=== PATIENT | male | born 1945 | race Two or more races ===

== ENCOUNTER 2023-05-28 16:16 | Inpatient (IN) | payer MEDICARE, OTHER ==
[~2023-05-28] VITALS: Ht 165.1 cm; Wt 64.4 kg
[~2023-05-28 16:16] MED LIST: DOXA1TAB; LANS15CA13
[2023-05-28 18:04] VITALS: O2SAT 94
[2023-05-28 18:11] VITALS: O2SAT 94
[2023-05-28 19:00] VITALS: O2SAT 95
[2023-05-28] MEDS ORDERED: ACETAMINOPHEN 650 MG/20.3 ML UDC GT PRN (20:30)
[2023-05-28] MEDS ORDERED: GLUCAGON,HUMAN RECOMBINANT 1 MG/VIAL VIAL SQ PRN (20:30)
[2023-05-28] MEDS ORDERED: DEXTROSE 50%-WATER 50 ML DISP.SYRIN IV PRN (21:00)
[2023-05-28] MEDS: CHLORHEXIDINE GLUCONATE 15 ML UDC MM SCH (21:00)
[2023-05-28] MEDS: HEPARIN SODIUM, PORCINE 5000 UNITS/1 ML VIAL SQ SCH (21:00)
[2023-05-28] MEDS: LEVETIRACETAM SOL (5 ML) 100 MG/ML UDC GT SCH (21:00)
[2023-05-28] MEDS: BLOOD SUGAR DIAGNOSTIC 1 EACH STRIP IN SCH (21:32)
[2023-05-28] MEDS: INSULIN REGULAR, HUMAN 100 UNIT/ML 3 ML VIAL SQ PRN (21:32)
[2023-05-28] MEDS: LABETALOL HCL (100MG) 100 MG TABLET GT SCH (21:36)
[2023-05-28] MEDS: NEPRO 1,000 ML BOTTLE GT PRN (21:37)
[2023-05-28 22:00] VITALS: BP 141/72; TEMP 97.9; O2SAT 96
[2023-05-28] MEDS: ATORVASTATIN 10 MG TABLET GT SCH (22:00)
[2023-05-29] VITALS (8 sets, daily range): BP systolic 132–145; BP diastolic 68–80; TEMP 97.8–97.9; O2SAT 95–98
[2023-05-29] MEDS ORDERED: Z GUARD REMEDY 4 OZ OINT TP PRN (07:30)
[2023-05-29] MEDS ORDERED: THERAHONEY GEL 1.5 OZ TUBE TP PRN (07:30)
[2023-05-29] MEDS ORDERED: HYDROGEN PEROXIDE 480 ML BOTTLE TP PRN (08:30)
[2023-05-29] MEDS: ZINC OXIDE 56.7 GM TUBE TP SCH (09:00)
[2023-05-29] MEDS ORDERED: PREVACID (NF) 30 MG TAB GT SCH (09:00)
[2023-05-29] MEDS: THERAHONEY GEL 1.5 OZ TUBE TP SCH (09:00)
[2023-05-29] MEDS: Z GUARD REMEDY 4 OZ OINT TP SCH ×2 (09:00→10:00)
[2023-05-29] MEDS: HYDROGEN PEROXIDE 480 ML BOTTLE TP SCH (09:00)
[2023-05-29] MEDS: MINERAL OIL/PETROL OINT 396 GM JAR TP SCH (09:00)
[2023-05-29] MEDS: VITAMINS A AND D 56.7 GM TUBE TP SCH ×3 (09:00)
[2023-05-29] MEDS: MODAFINIL 100 MG TABLET GT SCH (10:00)
[2023-05-29] MEDS: AMLODIPINE BESYLATE 10 MG TABLET GT SCH (10:00)
[2023-05-29] MEDS: VIT B CMPLX 3/FA/VIT C/BIOTIN 1 TAB TABLET GT SCH (10:00)
[2023-05-29] MEDS: ASCORBIC ACID 500 MG TABLET GT SCH (10:00)
[2023-05-29] MEDS ORDERED: SILVER NITRATE APPLICATOR 1 EA BOX TP PRN (10:30)
[2023-05-29] MEDS: DAKINS QUARTER STRENGTH (0.125%) 480 ML BOTTLE TOP SCH (10:51)
[2023-05-29] MEDS: TUBERCULIN,PURIF.PROT.DERIV. 5 TU/0.1 ML VIAL ID SCH (14:20)
[2023-05-29] MEDS: ARGININE/GLUTAMINE/CALCIUM BMB 1 EACH POWD.PACK GT SCH (17:00)
[2023-05-29] MEDS: PROSTAT (PYXIS) 30 ML UDC GT SCH (17:00)
[2023-05-29] MEDS: ACETAMINOPHEN 650 MG/20 ML UDC- SA PATIENTS-PAIN ONLY GT SCH (20:00)
[2023-05-30] VITALS (7 sets, daily range): BP systolic 107–127; BP diastolic 77–100; TEMP 97.5–98.8; O2SAT 94–100
[2023-05-30] MEDS: PANTOPRAZOLE 40 MG/PACK PACK GT SCH (05:50)
[2023-05-30] MEDS: ZINC SULFATE 220 MG CAPSULE GT SCH (09:33)
[2023-05-30 11:16] LABS: BASOPHILS # (AUTO) 0.1 K/uL (0.0-0.2); BASOPHILS % (AUTO) 1.3 % (0.0-2.0); EOSINOPHILS # (AUTO) 0.5 K/uL (0.0-0.7); HEMATOCRIT 32 % (39-51); HEMOGLOBIN 10.5 g/dL (13.5-17.5); LYMPHOCYTES # (AUTO) 0.7 K/uL (0.8-4.8); LYMPHOCYTES % (AUTO) 7.7 % (20.0-44.0); MEAN CORPUSCULAR HEMOGLOBIN 30 PG (26.0-33.0); MEAN CORPUSCULAR HGB CONC 33 g/dl (31.0-36.0); MEAN CORPUSCULAR VOLUME 92 fL (80-96); MONOCYTES # (AUTO) 0.7 K/uL (0.1-1.30); MONOCYTES % (AUTO) 8.4 % (2.0-12.0); NEUTROPHILS # (AUTO) 6.8 K/uL (1.8-8.9); NEUTROPHILS % (AUTO) 76.6 % (43.0-81.0); PLATELET COUNT (AUTO) 257 K/uL (150-450); RED CELL DISTRIBUTION WIDTH 18.4 % (11.5-15.0); WHITE BLOOD COUNT (AUTO) 8.8 K/uL (4.3-11.0)
[2023-05-30 11:26] LABS: ALBUMIN 2.2 g/dL (3.4-5.0); BILIRUBIN,TOTAL 0.3 mg/dL (0.2-1.0); CALCIUM, SERUM 10.6 mg/dL (8.5-10.1); CREATININE 0.9 mg/dL (0.6-1.3); MAGNESIUM 1.7 mg/dL (1.8-2.4); PHOSPHORUS 5.2 mg/dL (2.5-4.9); POTASSIUM 3.4 mmol/L (3.5-5.1); TOTAL PROTEIN, SERUM 7.5 g/dL (6.4-8.2)
[2023-05-30] MEDS: EPOETIN ALFA (10,000 UNIT) 10,000 UNIT/ML VIAL SQ SCH (15:00)
[2023-05-30] MEDS: MEROPENEM 1 G in IV NS 0.9% 100 ML IV SCH (16:46)
[2023-05-30] MEDS: PNEUMOCOCCAL 23-VAL P-SAC VAC 0.5 ML VIAL IM ONE (17:20)
[2023-05-30] MEDS: VANCOMYCIN 0.75 GM in IV D5W 250 ML IV SCH (18:42)
[2023-05-30] MEDS: Magnesium 1GM/D5W 100ML PREMIX 100 ML IV SCH (19:00)
[2023-05-30] MEDS: POTASSIUM CHLORIDE 20 MEQ POWDER PACKET GT SCH (19:01)
[2023-05-30] MEDS ORDERED: IPRATROPIUM NEB FS 0.5 MG/2.5 ML AMPUL.NEB NEB PRN (21:00)
[2023-05-30] MEDS ORDERED: IPRATROPIUM NEB FS 0.5 MG/2.5 ML AMPUL.NEB NEB SCH (21:00)
[2023-05-30] MEDS ORDERED: ALBUTEROL FS 2.5 MG/3 ML VIAL.NEB NEB PRN (21:00)
[2023-05-31] VITALS (10 sets, daily range): BP systolic 111–138; BP diastolic 67–70; TEMP 97.7; O2SAT 93–98
[2023-05-31] MEDS: IPRATROPIUM NEB FS 0.5 MG/2.5 ML AMPUL.NEB NEB SCH (01:18)
[2023-05-31] MEDS: ALBUTEROL FS 2.5 MG/3 ML VIAL.NEB NEB SCH (01:19)
[2023-05-31 08:46] LABS: CALCIUM, SERUM 10.8 mg/dL (8.5-10.1); CARBON DIOXIDE 30 mmol/L (21-32); CHLORIDE 98 mmol/L (98-107); CREATININE 0.8 mg/dL (0.6-1.3); GLUCOSE 119 mg/dL (74-106); POTASSIUM 3.8 mmol/L (3.5-5.1); SODIUM SERUM 135 mmol/L (136-145); UREA NITROGEN, BLOOD 48 mg/dL (7-18)
[2023-05-31] MEDS: MEROPENEM 1 G in IV NS 0.9% 100 ML IV SCH (21:00)
[2023-06-01] VITALS (12 sets, daily range): BP systolic 116–133; BP diastolic 69–82; TEMP 97.4–97.7; O2SAT 95–98
[2023-06-01 07:53] LABS: CALCIUM, SERUM 10.9 mg/dL (8.5-10.1); CARBON DIOXIDE 25 mmol/L (21-32); CHLORIDE 98 mmol/L (98-107); CREATININE 0.9 mg/dL (0.6-1.3); GLUCOSE 118 mg/dL (74-106); POTASSIUM 3.9 mmol/L (3.5-5.1); SODIUM SERUM 134 mmol/L (136-145); UREA NITROGEN, BLOOD 62 mg/dL (7-18)
[2023-06-01] MEDS: MEROPENEM 1 G in IV NS 0.9% 100 ML IV SCH (09:00)
[2023-06-01] MEDS: IV 1/2NS 1000 ML 1,000 ML IV PRN (12:37)
[2023-06-01] MEDS ORDERED: Z GUARD REMEDY 2 OZ OINT TP SCH (21:00)
[2023-06-01] MEDS: Z GUARD REMEDY 4 OZ OINT TP SCH (21:04)
[2023-06-01] MEDS: DAKINS QUARTER STRENGTH (0.125%) 480 ML BOTTLE TOP SCH (21:04)
[2023-06-02] VITALS (11 sets, daily range): BP systolic 132–136; BP diastolic 77–83; TEMP 97.7–98.4; O2SAT 94–100
[2023-06-02 07:27] LABS: CALCIUM, SERUM 10.5 mg/dL (8.5-10.1); CREATININE 0.8 mg/dL (0.6-1.3); POTASSIUM 4.3 mmol/L (3.5-5.1)
[2023-06-02] MEDS: IV NS 0.9% 1,000 ML IV SCH (11:17)
[2023-06-03] VITALS (12 sets, daily range): BP systolic 121–134; BP diastolic 86–87; TEMP 98.1–98.2; O2SAT 97–100
[2023-06-03 07:43] LABS: CALCIUM, SERUM 10.8 mg/dL (8.5-10.1); CREATININE 0.8 mg/dL (0.6-1.3); MAGNESIUM 2.1 mg/dL (1.8-2.4); PHOSPHORUS 3.8 mg/dL (2.5-4.9); POTASSIUM 4.3 mmol/L (3.5-5.1)
[2023-06-03] MEDS: VANCOMYCIN 1 GM in IV D5W 250 ML IV SCH (09:00)
[2023-06-04] VITALS (12 sets, daily range): BP systolic 127–134; BP diastolic 71–86; TEMP 97.9; O2SAT 96–100
[2023-06-04 08:35] LABS: CALCIUM, SERUM 10.2 mg/dL (8.5-10.1); CARBON DIOXIDE 26 mmol/L (21-32); CHLORIDE 102 mmol/L (98-107); CREATININE 0.8 mg/dL (0.6-1.3); GLUCOSE 101 mg/dL (74-106); POTASSIUM 4.1 mmol/L (3.5-5.1); SODIUM SERUM 135 mmol/L (136-145); UREA NITROGEN, BLOOD 48 mg/dL (7-18)
[2023-06-05] VITALS (12 sets, daily range): BP systolic 126–142; BP diastolic 62–71; TEMP 97.9–98.1; O2SAT 95–100
[2023-06-05 08:09] LABS: CALCIUM, SERUM 10.1 mg/dL (8.5-10.1); CREATININE 0.8 mg/dL (0.6-1.3); POTASSIUM 4.4 mmol/L (3.5-5.1)
[2023-06-05] MEDS: VANCOMYCIN 1 GM in IV D5W 250 ML IV SCH (22:17)
[2023-06-06] VITALS (13 sets, daily range): BP systolic 97–115; BP diastolic 61–77; TEMP 97.8–98.4; O2SAT 97–99
[2023-06-06 08:15] LABS: CALCIUM, SERUM 9.9 mg/dL (8.5-10.1); CREATININE 0.8 mg/dL (0.6-1.3); POTASSIUM 4.2 mmol/L (3.5-5.1)
[2023-06-06 12:03] LABS: MAGNESIUM 1.8 mg/dL (1.8-2.4); PHOSPHORUS 3.5 mg/dL (2.5-4.9)
[2023-06-06 16:57] LABS: HEMOGLOBIN 11.7 g/dL (13.5-17.5)
[2023-06-07] VITALS (14 sets, daily range): BP systolic 106–111; BP diastolic 69–79; TEMP 97.6–98.6; O2SAT 93–99
[2023-06-07 07:23] LABS: CALCIUM, SERUM 10.3 mg/dL (8.5-10.1); CREATININE 0.8 mg/dL (0.6-1.3); POTASSIUM 4.3 mmol/L (3.5-5.1)
[2023-06-07] MEDS ORDERED: BARIUM SULFATE 98% 135 ML SUSP.RECON PO ONE (13:11)
[2023-06-08] VITALS (13 sets, daily range): BP systolic 115–128; BP diastolic 73–82; TEMP 97.7–97.9; O2SAT 95–100
[2023-06-08] MEDS: LIDOCAINE 1%-EPI 1:100,000 20 ML VIAL TP ONE (06:12)
[2023-06-08 08:13] LABS: CALCIUM, SERUM 10.5 mg/dL (8.5-10.1); CREATININE 0.8 mg/dL (0.6-1.3); POTASSIUM 4.5 mmol/L (3.5-5.1)
[2023-06-08] MEDS ORDERED: IPRATROPIUM NEB FS 0.5 MG/2.5 ML AMPUL.NEB NEB PRN (10:21)
[2023-06-08] MEDS ORDERED: ALBUTEROL FS 2.5 MG/3 ML VIAL.NEB NEB PRN (10:21)
[2023-06-08] MEDS: IPRATROPIUM NEB FS 0.5 MG/2.5 ML AMPUL.NEB NEB SCH (12:50)
[2023-06-08] MEDS: LOPERAMIDE HCL UDC 2 MG/15 ML LIQUID GT ONE (20:59)
[2023-06-09] VITALS (11 sets, daily range): BP systolic 102–121; BP diastolic 69–87; TEMP 97.7; O2SAT 94–98
[2023-06-09] MEDS ORDERED: LOPERAMIDE HCL UDC 2 MG/15 ML LIQUID GT PRN (01:00)
[2023-06-09] MEDS: PANTOPRAZOLE 40 MG/PACK PACK GT SCH (05:17)
[2023-06-09 09:32] LABS: CALCIUM, SERUM 10.6 mg/dL (8.5-10.1); POTASSIUM 4.6 mmol/L (3.5-5.1)
[2023-06-10] VITALS (10 sets, daily range): BP systolic 94–125; BP diastolic 70–73; TEMP 97.9–98.8; O2SAT 96–100
[2023-06-10 10:12] LABS: CALCIUM, SERUM 10.4 mg/dL (8.5-10.1); CARBON DIOXIDE 25 mmol/L (21-32); CHLORIDE 97 mmol/L (98-107); CREATININE 0.9 mg/dL (0.6-1.3); GLUCOSE 127 mg/dL (74-106); POTASSIUM 4.2 mmol/L (3.5-5.1); SODIUM SERUM 129 mmol/L (136-145); UREA NITROGEN, BLOOD 57 mg/dL (7-18)
[2023-06-11] VITALS (12 sets, daily range): BP systolic 107–114; BP diastolic 71–72; TEMP 97.5–97.7; O2SAT 95–100
[2023-06-11 06:43] LABS: BASOPHILS # (AUTO) 0.2 K/uL (0.0-0.2); BASOPHILS % (AUTO) 1.8 % (0.0-2.0); EOSINOPHILS # (AUTO) 0.4 K/uL (0.0-0.7); EOSINOPHILS % (AUTO) 4.2 % (0.0-6.0); HEMATOCRIT 36 % (39-51); LYMPHOCYTES # (AUTO) 0.8 K/uL (0.8-4.8); LYMPHOCYTES % (AUTO) 9.2 % (20.0-44.0); MEAN CORPUSCULAR HEMOGLOBIN 30 PG (26.0-33.0); MEAN CORPUSCULAR HGB CONC 34 g/dl (31.0-36.0); MEAN CORPUSCULAR VOLUME 89 fL (80-96); MONOCYTES # (AUTO) 0.4 K/uL (0.1-1.30); MONOCYTES % (AUTO) 4.8 % (2.0-12.0); NEUTROPHILS # (AUTO) 7.1 K/uL (1.8-8.9); PLATELET COUNT (AUTO) 214 K/uL (150-450); RED BLOOD CELL COUNT(AUTO) 3.97 MIL/uL (4.5-6.0); WHITE BLOOD COUNT (AUTO) 8.9 K/uL (4.3-11.0)
[2023-06-11 07:05] LABS: CALCIUM, SERUM 10.7 mg/dL (8.5-10.1); CREATININE 0.8 mg/dL (0.6-1.3); POTASSIUM 4.7 mmol/L (3.5-5.1)
[2023-06-12] VITALS (13 sets, daily range): BP systolic 112–147; BP diastolic 73–87; TEMP 98.1–98.2; O2SAT 94–99
[2023-06-12 09:33] LABS: CALCIUM, SERUM 10.3 mg/dL (8.5-10.1); CREATININE 0.8 mg/dL (0.6-1.3); POTASSIUM 4.9 mmol/L (3.5-5.1)
[2023-06-12] MEDS: VANCOMYCIN 1 GM in IV D5W 250 ML IV SCH (17:48)
[2023-06-13] VITALS (12 sets, daily range): BP systolic 94–96; BP diastolic 61–74; TEMP 97.5–97.7; O2SAT 95–100
[2023-06-13 09:46] LABS: CALCIUM, SERUM 10.5 mg/dL (8.5-10.1); CREATININE 0.9 mg/dL (0.6-1.3); POTASSIUM 5.5 mmol/L (3.5-5.1)
[2023-06-13] MEDS: SODIUM POLYSTYRENE SULFONATE 15 G/60 ML BOTTLE PO ONE (16:53)
[2023-06-14] VITALS (14 sets, daily range): BP systolic 88–105; BP diastolic 61–72; TEMP 98.1–98.4; O2SAT 91–99
[2023-06-14 08:03] LABS: CALCIUM, SERUM 8.6 mg/dL (8.5-10.1); CREATININE 0.8 mg/dL (0.6-1.3); POTASSIUM 4.2 mmol/L (3.5-5.1)
[2023-06-15] VITALS (13 sets, daily range): BP systolic 110–111; BP diastolic 69–70; TEMP 97.5–98.1; O2SAT 94–97
[2023-06-15 08:05] LABS: CALCIUM, SERUM 10.6 mg/dL (8.5-10.1); CARBON DIOXIDE 27 mmol/L (21-32); CHLORIDE 95 mmol/L (98-107); CREATININE 0.9 mg/dL (0.6-1.3); GLUCOSE 101 mg/dL (74-106); POTASSIUM 3.9 mmol/L (3.5-5.1); SODIUM SERUM 130 mmol/L (136-145); UREA NITROGEN, BLOOD 55 mg/dL (7-18)
[2023-06-15] MEDS: BISACODYL SUPP (10 MG) 10 MG/SUPP.RECT SUPP.RECT RC PRN (19:12)
[2023-06-16] VITALS (12 sets, daily range): BP systolic 102–103; BP diastolic 63–66; TEMP 97.6–98.1; O2SAT 93–99
[2023-06-16 08:16] LABS: CALCIUM, SERUM 10.6 mg/dL (8.5-10.1); CARBON DIOXIDE 28 mmol/L (21-32); CHLORIDE 94 mmol/L (98-107); CREATININE 0.8 mg/dL (0.6-1.3); GLUCOSE 91 mg/dL (74-106); POTASSIUM 3.7 mmol/L (3.5-5.1); SODIUM SERUM 130 mmol/L (136-145); UREA NITROGEN, BLOOD 62 mg/dL (7-18)
[2023-06-17] VITALS (12 sets, daily range): BP systolic 101–137; BP diastolic 71–82; TEMP 97.7–97.8; O2SAT 93–99
[2023-06-17 07:43] LABS: CALCIUM, SERUM 10.5 mg/dL (8.5-10.1); CREATININE 0.9 mg/dL (0.6-1.3); POTASSIUM 3.8 mmol/L (3.5-5.1)
[2023-06-18] VITALS (14 sets, daily range): BP systolic 94–122; BP diastolic 65–87; TEMP 97.9–98.2; O2SAT 93–99
[2023-06-18 07:25] LABS: BASOPHILS # (AUTO) 0.1 K/uL (0.0-0.2); BASOPHILS % (AUTO) 1.2 % (0.0-2.0); EOSINOPHILS # (AUTO) 0.3 K/uL (0.0-0.7); EOSINOPHILS % (AUTO) 2.7 % (0.0-6.0); HEMATOCRIT 35 % (39-51); HEMOGLOBIN 11.7 g/dL (13.5-17.5); LYMPHOCYTES # (AUTO) 0.7 K/uL (0.8-4.8); LYMPHOCYTES % (AUTO) 7.8 % (20.0-44.0); MEAN CORPUSCULAR HEMOGLOBIN 30 PG (26.0-33.0); MEAN CORPUSCULAR HGB CONC 33 g/dl (31.0-36.0); MEAN CORPUSCULAR VOLUME 91 fL (80-96); MONOCYTES # (AUTO) 0.8 K/uL (0.1-1.30); MONOCYTES % (AUTO) 8.8 % (2.0-12.0); NEUTROPHILS # (AUTO) 7.3 K/uL (1.8-8.9); NEUTROPHILS % (AUTO) 79.5 % (43.0-81.0); PLATELET COUNT (AUTO) 209 K/uL (150-450); RED BLOOD CELL COUNT(AUTO) 3.86 MIL/uL (4.5-6.0); RED CELL DISTRIBUTION WIDTH 18.6 % (11.5-15.0); WHITE BLOOD COUNT (AUTO) 9.2 K/uL (4.3-11.0)
[2023-06-18 08:30] LABS: CREATININE 0.9 mg/dL (0.6-1.3); POTASSIUM 3.8 mmol/L (3.5-5.1)
[2023-06-18 08:42] LABS: CALCIUM, SERUM 10.7 mg/dL (8.5-10.1)
[2023-06-19] VITALS (12 sets, daily range): BP systolic 112–122; BP diastolic 70–83; TEMP 97.7–97.9; O2SAT 95–99
[2023-06-20] VITALS (12 sets, daily range): BP systolic 108–128; BP diastolic 67–77; TEMP 97–97.9; O2SAT 94–99
[2023-06-20 08:18] LABS: CALCIUM, SERUM 10.9 mg/dL (8.5-10.1); CREATININE 0.9 mg/dL (0.6-1.3); POTASSIUM 3.4 mmol/L (3.5-5.1)
[2023-06-20] MEDS: POTASSIUM CHLORIDE 20 MEQ POWDER PACKET NG SCH (15:27)
[2023-06-21] VITALS (12 sets, daily range): BP systolic 93–121; BP diastolic 68–75; TEMP 97.4–99; O2SAT 96–100
[2023-06-21 08:07] LABS: VIT D, 25-HYDROXY 42.7 ng/mL (30.0-100.0)
[2023-06-21 08:12] LABS: CALCIUM, SERUM 10.9 mg/dL (8.5-10.1); CARBON DIOXIDE 28 mmol/L (21-32); CHLORIDE 100 mmol/L (98-107); CREATININE 0.9 mg/dL (0.6-1.3); GLUCOSE 106 mg/dL (74-106); SODIUM SERUM 134 mmol/L (136-145); UREA NITROGEN, BLOOD 70 mg/dL (7-18)
[2023-06-22] VITALS (12 sets, daily range): BP systolic 94–103; BP diastolic 61–66; TEMP 98.2–98.4; O2SAT 95–99
[2023-06-22 08:13] LABS: CALCIUM, SERUM 10.2 mg/dL (8.5-10.1); CARBON DIOXIDE 23 mmol/L (21-32); CHLORIDE 99 mmol/L (98-107); CREATININE 0.7 mg/dL (0.6-1.3); GLUCOSE 103 mg/dL (74-106); SODIUM SERUM 133 mmol/L (136-145); UREA NITROGEN, BLOOD 59 mg/dL (7-18)
[2023-06-22] MEDS: Z GUARD REMEDY 4 OZ OINT TP SCH (09:06)
[2023-06-22] MEDS: THERAHONEY GEL 1.5 OZ TUBE TP SCH (09:07)
[2023-06-22] MEDS: VANCOMYCIN 1 GM in IV D5W 250 ML IV SCH (18:55)
[2023-06-23] VITALS (11 sets, daily range): BP systolic 103–115; BP diastolic 71–72; TEMP 97.4–98.9; O2SAT 95–99
[2023-06-23 08:49] LABS: CALCIUM, SERUM 10.6 mg/dL (8.5-10.1); CREATININE 0.9 mg/dL (0.6-1.3); POTASSIUM 3.7 mmol/L (3.5-5.1)
[2023-06-24] VITALS (11 sets, daily range): BP systolic 105–116; BP diastolic 70–78; TEMP 97–97.9; O2SAT 94–99
[2023-06-24 08:19] LABS: CALCIUM, SERUM 10.9 mg/dL (8.5-10.1); CREATININE 0.8 mg/dL (0.6-1.3); POTASSIUM 3.7 mmol/L (3.5-5.1)
[2023-06-24] MEDS: VANCOMYCIN 1 GM in IV D5W 250 ML IV SCH (17:35)
[2023-06-25] VITALS (13 sets, daily range): BP systolic 117–119; BP diastolic 68–82; TEMP 97.7–98.6; O2SAT 95–99
[2023-06-25 08:42] LABS: CALCIUM, SERUM 10.7 mg/dL (8.5-10.1); CREATININE 0.7 mg/dL (0.6-1.3); POTASSIUM 3.8 mmol/L (3.5-5.1)
[2023-06-26] VITALS (12 sets, daily range): BP systolic 107–116; BP diastolic 70–76; TEMP 98.4–98.6; O2SAT 94–100
[2023-06-26 08:14] LABS: CALCIUM, SERUM 10.9 mg/dL (8.5-10.1); CARBON DIOXIDE 29 mmol/L (21-32); CHLORIDE 104 mmol/L (98-107); CREATININE 0.9 mg/dL (0.6-1.3); GLUCOSE 107 mg/dL (74-106); POTASSIUM 3.4 mmol/L (3.5-5.1); SODIUM SERUM 141 mmol/L (136-145); UREA NITROGEN, BLOOD 50 mg/dL (7-18)
[2023-06-26] MEDS: POTASSIUM CHLORIDE 20 MEQ POWDER PACKET GT ONE (14:02)
[2023-06-27] VITALS (12 sets, daily range): BP systolic 98–104; BP diastolic 74–85; TEMP 98.1–98.3; O2SAT 95–100
[2023-06-27 07:49] LABS: CALCIUM, SERUM 11.5 mg/dL (8.5-10.1); CREATININE 0.9 mg/dL (0.6-1.3); POTASSIUM 3.8 mmol/L (3.5-5.1)
[2023-06-28] VITALS (13 sets, daily range): BP systolic 109–112; BP diastolic 71–75; TEMP 98.2–98.6; O2SAT 95–99
[2023-06-28 08:40] LABS: CARBON DIOXIDE 26 mmol/L (21-32); CHLORIDE 104 mmol/L (98-107); CREATININE 0.9 mg/dL (0.6-1.3); GLUCOSE 99 mg/dL (74-106); SODIUM SERUM 138 mmol/L (136-145); UREA NITROGEN, BLOOD 52 mg/dL (7-18)
[2023-06-29] VITALS (12 sets, daily range): BP systolic 112; BP diastolic 72–73; TEMP 98.1–98.6; O2SAT 94–100
[2023-06-29 07:43] LABS: BASOPHILS # (AUTO) 0.1 K/uL (0.0-0.2); BASOPHILS % (AUTO) 0.8 % (0.0-2.0); EOSINOPHILS # (AUTO) 0.3 K/uL (0.0-0.7); EOSINOPHILS % (AUTO) 3.8 % (0.0-6.0); HEMATOCRIT 35 % (39-51); HEMOGLOBIN 11.9 g/dL (13.5-17.5); LYMPHOCYTES # (AUTO) 0.7 K/uL (0.8-4.8); LYMPHOCYTES % (AUTO) 8.4 % (20.0-44.0); MEAN CORPUSCULAR HEMOGLOBIN 31 PG (26.0-33.0); MEAN CORPUSCULAR HGB CONC 34 g/dl (31.0-36.0); MEAN CORPUSCULAR VOLUME 93 fL (80-96); MONOCYTES # (AUTO) 0.7 K/uL (0.1-1.30); MONOCYTES % (AUTO) 8.3 % (2.0-12.0); NEUTROPHILS # (AUTO) 6.9 K/uL (1.8-8.9); NEUTROPHILS % (AUTO) 78.7 % (43.0-81.0); PLATELET COUNT (AUTO) 197 K/uL (150-450); RED CELL DISTRIBUTION WIDTH 18.1 % (11.5-15.0); WHITE BLOOD COUNT (AUTO) 8.8 K/uL (4.3-11.0)
[2023-06-29 07:49] LABS: CALCIUM, SERUM 10.9 mg/dL (8.5-10.1); CARBON DIOXIDE 25 mmol/L (21-32); CHLORIDE 103 mmol/L (98-107); CREATININE 0.9 mg/dL (0.6-1.3); GLUCOSE 98 mg/dL (74-106); POTASSIUM 4.2 mmol/L (3.5-5.1); SODIUM SERUM 137 mmol/L (136-145); UREA NITROGEN, BLOOD 53 mg/dL (7-18)
[2023-06-29] MEDS: VITAMINS A AND D 56.7 GM TUBE TP SCH (08:58)
[2023-06-30] VITALS (12 sets, daily range): BP systolic 101–125; BP diastolic 66–78; TEMP 97.7–98.1; O2SAT 94–100
[2023-06-30 09:27] LABS: CALCIUM, SERUM 10.9 mg/dL (8.5-10.1); POTASSIUM 3.5 mmol/L (3.5-5.1)
[2023-07-01] VITALS (13 sets, daily range): BP systolic 109–110; BP diastolic 69–70; TEMP 97.9; O2SAT 95–100
[2023-07-01 08:16] LABS: CALCIUM, SERUM 11.4 mg/dL (8.5-10.1); POTASSIUM 3.7 mmol/L (3.5-5.1)
[2023-07-02] VITALS (12 sets, daily range): BP systolic 98–101; BP diastolic 62–67; TEMP 97.7–98.9; O2SAT 95–100
[2023-07-02 07:09] LABS: CREATININE 0.8 mg/dL (0.6-1.3); POTASSIUM 3.6 mmol/L (3.5-5.1)
[2023-07-03] VITALS (12 sets, daily range): BP systolic 104–125; BP diastolic 65–79; TEMP 97.5–99.1; O2SAT 95–100
[2023-07-03 07:34] LABS: CALCIUM, SERUM 10.8 mg/dL (8.5-10.1); CREATININE 0.8 mg/dL (0.6-1.3); POTASSIUM 3.5 mmol/L (3.5-5.1)
[2023-07-04] VITALS (12 sets, daily range): BP systolic 104–105; BP diastolic 69–88; TEMP 97.9–98.6; O2SAT 91–100
[2023-07-04 07:58] LABS: CALCIUM, SERUM 11.4 mg/dL (8.5-10.1); CREATININE 0.9 mg/dL (0.6-1.3); POTASSIUM 3.4 mmol/L (3.5-5.1)
[2023-07-04] MEDS: POTASSIUM CHLORIDE 20 MEQ POWDER PACKET GT ONE (20:53)
[2023-07-05] VITALS (12 sets, daily range): BP systolic 107; BP diastolic 74; TEMP 97.5; O2SAT 94–98
[2023-07-05 07:26] LABS: CALCIUM, SERUM 11.3 mg/dL (8.5-10.1); CREATININE 0.9 mg/dL (0.6-1.3); POTASSIUM 4.2 mmol/L (3.5-5.1)
[2023-07-06] VITALS (12 sets, daily range): BP systolic 96–106; BP diastolic 70–77; TEMP 97.5–97.9; O2SAT 95–99
[2023-07-06 07:57] LABS: CALCIUM, SERUM 10.9 mg/dL (8.5-10.1); CARBON DIOXIDE 26 mmol/L (21-32); CHLORIDE 101 mmol/L (98-107); CREATININE 0.8 mg/dL (0.6-1.3); GLUCOSE 103 mg/dL (74-106); POTASSIUM 3.8 mmol/L (3.5-5.1); SODIUM SERUM 136 mmol/L (136-145); UREA NITROGEN, BLOOD 55 mg/dL (7-18)
[2023-07-06 12:02] LABS: BASOPHILS # (AUTO) 0.1 K/uL (0.0-0.2); BASOPHILS % (AUTO) 1.1 % (0.0-2.0); EOSINOPHILS # (AUTO) 0.3 K/uL (0.0-0.7); EOSINOPHILS % (AUTO) 3.6 % (0.0-6.0); HEMATOCRIT 32 % (39-51); HEMOGLOBIN 10.8 g/dL (13.5-17.5); LYMPHOCYTES # (AUTO) 0.7 K/uL (0.8-4.8); LYMPHOCYTES % (AUTO) 8.8 % (20.0-44.0); MEAN CORPUSCULAR HEMOGLOBIN 31 PG (26.0-33.0); MEAN CORPUSCULAR HGB CONC 34 g/dl (31.0-36.0); MEAN CORPUSCULAR VOLUME 92 fL (80-96); MONOCYTES # (AUTO) 0.9 K/uL (0.1-1.30); MONOCYTES % (AUTO) 10.7 % (2.0-12.0); NEUTROPHILS % (AUTO) 75.8 % (43.0-81.0); PLATELET COUNT (AUTO) 199 K/uL (150-450); RED BLOOD CELL COUNT(AUTO) 3.45 MIL/uL (4.5-6.0); RED CELL DISTRIBUTION WIDTH 17.9 % (11.5-15.0)
[2023-07-06 17:12] LABS: APPEARANCE,URINE CLEAR (CLEAR); BILIRUBIN,URINE NEGATIVE (NEGATIVE); BLOOD, URINE NEGATIVE Ery/uL (NEGATIVE); COLOR,URINE YELLOW (YELLOW); KETONES,URINE NEGATIVE (NEGATIVE); LEUKOCYTE ESTERASE ,URINE NEGATIVE (NEGATIVE); NITRITE, URINE NEGATIVE (NEGATIVE); PROTEIN,URINE TRACE mg/dl (NEGATIVE); UGLUCOSE NEGATIVE (NEGATIVE); UROBILINOGEN,URINE 0.2 EU/dL (0.2)
[2023-07-06] MEDS: VANCOMYCIN HCL 1.25 GM in IV D5W 250 ML IV SCH (17:26)
[2023-07-06 17:37] LABS: ADD URINE CULTURE NO; BACTERIA,URINE None seen /HPF (None Seen); RBC,URINE 0-2 /HPF (0-2); WBC,URINE 0-2 /HPF (0-3)
[2023-07-06 17:38] LABS: MUCUS,URINE Few /LPF (None Seen); SQUAMOUS EPITHELIAL CELL,UR 0-2 /HPF (None Seen)
[2023-07-06] MEDS: IV NS 0.9% 1,000 ML IV SCH (20:40)
[2023-07-07] VITALS (14 sets, daily range): BP systolic 100–113; BP diastolic 62–72; TEMP 98–98.1; O2SAT 94–100
[2023-07-07 08:12] LABS: CALCIUM, SERUM 10.7 mg/dL (8.5-10.1); CARBON DIOXIDE 25 mmol/L (21-32); CHLORIDE 103 mmol/L (98-107); CREATININE 0.7 mg/dL (0.6-1.3); GLUCOSE 109 mg/dL (74-106); POTASSIUM 3.6 mmol/L (3.5-5.1); SODIUM SERUM 138 mmol/L (136-145); UREA NITROGEN, BLOOD 48 mg/dL (7-18)
[2023-07-08] VITALS (13 sets, daily range): BP systolic 112–132; BP diastolic 62–67; TEMP 98–98.1; O2SAT 95–100
[2023-07-08 07:44] LABS: CALCIUM, SERUM 10.3 mg/dL (8.5-10.1); CREATININE 0.7 mg/dL (0.6-1.3); POTASSIUM 3.7 mmol/L (3.5-5.1)
[2023-07-09] VITALS (12 sets, daily range): BP systolic 99–118; BP diastolic 59–69; TEMP 97.3–98.1; O2SAT 94–99
[2023-07-09 07:41] LABS: CALCIUM, SERUM 10.1 mg/dL (8.5-10.1); CREATININE 0.7 mg/dL (0.6-1.3); POTASSIUM 3.6 mmol/L (3.5-5.1)
[2023-07-10] VITALS (12 sets, daily range): BP systolic 107–113; BP diastolic 66–67; TEMP 97.7–98.9; O2SAT 96–100
[2023-07-10 07:30] LABS: CALCIUM, SERUM 10.3 mg/dL (8.5-10.1); CARBON DIOXIDE 25 mmol/L (21-32); CHLORIDE 103 mmol/L (98-107); CREATININE 0.7 mg/dL (0.6-1.3); GLUCOSE 95 mg/dL (74-106); POTASSIUM 3.7 mmol/L (3.5-5.1); SODIUM SERUM 138 mmol/L (136-145); UREA NITROGEN, BLOOD 40 mg/dL (7-18)
[2023-07-11] VITALS (14 sets, daily range): BP systolic 92–104; BP diastolic 52–64; TEMP 98–98.1; O2SAT 95–99
[2023-07-11 08:13] LABS: CALCIUM, SERUM 10.3 mg/dL (8.5-10.1); CREATININE 0.6 mg/dL (0.6-1.3); POTASSIUM 3.5 mmol/L (3.5-5.1)
[2023-07-11] MEDS ORDERED: NYSTATIN TOP POWDER 15 GM BOTTLE TP PRN (12:00)
[2023-07-11] MEDS: NYSTATIN TOP POWDER 15 GM BOTTLE TP SCH (20:41)
[2023-07-12] VITALS (11 sets, daily range): BP systolic 116; BP diastolic 69; TEMP 98.8; O2SAT 92–100
[2023-07-12 07:49] LABS: CALCIUM, SERUM 10.6 mg/dL (8.5-10.1); CREATININE 0.7 mg/dL (0.6-1.3); POTASSIUM 3.7 mmol/L (3.5-5.1)
[2023-07-13] VITALS (12 sets, daily range): BP systolic 96–100; BP diastolic 60–64; TEMP 97.9–98.8; O2SAT 94–99
[2023-07-13 08:06] LABS: CALCIUM, SERUM 10.9 mg/dL (8.5-10.1); CARBON DIOXIDE 28 mmol/L (21-32); CHLORIDE 103 mmol/L (98-107); CREATININE 0.7 mg/dL (0.6-1.3); GLUCOSE 115 mg/dL (74-106); POTASSIUM 3.4 mmol/L (3.5-5.1); SODIUM SERUM 139 mmol/L (136-145); UREA NITROGEN, BLOOD 33 mg/dL (7-18)
[2023-07-13] MEDS ORDERED: CLOTRIMAZOLE/BETAMETASONE DIPROPIONATE 15 GM TUBE TP PRN (14:00)
[2023-07-13] MEDS: POTASSIUM CHLORIDE 20 MEQ POWDER PACKET GT ONE (14:00)
[2023-07-13] MEDS: POLYVINYL ALCOHOL 15 ML BOTTLE EACHEYE SCH (15:00)
[2023-07-13] MEDS ORDERED: DEXTROSE 50%-WATER 50 ML DISP.SYRIN IV PRN (19:10)
[2023-07-13] MEDS: CLOTRIMAZOLE/BETAMETASONE DIPROPIONATE 15 GM TUBE TP SCH ×2 (21:14)
[2023-07-13] MEDS: HYDROCORTISONE 1% CREAM 28.35 GM TUBE TP SCH (21:14)
[2023-07-13] MEDS: THERAHONEY GEL 1.5 OZ TUBE TP SCH (21:15)
[2023-07-14] VITALS (12 sets, daily range): BP systolic 118–139; BP diastolic 90–96; TEMP 97.9–98.6; O2SAT 93–99
[2023-07-14] MEDS: BLOOD SUGAR DIAGNOSTIC 1 EACH STRIP IN SCH (05:14)
[2023-07-15] VITALS (12 sets, daily range): BP systolic 103–120; BP diastolic 65; TEMP 97.5–97.7; O2SAT 94–98
[2023-07-15] MEDS: INSULIN REGULAR, HUMAN 100 UNIT/ML 3 ML VIAL SQ PRN (05:42)
[2023-07-16] VITALS (11 sets, daily range): BP systolic 120; BP diastolic 69; TEMP 97.9; O2SAT 94–99
[2023-07-17] VITALS (12 sets, daily range): BP systolic 118–132; BP diastolic 61–75; TEMP 97.8–98.6; O2SAT 95–99
[2023-07-18] VITALS (12 sets, daily range): BP systolic 109–131; BP diastolic 67–79; TEMP 97.9–98.3; O2SAT 94–100
[2023-07-18] MEDS: IV NS 0.9% 1,000 ML IV SCH (11:30)
[2023-07-19] VITALS (13 sets, daily range): BP systolic 107–138; BP diastolic 61–69; TEMP 97.7–98.6; O2SAT 94–100
[2023-07-19 08:07] LABS: CALCIUM, SERUM 10.6 mg/dL (8.5-10.1); CARBON DIOXIDE 24 mmol/L (21-32); CHLORIDE 103 mmol/L (98-107); CREATININE 0.7 mg/dL (0.6-1.3); GLUCOSE 106 mg/dL (74-106); POTASSIUM 4.2 mmol/L (3.5-5.1); SODIUM SERUM 135 mmol/L (136-145); UREA NITROGEN, BLOOD 52 mg/dL (7-18)
[2023-07-20] VITALS (13 sets, daily range): BP systolic 111–136; BP diastolic 67–82; TEMP 97.5–97.9; O2SAT 96–100
[2023-07-20] MEDS: LEVOTHYROXINE SODIUM 75 MCG TABLET GT SCH (05:08)
[2023-07-20 08:02] LABS: CALCIUM, SERUM 10.3 mg/dL (8.5-10.1); CREATININE 0.7 mg/dL (0.6-1.3); POTASSIUM 3.5 mmol/L (3.5-5.1)
[2023-07-21] VITALS (14 sets, daily range): BP systolic 110–112; BP diastolic 61–63; TEMP 97.4–99.1; O2SAT 96–98
[2023-07-21] MEDS: MELATONIN 3 MG TABLET GT SCH (21:50)
[2023-07-22] VITALS (11 sets, daily range): BP systolic 101; BP diastolic 68; TEMP 98.1; O2SAT 95–98
[2023-07-23] VITALS (12 sets, daily range): BP systolic 97–120; BP diastolic 65–68; TEMP 97.4–99; O2SAT 95–99
[2023-07-23] MEDS: MELATONIN 5 MG PO SCH (20:41)
[2023-07-24] VITALS (13 sets, daily range): BP systolic 100–116; BP diastolic 64–67; TEMP 98.1–98.9; O2SAT 95–100
[2023-07-25] VITALS (11 sets, daily range): BP systolic 106–129; BP diastolic 61–69; TEMP 97.7–98.1; O2SAT 95–100
[2023-07-26] VITALS (14 sets, daily range): BP systolic 100–132; BP diastolic 66–79; TEMP 97.8–98.2; O2SAT 95–100
[2023-07-27] VITALS (14 sets, daily range): BP systolic 97–110; BP diastolic 61–69; TEMP 97.4–98.5; O2SAT 94–100
[2023-07-27 10:56] LABS: BASOPHILS % (AUTO) 0.4 % (0.0-2.0); EOSINOPHILS # (AUTO) 0.2 K/uL (0.0-0.7); HEMATOCRIT 31 % (39-51); HEMOGLOBIN 10.7 g/dL (13.5-17.5); LYMPHOCYTES # (AUTO) 0.6 K/uL (0.8-4.8); LYMPHOCYTES % (AUTO) 7.4 % (20.0-44.0); MEAN CORPUSCULAR HEMOGLOBIN 32 PG (26.0-33.0); MEAN CORPUSCULAR HGB CONC 34 g/dl (31.0-36.0); MEAN CORPUSCULAR VOLUME 94 fL (80-96); MONOCYTES # (AUTO) 0.7 K/uL (0.1-1.30); MONOCYTES % (AUTO) 8.7 % (2.0-12.0); NEUTROPHILS # (AUTO) 6.6 K/uL (1.8-8.9); NEUTROPHILS % (AUTO) 80.5 % (43.0-81.0); PLATELET COUNT (AUTO) 197 K/uL (150-450); RED BLOOD CELL COUNT(AUTO) 3.33 MIL/uL (4.5-6.0); RED CELL DISTRIBUTION WIDTH 16.7 % (11.5-15.0); WHITE BLOOD COUNT (AUTO) 8.1 K/uL (4.3-11.0)
[2023-07-27 11:06] LABS: CALCIUM, SERUM 11.8 mg/dL (8.5-10.1); POTASSIUM 3.5 mmol/L (3.5-5.1)
[2023-07-28] VITALS (12 sets, daily range): BP systolic 123–131; BP diastolic 68–89; TEMP 98.3; O2SAT 94–100
[2023-07-28] MEDS: IV NS 0.9% 1,000 ML IV SCH (11:30)
[2023-07-29] VITALS (13 sets, daily range): BP systolic 105–115; BP diastolic 71–80; TEMP 97.9–98.1; O2SAT 96–99
[2023-07-29 08:05] LABS: CALCIUM, SERUM 11.4 mg/dL (8.5-10.1); CREATININE 0.9 mg/dL (0.6-1.3); POTASSIUM 3.5 mmol/L (3.5-5.1)
[2023-07-30] VITALS (10 sets, daily range): BP systolic 121–139; BP diastolic 67–76; TEMP 98.1–98.6; O2SAT 95–99
[2023-07-31] VITALS (12 sets, daily range): BP systolic 98–108; BP diastolic 52–62; TEMP 97.9–98.2; O2SAT 95–100
[2023-08-01] VITALS (13 sets, daily range): BP systolic 115–124; BP diastolic 72–74; TEMP 97–98.2; O2SAT 96–99
[2023-08-01 08:10] LABS: CALCIUM, SERUM 10.7 mg/dL (8.5-10.1); CREATININE 0.8 mg/dL (0.6-1.3); POTASSIUM 3.3 mmol/L (3.5-5.1)
[2023-08-01] MEDS: POTASSIUM CHLORIDE 20 MEQ POWDER PACKET GT ONE (11:30)
[2023-08-02] VITALS (13 sets, daily range): BP systolic 111–113; BP diastolic 61–69; TEMP 97.5–97.7; O2SAT 97–99
[2023-08-02] MEDS ORDERED: CLOTRIMAZOLE/BETAMETASONE DIPROPIONATE 15 GM TUBE TP SCH (21:00)
[2023-08-02] MEDS: THERAHONEY GEL 1.5 OZ TUBE TP SCH (21:27)
[2023-08-03] VITALS (13 sets, daily range): BP systolic 116–127; BP diastolic 69–74; TEMP 98.1–98.3; O2SAT 93–99
[2023-08-04] VITALS (12 sets, daily range): BP systolic 119–131; BP diastolic 70–71; TEMP 97.9–98.2; O2SAT 94–99
[2023-08-05] VITALS (14 sets, daily range): BP systolic 108–126; BP diastolic 68–69; TEMP 97.9; O2SAT 95–99
[2023-08-06] VITALS (13 sets, daily range): BP systolic 106–111; BP diastolic 70–74; TEMP 97.9–98.6; O2SAT 94–99
[2023-08-07] VITALS (11 sets, daily range): BP systolic 107–112; BP diastolic 61–70; TEMP 97.7–98.2; O2SAT 94–99
[2023-08-08] VITALS (14 sets, daily range): BP systolic 113–114; BP diastolic 69–76; TEMP 97.9–99; O2SAT 96–100
[2023-08-08] MEDS: BACI/NEOM/POLY B OINT PKT 1 UDPKT PACKET TP SCH (21:27)
[2023-08-09] VITALS (12 sets, daily range): BP systolic 92–110; BP diastolic 58–68; TEMP 98.2–98.4; O2SAT 96–99
[2023-08-10] VITALS (12 sets, daily range): BP systolic 109–116; BP diastolic 70–84; TEMP 98.5–98.8; O2SAT 80–100
[2023-08-11] VITALS (14 sets, daily range): BP systolic 102–112; BP diastolic 60–70; TEMP 97.7–98.6; O2SAT 92–98
[2023-08-11] MEDS: LEVOTHYROXINE SODIUM 100 MCG TABLET PO SCH (07:56)
[2023-08-12] VITALS (14 sets, daily range): BP systolic 102–105; BP diastolic 71–75; TEMP 97.7–98.8; O2SAT 93–100
[2023-08-12] MEDS: HYDROCORTISONE 1% CREAM 28.35 GM TUBE TP SCH (20:19)
[2023-08-12] MEDS: CLOTRIMAZOLE/BETAMETASONE DIPROPIONATE 15 GM TUBE TP SCH (20:20)
[2023-08-12] MEDS: THERAHONEY GEL 1.5 OZ TUBE TP SCH (20:20)
[2023-08-13] VITALS (11 sets, daily range): BP systolic 101–109; BP diastolic 69–74; TEMP 97.7–98.8; O2SAT 95–99
[2023-08-13 13:18] LABS: BASOPHILS # (AUTO) 0.1 K/uL (0.0-0.2); BASOPHILS % (AUTO) 0.5 % (0.0-2.0); EOSINOPHILS # (AUTO) 0.2 K/uL (0.0-0.7); EOSINOPHILS % (AUTO) 1.7 % (0.0-6.0); HEMATOCRIT 35 % (39-51); HEMOGLOBIN 11.9 g/dL (13.5-17.5); LYMPHOCYTES # (AUTO) 0.6 K/uL (0.8-4.8); LYMPHOCYTES % (AUTO) 5.3 % (20.0-44.0); MEAN CORPUSCULAR HEMOGLOBIN 32 PG (26.0-33.0); MEAN CORPUSCULAR HGB CONC 34 g/dl (31.0-36.0); MEAN CORPUSCULAR VOLUME 95 fL (80-96); MONOCYTES # (AUTO) 0.9 K/uL (0.1-1.30); MONOCYTES % (AUTO) 7.9 % (2.0-12.0); NEUTROPHILS # (AUTO) 9.7 K/uL (1.8-8.9); NEUTROPHILS % (AUTO) 84.6 % (43.0-81.0); PLATELET COUNT (AUTO) 188 K/uL (150-450); RED BLOOD CELL COUNT(AUTO) 3.71 MIL/uL (4.5-6.0); RED CELL DISTRIBUTION WIDTH 15.3 % (11.5-15.0); WHITE BLOOD COUNT (AUTO) 11.4 K/uL (4.3-11.0)
[2023-08-13 13:41] LABS: ALANINE AMINOTRANSFERASE 29 U/L (12-78); ALBUMIN 3.2 g/dL (3.4-5.0); ALKALINE PHOSPHATASE 85 U/L (46-116); ASPARTATE AMINOTRANSFERASE 16 U/L (15-37); BILIRUBIN,TOTAL 0.5 mg/dL (0.2-1.0); CALCIUM, SERUM 11.7 mg/dL (8.5-10.1); CARBON DIOXIDE 29 mmol/L (21-32); CHLORIDE 100 mmol/L (98-107); GLUCOSE 141 mg/dL (74-106); POTASSIUM 3.6 mmol/L (3.5-5.1); SODIUM SERUM 137 mmol/L (136-145); TOTAL PROTEIN, SERUM 7.9 g/dL (6.4-8.2); UREA NITROGEN, BLOOD 72 mg/dL (7-18)
[2023-08-13 21:39] LABS: APPEARANCE,URINE SLIGHTLY CLOUDY (CLEAR); BILIRUBIN,URINE NEGATIVE (NEGATIVE); BLOOD, URINE 1+ Ery/uL (NEGATIVE); COLOR,URINE YELLOW (YELLOW); KETONES,URINE NEGATIVE (NEGATIVE); LEUKOCYTE ESTERASE ,URINE 2+ (NEGATIVE); NITRITE, URINE POSITIVE (NEGATIVE); PROTEIN,URINE TRACE mg/dl (NEGATIVE); UGLUCOSE NEGATIVE (NEGATIVE); UROBILINOGEN,URINE 0.2 EU/dL (0.2)
[2023-08-13 21:55] LABS: ADD URINE CULTURE YES; BACTERIA,URINE 2+ /HPF (None Seen); SQUAMOUS EPITHELIAL CELL,UR 0-2 /HPF (None Seen); WBC,URINE 21-50 /HPF (0-3)
[2023-08-14] VITALS (12 sets, daily range): BP systolic 100–138; BP diastolic 58–79; TEMP 97.6–99.1; O2SAT 94–100
[2023-08-14] MEDS: IV 1/2NS 1000 ML 1,000 ML IV SCH (12:25)
[2023-08-15] VITALS (10 sets, daily range): BP systolic 101–108; BP diastolic 61–79; TEMP 98–102.2; O2SAT 94–100
[2023-08-15] MEDS: ACETAMINOPHEN 650 MG/20 ML UDC- SA PATIENTS-PAIN ONLY GT PRN (14:00)
[2023-08-15 16:09] LABS: ABG BASE EXCESS 0.2 mmol/L; ABG OXYGEN SATURATION 98.7 % (92.0-98.5); ABG PCO2 41.3 mmHg (35.0-45.0); ABG PO2 134.8 mmHg (75.0-100.0); ABG TOTAL HEMOGLOBIN 16.2 G/dL (13.5-18.0); AaDO2 536.9 mmHg; MetHb 0.5 % (0.0-1.5); O2Hb 97.2 % (94.0-97.0); SITE, ABG Left Radial; VENT MODE, BG 15LPM AMBUBAG
[2023-08-15 17:03] LABS: ABG BASE EXCESS -0.5 mmol/L; ABG OXYGEN SATURATION 89.5 % (92.0-98.5); ABG PCO2 34.2 mmHg (35.0-45.0); ABG PH 7.446 (7.350-7.450); ABG PO2 57.4 mmHg (75.0-100.0); ABG TOTAL HEMOGLOBIN 12.2 G/dL (13.5-18.0); AaDO2 188.5 mmHg; COHb 0.3 % (0.5-1.5); MetHb 0.3 % (0.0-1.5); PEEP,BG 5 cm H2O; SITE, ABG Left Radial; VT, ABG 500 mL
[2023-08-15] MEDS: ACETAMINOPHEN 650 MG/20 ML UDC- SA PATIENTS-FEVER ONLY GT PRN (20:02)
[2023-08-16] MEDS ORDERED: ASCO-495 GT (09:14)
[2023-08-16] MEDS ORDERED: THERAHONEY TP (09:14)
[2023-08-16] MEDS ORDERED: FOLI0.8T23 GT (09:14)
[2023-08-16] MEDS ORDERED: LANS30CA56 GT (09:14)
[2023-08-16] MEDS ORDERED: ALBU2.5V38 IH ×2 (09:14)
[2023-08-16] MEDS ORDERED: NUTR1PAC14 GT (09:14)
[2023-08-16] MEDS ORDERED: AMLO10TA4 GT (09:14)
[2023-08-16] MEDS ORDERED: ATOR20TA GT (09:14)
[2023-08-16] MEDS ORDERED: NEPRO 1.8 GT (09:14)
[2023-08-16] MEDS ORDERED: HEPA50008 SQ (09:14)
[2023-08-16] MEDS ORDERED: CHLO473M5 MM (09:14)
[2023-08-16] MEDS ORDERED: LABE100T5 GT (09:14)
[2023-08-16] MEDS ORDERED: MODAFINIL GT (09:14)
[2023-08-16] MEDS ORDERED: HYDROGEN PEROXIDE TP (09:14)
[2023-08-16] MEDS ORDERED: ZINC220C6 GT (09:14)
[2023-08-16] MEDS ORDERED: HYDR453.3 TP (09:14)
[2023-08-16] MEDS ORDERED: LEVE100S GT (09:14)
[2023-08-16] MEDS ORDERED: ACET-868 GT ×2 (09:14→09:33)
[2023-08-16] MEDS ORDERED: LOPE2CAP GT (09:14)
[2023-08-16] MEDS ORDERED: INSU100V30 SQ (09:14)
[2023-08-16] MEDS ORDERED: CLOT15CR5 TP (09:14)
[2023-08-16] MEDS ORDERED: IPRA0.2S9 IH ×2 (09:14)
[2023-08-16] MEDS ORDERED: BISA10SU11 RC (09:14)
[2023-08-16] MEDS ORDERED: DEXT15DR6 EACHEYE (09:14)
[2023-08-16] MEDS ORDERED: [UNRECOGNIZED DRUG - CODE] IV (09:14)
[2023-08-16] MEDS ORDERED: NUT.237L67 GT (09:33)
[2023-08-16] MEDS ORDERED: LEVO100T GT (09:33)
[2023-08-16] MEDS ORDERED: PANT40SU2 GT (09:33)
[2023-08-16] MEDS ORDERED: FOLI0.8T2 GT (09:33)
[2023-08-16] MEDS ORDERED: NEOM28.37 TP (09:33)
[2023-08-16] MEDS ORDERED: POLY15DR40 EACHEYE (09:33)
[2023-08-16] MEDS ORDERED: MINE105O TP (09:33)
[2023-08-16] MEDS ORDERED: MELA5TAB GT (09:37)
== END 2023-08-15 17:00 | disposition short-term general hospital (02) | DRG 981 ==
LOC: SA 17:31 → UNDOLOA 08-15 22:11
PROVIDERS: ADMIT Internal Medicine; ATTEND Internal Medicine
PROC: 0QB10ZZ Excision of Sacrum, Open Approach (ICD-10-PCS; 2023-05-30)
PROC: 05HY33Z Insertion of Infusion Device into Upper Vein, Percutaneous Approach (ICD-10-PCS; principal; 2023-05-31)
PROC: 0QB10ZZ Excision of Sacrum, Open Approach (ICD-10-PCS; 2023-06-14)
PROC: 0QB10ZZ Excision of Sacrum, Open Approach (ICD-10-PCS; 2023-06-21)
PROC: 0QB10ZZ Excision of Sacrum, Open Approach (ICD-10-PCS; 2023-06-29)
PROC: 05HB33Z Insertion of Infusion Device into Right Basilic Vein, Percutaneous Approach (ICD-10-PCS; 2023-06-29)
PROC: 0QB10ZZ Excision of Sacrum, Open Approach (ICD-10-PCS; 2023-07-06)
PROC: 0KBN0ZZ Excision of Right Hip Muscle, Open Approach (ICD-10-PCS; 2023-07-13)
PROC: 0KBP0ZZ Excision of Left Hip Muscle, Open Approach (ICD-10-PCS; 2023-07-13)
PROC: 0KBN0ZZ Excision of Right Hip Muscle, Open Approach (ICD-10-PCS; 2023-07-19)
PROC: 0KBP0ZZ Excision of Left Hip Muscle, Open Approach (ICD-10-PCS; 2023-07-19)
PROC: 0QB10ZZ Excision of Sacrum, Open Approach (ICD-10-PCS; 2023-07-27)
PROC: 05HC33Z Insertion of Infusion Device into Left Basilic Vein, Percutaneous Approach (ICD-10-PCS; 2023-07-28)
PROC: 0QB10ZZ Excision of Sacrum, Open Approach (ICD-10-PCS; 2023-08-03)
PROC: 0QB10ZZ Excision of Sacrum, Open Approach (ICD-10-PCS; 2023-08-09)
DX: J96.11 Chronic respiratory failure with hypoxia (principal); L89.154 Pressure ulcer of sacral region, stage 4; C92.11 Chronic myeloid leukemia, BCR/ABL-positive, in remission; G93.1 Anoxic brain damage, not elsewhere classified; N17.9 Acute kidney failure, unspecified; G93.49 Other encephalopathy; E87.1 Hypo-osmolality and hyponatremia; M86.8X8 Other osteomyelitis, other site; I10 Essential (primary) hypertension; D64.9 Anemia, unspecified; D63.8 Anemia in other chronic diseases classified elsewhere; E11.22 Type 2 diabetes mellitus with diabetic chronic kidney disease; E86.9 Volume depletion, unspecified; I12.9 Hypertensive chronic kidney disease with stage 1 through stage 4 chronic kidney disease, or unspecified chronic kidney disease; N18.9 Chronic kidney disease, unspecified; R13.10 Dysphagia, unspecified; I69.191 Dysphagia following nontraumatic intracerebral hemorrhage; I69.198 Other sequelae of nontraumatic intracerebral hemorrhage; I69.120 Aphasia following nontraumatic intracerebral hemorrhage; Z74.01 Bed confinement status; Z86.718 Personal history of other venous thrombosis and embolism; M89.8X9 Other specified disorders of bone, unspecified site; Z93.1 Gastrostomy status; Z93.0 Tracheostomy status; Z95.828 Presence of other vascular implants and grafts; E83.52 Hypercalcemia; E87.6 Hypokalemia; E11.69 Type 2 diabetes mellitus with other specified complication; R26.9 Unspecified abnormalities of gait and mobility
CPT/HCPCS: 31720; 36410; 36415; 36600; 71045-TC; 74230-TC; 80048-TC; 80053-TC; 80202-TC; 81001; 82040-TC; 82140-TC; 82306; 82310-TC; 82962-TC; 83735-TC; 83970; 84100-TC; 84439-TC; 84443-TC; 84481; 85025-TC; 85027-TC; 86580-TC; 87040-TC; 87081-TC; 87086-TC; 88305-TC; 88312-TC; 90732; 92507-TC; 92521; 92526; 92611-TC; 93970-TC; 94003-TC; 94640-TC; 94664-TC; 94760-TC; 94761-TC; 94762-TC; 94799-TC; 97110-TC; 97112-TC; 97530-TC; 97535-TC; A4223; A4349; A4623; A6253; A7526; J0885; J1644; J1815; J1953; J2185; J3370; J3475; J3490; J7030; J7060; L8501

== ENCOUNTER 2023-08-15 20:33 | Inpatient (IN) | payer MEDICARE, OTHER ==
[~2023-08-15] VITALS: Ht 165.1 cm; Wt 55.3 kg
[2023-08-15] MEDS ORDERED: PIPERACI/TAZO 3.375GM/D5W 50ML PB IV ONE (21:07)
[2023-08-15 21:10] LABS: APPEARANCE,URINE CLOUDY (CLEAR); BILIRUBIN,URINE NEGATIVE (NEGATIVE); BLOOD, URINE 3+ Ery/uL (NEGATIVE); COLOR,URINE YELLOW (YELLOW); KETONES,URINE NEGATIVE (NEGATIVE); LEUKOCYTE ESTERASE ,URINE 3+ (NEGATIVE); NITRITE, URINE NEGATIVE (NEGATIVE); PH,URINE 5.5 (5.0-8.0); PROTEIN,URINE 2+ mg/dl (NEGATIVE); UGLUCOSE NEGATIVE (NEGATIVE); UROBILINOGEN,URINE 0.2 EU/dL (0.2)
[2023-08-15] MEDS: PIPERACILLIN /TAZOBACTAM 3.375 G in IV D5W 50 ML IV ONE (21:10)
[2023-08-15] MEDS: IV NS 0.9% 1,000 ML BAG IV ONE (21:10)
[2023-08-15 21:39] LABS: ALANINE AMINOTRANSFERASE 29 U/L (12-78); ALBUMIN 2.7 g/dL (3.4-5.0); ALKALINE PHOSPHATASE 75 U/L (46-116); ASPARTATE AMINOTRANSFERASE 20 U/L (15-37); BILIRUBIN,DIRECT 0.2 mg/dL (0.0-0.2); BILIRUBIN,TOTAL 0.9 mg/dL (0.2-1.0); CALCIUM, SERUM 10.7 mg/dL (8.5-10.1); CARBON DIOXIDE 27 mmol/L (21-32); CHLORIDE 94 mmol/L (98-107); CREATININE 1.3 mg/dL (0.6-1.3); GLUCOSE 135 mg/dL (74-106); POTASSIUM 4.2 mmol/L (3.5-5.1); SODIUM SERUM 130 mmol/L (136-145); TOTAL PROTEIN, SERUM 7.5 g/dL (6.4-8.2)
[2023-08-15 21:43] LABS: RBC,URINE TOO NUMEROUS TO COUN /HPF (0-2); WBC,URINE TOO NUMEROUS TO COUN /HPF (0-3)
[2023-08-15 21:44] LABS: ADD URINE CULTURE YES; BACTERIA,URINE 2+ /HPF (None Seen); SQUAMOUS EPITHELIAL CELL,UR Few /HPF (None Seen)
[2023-08-15 21:48] LABS: UREA NITROGEN, BLOOD 112 mg/dL (7-18)
[2023-08-15 21:54] LABS: INR 1.08 (0.91-1.10); PARTIAL THROMBOPLASTIN TIME 29.7 SEC (24.3-34.3); PROTHROMBIN TIME 11.4 SECS (9.2-11.1)
[2023-08-15 22:09] LABS: LACTIC ACID 2.2 mmol/L (0.4-2.0)
[2023-08-15 22:31] LABS: BASOPHILS % (AUTO) 0.4 % (0.0-2.0); EOSINOPHILS # (AUTO) 0.1 K/uL (0.0-0.7); EOSINOPHILS % (AUTO) 0.9 % (0.0-6.0); HEMATOCRIT 33 % (39-51); HEMOGLOBIN 11.5 g/dL (13.5-17.5); LYMPHOCYTES # (AUTO) 0.2 K/uL (0.8-4.8); LYMPHOCYTES % (AUTO) 2.4 % (20.0-44.0); MEAN CORPUSCULAR HEMOGLOBIN 33 PG (26.0-33.0); MEAN CORPUSCULAR HGB CONC 35 g/dl (31.0-36.0); MEAN CORPUSCULAR VOLUME 95 fL (80-96); MONOCYTES # (AUTO) 0.5 K/uL (0.1-1.30); MONOCYTES % (AUTO) 6.9 % (2.0-12.0); NEUTROPHILS # (AUTO) 6.5 K/uL (1.8-8.9); NEUTROPHILS % (AUTO) 89.4 % (43.0-81.0); PLATELET COUNT (AUTO) 183 K/uL (150-450); RED BLOOD CELL COUNT(AUTO) 3.49 MIL/uL (4.5-6.0); RED CELL DISTRIBUTION WIDTH 14.9 % (11.5-15.0); WHITE BLOOD COUNT (AUTO) 7.3 K/uL (4.3-11.0)
[2023-08-15] MEDS ORDERED: Z GUARD REMEDY 4 OZ OINT TP PRN (23:00)
[2023-08-15] MEDS ORDERED: ACETAMINOPHEN 325 MG TABLET PO PRN (23:00)
[2023-08-15] MEDS ORDERED: NOREPINEPHRINE 8 MG in IV D5W 242 ML IV PRN (23:00)
[2023-08-16] VITALS (105 sets, daily range): BP systolic 53–183; BP diastolic 39–128; TEMP 97.7–101.4; O2SAT 93–100
[2023-08-16] MEDS: IV NS 0.9% 1,000 ML IV PRN (01:25)
[2023-08-16] MEDS: PIPERACI/TAZO 3.375GM/D5W 50ML PB IV ONE (03:26)
[2023-08-16] MEDS: PIPERACILLIN /TAZOBACTAM 3.375 G in IV D5W 50 ML IV ONE (03:27)
[2023-08-16 04:47] LABS: BASOPHILS % (AUTO) 0.3 % (0.0-2.0); EOSINOPHILS # (AUTO) 0.1 K/uL (0.0-0.7); EOSINOPHILS % (AUTO) 0.8 % (0.0-6.0); HEMATOCRIT 29 % (39-51); HEMOGLOBIN 9.7 g/dL (13.5-17.5); LYMPHOCYTES # (AUTO) 0.3 K/uL (0.8-4.8); LYMPHOCYTES % (AUTO) 3.8 % (20.0-44.0); MEAN CORPUSCULAR HEMOGLOBIN 32 PG (26.0-33.0); MEAN CORPUSCULAR HGB CONC 34 g/dl (31.0-36.0); MEAN CORPUSCULAR VOLUME 95 fL (80-96); MONOCYTES # (AUTO) 0.8 K/uL (0.1-1.30); NEUTROPHILS # (AUTO) 7.2 K/uL (1.8-8.9); NEUTROPHILS % (AUTO) 85.1 % (43.0-81.0); PLATELET COUNT (AUTO) 141 K/uL (150-450); RED CELL DISTRIBUTION WIDTH 14.8 % (11.5-15.0); WHITE BLOOD COUNT (AUTO) 8.5 K/uL (4.3-11.0)
[2023-08-16 05:07] LABS: CALCIUM, SERUM 9.9 mg/dL (8.5-10.1); CREATININE 1.2 mg/dL (0.6-1.3); MAGNESIUM 1.9 mg/dL (1.8-2.4); PHOSPHORUS 3.3 mg/dL (2.5-4.9); POTASSIUM 3.6 mmol/L (3.5-5.1)
[2023-08-16] MEDS: NOREPINEPHRINE 8 MG in IV D5W 242 ML IV PRN (07:14)
[2023-08-16] MEDS: THERAHONEY GEL 1.5 OZ TUBE TP SCH ×2 (09:00→13:57)
[2023-08-16] MEDS ORDERED: HYDR453.3 TP (09:14)
[2023-08-16] MEDS ORDERED: FOLI0.8T23 GT (09:14)
[2023-08-16] MEDS ORDERED: BISA10SU11 RC (09:14)
[2023-08-16] MEDS ORDERED: LOPE2CAP GT (09:14)
[2023-08-16] MEDS ORDERED: ATOR20TA GT (09:14)
[2023-08-16] MEDS ORDERED: IPRA0.2S9 IH ×2 (09:14)
[2023-08-16] MEDS ORDERED: HEPA50008 SQ (09:14)
[2023-08-16] MEDS ORDERED: AMLO10TA4 GT (09:14)
[2023-08-16] MEDS ORDERED: ALBU2.5V38 IH ×2 (09:14)
[2023-08-16] MEDS ORDERED: NEPRO 1.8 GT (09:14)
[2023-08-16] MEDS ORDERED: ASCO-495 GT (09:14)
[2023-08-16] MEDS ORDERED: MODAFINIL GT (09:14)
[2023-08-16] MEDS ORDERED: ZINC220C6 GT (09:14)
[2023-08-16] MEDS ORDERED: HYDROGEN PEROXIDE TP (09:14)
[2023-08-16] MEDS ORDERED: INSU100V30 SQ (09:14)
[2023-08-16] MEDS ORDERED: LEVE100S GT (09:14)
[2023-08-16] MEDS ORDERED: THERAHONEY TP (09:14)
[2023-08-16] MEDS ORDERED: LANS30CA56 GT (09:14)
[2023-08-16] MEDS ORDERED: [UNRECOGNIZED DRUG - CODE] IV (09:14)
[2023-08-16] MEDS ORDERED: NUTR1PAC14 GT (09:14)
[2023-08-16] MEDS ORDERED: CHLO473M5 MM (09:14)
[2023-08-16] MEDS ORDERED: LABE100T5 GT (09:14)
[2023-08-16] MEDS ORDERED: DEXT15DR6 EACHEYE (09:14)
[2023-08-16] MEDS ORDERED: CLOT15CR5 TP (09:14)
[2023-08-16] MEDS ORDERED: ACET-868 GT ×2 (09:14→09:33)
[2023-08-16] MEDS ORDERED: MINE105O TP (09:33)
[2023-08-16] MEDS ORDERED: NUT.237L67 GT (09:33)
[2023-08-16] MEDS ORDERED: LEVO100T GT (09:33)
[2023-08-16] MEDS ORDERED: POLY15DR40 EACHEYE (09:33)
[2023-08-16] MEDS ORDERED: PANT40SU2 GT (09:33)
[2023-08-16] MEDS ORDERED: NEOM28.37 TP (09:33)
[2023-08-16] MEDS ORDERED: FOLI0.8T2 GT (09:33)
[2023-08-16] MEDS ORDERED: MELA5TAB GT (09:37)
[2023-08-16] MEDS ORDERED: NEPRO 1,000 ML BOTTLE GT PRN (10:00)
[2023-08-16 10:05] LABS: ABG BASE EXCESS -3.3 mmol/L; ABG OXYGEN SATURATION 97.8 % (92.0-98.5); ABG PCO2 31.1 mmHg (35.0-45.0); ABG PH 7.429 (7.350-7.450); ABG PO2 116.4 mmHg (75.0-100.0); ABG TOTAL HEMOGLOBIN 11.4 G/dL (13.5-18.0); AaDO2 277.2 mmHg; COHb 0.3 % (0.5-1.5); MetHb 0.3 % (0.0-1.5); O2Hb 97.2 % (94.0-97.0); PEEP,BG 5 cm H2O; SITE, ABG Left Radial; VT, ABG 550 mL
[2023-08-16] MEDS: PIPERACILLIN /TAZOBACTAM 3.375 G in IV D5W 100 ML IV SCH (10:31)
[2023-08-16 10:45] LABS: APPEARANCE,URINE CLOUDY (CLEAR); BILIRUBIN,URINE NEGATIVE (NEGATIVE); BLOOD, URINE 3+ Ery/uL (NEGATIVE); COLOR,URINE YELLOW (YELLOW); KETONES,URINE NEGATIVE (NEGATIVE); LEUKOCYTE ESTERASE ,URINE 2+ (NEGATIVE); NITRITE, URINE NEGATIVE (NEGATIVE); PH,URINE 6.5 (5.0-8.0); PROTEIN,URINE TRACE mg/dl (NEGATIVE); UGLUCOSE NEGATIVE (NEGATIVE); UROBILINOGEN,URINE 0.2 EU/dL (0.2)
[2023-08-16 10:46] LABS: ADD URINE CULTURE YES; BACTERIA,URINE Moderate /HPF (None Seen); RBC,URINE 21-50 /HPF (0-2); SQUAMOUS EPITHELIAL CELL,UR Few /HPF (None Seen)
[2023-08-16 10:56] LABS: CREATININE, URINE 16.6 MG/DL (30.0-125.0); URINE TOTAL PROTEIN 44.1 mg/dL (0-11.9)
[2023-08-16 11:18] LABS: EOSINOPHIL,URINE None Seen
[2023-08-16] MEDS: NEPRO 1,000 ML BOTTLE GT PRN (11:55)
[2023-08-16] MEDS ORDERED: PHARMACY TO CHANGE PO MEDS TO GT/NG XX PRN (12:30)
[2023-08-16] MEDS: ACETAMINOPHEN 650 MG/20.3 ML UDC GT PRN (12:45)
[2023-08-16] MEDS: ARGININE/GLUTAMINE/CALCIUM BMB 1 EACH POWD.PACK GT SCH (17:27)
[2023-08-16] MEDS: PROSOURCE / PROSTAT (PYXIS) 30 ML UDC PO SCH (18:08)
[2023-08-16] MEDS ORDERED: MEROPENEM 1 G in IV NS 0.9% 100 ML IV SCH (21:00)
[2023-08-16] MEDS: VANCOMYCIN HCL 1.25 GM in IV D5W 250 ML IV ONE (21:45)
[2023-08-16] MEDS: MEROPENEM 1 G in IV NS 0.9% 100 ML IV SCH (21:45)
[2023-08-17] VITALS (81 sets, daily range): BP systolic 77–135; BP diastolic 44–104; TEMP 98.2–101.6; O2SAT 91–100
[2023-08-17 04:18] LABS: BASOPHILS % (AUTO) 0.4 % (0.0-2.0); EOSINOPHILS # (AUTO) 0.3 K/uL (0.0-0.7); EOSINOPHILS % (AUTO) 2.7 % (0.0-6.0); HEMATOCRIT 29 % (39-51); HEMOGLOBIN 9.7 g/dL (13.5-17.5); LYMPHOCYTES # (AUTO) 0.5 K/uL (0.8-4.8); LYMPHOCYTES % (AUTO) 4.6 % (20.0-44.0); MEAN CORPUSCULAR HEMOGLOBIN 33 PG (26.0-33.0); MEAN CORPUSCULAR HGB CONC 34 g/dl (31.0-36.0); MEAN CORPUSCULAR VOLUME 97 fL (80-96); MONOCYTES # (AUTO) 1.1 K/uL (0.1-1.30); MONOCYTES % (AUTO) 10.9 % (2.0-12.0); NEUTROPHILS # (AUTO) 8.4 K/uL (1.8-8.9); NEUTROPHILS % (AUTO) 81.4 % (43.0-81.0); PLATELET COUNT (AUTO) 154 K/uL (150-450); RED BLOOD CELL COUNT(AUTO) 2.94 MIL/uL (4.5-6.0); RED CELL DISTRIBUTION WIDTH 14.7 % (11.5-15.0); WHITE BLOOD COUNT (AUTO) 10.3 K/uL (4.3-11.0)
[2023-08-17 04:37] LABS: ALBUMIN 2.4 g/dL (3.4-5.0); BILIRUBIN,TOTAL 0.7 mg/dL (0.2-1.0); CALCIUM, SERUM 9.7 mg/dL (8.5-10.1); CREATININE 1.1 mg/dL (0.6-1.3); MAGNESIUM 2.1 mg/dL (1.8-2.4); PHOSPHORUS 2.4 mg/dL (2.5-4.9); POTASSIUM 3.1 mmol/L (3.5-5.1); TOTAL PROTEIN, SERUM 7.1 g/dL (6.4-8.2)
[2023-08-17] MEDS ORDERED: MEROPENEM 500 MG in IV NS 0.9% 50 ML IV SCH (05:00)
[2023-08-17 05:39] LABS: ABG BASE EXCESS 0.5 mmol/L; ABG OXYGEN SATURATION 95.4 % (92.0-98.5); ABG PCO2 32.6 mmHg (35.0-45.0); ABG PH 7.477 (7.350-7.450); ABG PO2 74.9 mmHg (75.0-100.0); ABG TOTAL HEMOGLOBIN 10.7 G/dL (13.5-18.0); AaDO2 244.9 mmHg; COHb 0.3 % (0.5-1.5); MetHb 0.1 % (0.0-1.5); PEEP,BG 5 cm H2O; SITE, ABG Right Radial; VT, ABG 550 mL
[2023-08-17] MEDS: POTASSIUM CHLORIDE 20 MEQ POWDER PACKET GT ONE (09:27)
[2023-08-17] MEDS ORDERED: VANCOMYCIN 750 MG in IV D5W 250 ML IV SCH (10:00)
[2023-08-17] MEDS: NEUTRA PHOS 1 POWD.PACKET PO ONE (16:12)
[2023-08-17] MEDS: VANCOMYCIN 1 GM in IV D5W 250ml IV SCH (22:10)
[2023-08-18] VITALS (32 sets, daily range): BP systolic 81–151; BP diastolic 55–88; TEMP 97.6–98; O2SAT 96–100
[2023-08-18 04:55] LABS: BASOPHILS % (AUTO) 0.3 % (0.0-2.0); EOSINOPHILS # (AUTO) 0.3 K/uL (0.0-0.7); EOSINOPHILS % (AUTO) 3.8 % (0.0-6.0); HEMATOCRIT 27 % (39-51); LYMPHOCYTES # (AUTO) 0.5 K/uL (0.8-4.8); LYMPHOCYTES % (AUTO) 5.3 % (20.0-44.0); MEAN CORPUSCULAR HEMOGLOBIN 33 PG (26.0-33.0); MEAN CORPUSCULAR HGB CONC 33 g/dl (31.0-36.0); MEAN CORPUSCULAR VOLUME 98 fL (80-96); MONOCYTES # (AUTO) 0.8 K/uL (0.1-1.30); MONOCYTES % (AUTO) 9.9 % (2.0-12.0); NEUTROPHILS # (AUTO) 6.8 K/uL (1.8-8.9); NEUTROPHILS % (AUTO) 80.7 % (43.0-81.0); PLATELET COUNT (AUTO) 150 K/uL (150-450); RED BLOOD CELL COUNT(AUTO) 2.77 MIL/uL (4.5-6.0); WHITE BLOOD COUNT (AUTO) 8.5 K/uL (4.3-11.0)
[2023-08-18 05:35] LABS: ALBUMIN 2.1 g/dL (3.4-5.0); BILIRUBIN,TOTAL 0.3 mg/dL (0.2-1.0); CALCIUM, SERUM 9.4 mg/dL (8.5-10.1); CREATININE 0.9 mg/dL (0.6-1.3); PHOSPHORUS 2.5 mg/dL (2.5-4.9); POTASSIUM 3.4 mmol/L (3.5-5.1); TOTAL PROTEIN, SERUM 6.7 g/dL (6.4-8.2)
[2023-08-18 08:11] LABS: PTH, INTACT 16 pg/mL (15-65)
[2023-08-18] MEDS: ONDANSETRON HCL/PF 4 MG/2 ML VIAL IVP PRN (11:27)
[2023-08-18] MEDS: POTASSIUM CHLORIDE 20 MEQ POWDER PACKET GT SCH (11:27)
[2023-08-18] MEDS ORDERED: METOCLOPRAMIDE HCL 10 MG/2 ML VIAL IV SCH (17:30)
[2023-08-18] MEDS ORDERED: POLYETHYLENE GLYCOL 3350 17 GM POWD.PACK PO PRN (17:30)
[2023-08-18] MEDS: DOCUSATE SODIUM 100 MG CAPSULE PO SCH (17:46)
[2023-08-18] MEDS: METOCLOPRAMIDE HCL 10 MG/2 ML VIAL IV SCH (17:47)
[2023-08-18] MEDS ORDERED: VANCOMYCIN 1 GM in IV D5W 250ml IV SCH (21:00)
[2023-08-18] MEDS: VANCOMYCIN 1.25 GM in IV D5W 250 ML IV SCH (21:03)
[2023-08-18] MEDS: IV NS 0.9% 250 ML IV PRN (21:33)
[2023-08-19] VITALS (10 sets, daily range): BP systolic 112–138; BP diastolic 55–75; TEMP 98.2–99.2; O2SAT 96–100
[2023-08-19 09:51] LABS: ALANINE AMINOTRANSFERASE 23 U/L (12-78); ALKALINE PHOSPHATASE 45 U/L (46-116); ASPARTATE AMINOTRANSFERASE 16 U/L (15-37); BILIRUBIN,TOTAL 0.3 mg/dL (0.2-1.0); CALCIUM, SERUM 7.2 mg/dL (8.5-10.1); CARBON DIOXIDE 19 mmol/L (21-32); CHLORIDE 118 mmol/L (98-107); CREATININE 0.5 mg/dL (0.6-1.3); GLUCOSE 84 mg/dL (74-106); MAGNESIUM 1.4 mg/dL (1.8-2.4); SODIUM SERUM 146 mmol/L (136-145); TOTAL PROTEIN, SERUM 4.6 g/dL (6.4-8.2); UREA NITROGEN, BLOOD 24 mg/dL (7-18)
[2023-08-19 09:56] LABS: POTASSIUM 2.6 mmol/L (3.5-5.1)
[2023-08-19 09:57] LABS: ALBUMIN 1.4 g/dL (3.4-5.0)
[2023-08-19 10:40] LABS: BASOPHILS % (AUTO) 0.2 % (0.0-2.0); EOSINOPHILS # (AUTO) 0.3 K/uL (0.0-0.7); HEMATOCRIT 25 % (39-51); HEMOGLOBIN 8.6 g/dL (13.5-17.5); LYMPHOCYTES # (AUTO) 0.6 K/uL (0.8-4.8); LYMPHOCYTES % (AUTO) 8.7 % (20.0-44.0); MEAN CORPUSCULAR HEMOGLOBIN 33 PG (26.0-33.0); MEAN CORPUSCULAR HGB CONC 34 g/dl (31.0-36.0); MEAN CORPUSCULAR VOLUME 97 fL (80-96); MONOCYTES # (AUTO) 0.6 K/uL (0.1-1.30); MONOCYTES % (AUTO) 9.8 % (2.0-12.0); NEUTROPHILS # (AUTO) 4.9 K/uL (1.8-8.9); NEUTROPHILS % (AUTO) 76.3 % (43.0-81.0); PLATELET COUNT (AUTO) 141 K/uL (150-450); RED BLOOD CELL COUNT(AUTO) 2.62 MIL/uL (4.5-6.0); RED CELL DISTRIBUTION WIDTH 14.4 % (11.5-15.0); WHITE BLOOD COUNT (AUTO) 6.4 K/uL (4.3-11.0)
[2023-08-19] MEDS: NEUTRA PHOS 1 POWD.PACKET GT ONE (10:55)
[2023-08-19] MEDS: POTASSIUM CL. PREMIX PERIPHER. 50 ML IV SCH (10:56)
[2023-08-19] MEDS: Magnesium 1GM/D5W 100ML PREMIX 100 ML IV SCH (11:03)
[2023-08-19] MEDS: IV NS 0.9% 1,000 ML IV PRN (17:53)
[2023-08-20] VITALS (7 sets, daily range): BP systolic 123–142; BP diastolic 64–82; TEMP 98.9–99.2; O2SAT 98–100
[2023-08-20 06:10] LABS: CALCIUM, SERUM 9.5 mg/dL (8.5-10.1); CREATININE 0.7 mg/dL (0.6-1.3); MAGNESIUM 2.4 mg/dL (1.8-2.4); PHOSPHORUS 3.5 mg/dL (2.5-4.9); POTASSIUM 3.5 mmol/L (3.5-5.1)
[2023-08-20 09:07] LABS: *SPE A/G RATIO 0.7 (0.7-1.7); *SPE ALBUMIN 2.4 g/dL (2.9-4.4); *SPE ALPHA-1-GLOBULIN 0.5 g/dL (0.0-0.4); *SPE ALPHA-2-GLOBULIN 1.1 g/dL (0.4-1.0); *SPE GLOBULIN, TOTAL 3.6 g/dL (2.2-3.9); *SPE M-SPIKE Not Observed g/dL (Not Observed)
[2023-08-20] MEDS ORDERED: POLYETHYLENE GLYCOL 3350 17 GM POWD.PACK GT PRN (10:53)
[2023-08-20] MEDS: DOCUSATE SODIUM LIQ 100 MG/10 ML UDC GT SCH (16:30)
[2023-08-20] MEDS: PROSOURCE / PROSTAT (PYXIS) 30 ML UDC GT SCH (16:31)
[2023-08-21] VITALS: BP_SYST 129; BP_SYST 69; BP_DIAS 68; BP_DIAS 69; TEMP 98.9; O2SAT 100
[2023-08-21 04:00] VITALS: BP 120/56; TEMP 98.8; O2SAT 100
[2023-08-21 07:01] LABS: BASOPHILS % (AUTO) 0.4 % (0.0-2.0); EOSINOPHILS # (AUTO) 0.2 K/uL (0.0-0.7); EOSINOPHILS % (AUTO) 3.2 % (0.0-6.0); HEMATOCRIT 25 % (39-51); HEMOGLOBIN 8.7 g/dL (13.5-17.5); LYMPHOCYTES # (AUTO) 0.6 K/uL (0.8-4.8); LYMPHOCYTES % (AUTO) 8.3 % (20.0-44.0); MEAN CORPUSCULAR HEMOGLOBIN 33 PG (26.0-33.0); MEAN CORPUSCULAR HGB CONC 35 g/dl (31.0-36.0); MEAN CORPUSCULAR VOLUME 96 fL (80-96); MONOCYTES # (AUTO) 0.6 K/uL (0.1-1.30); NEUTROPHILS # (AUTO) 5.5 K/uL (1.8-8.9); NEUTROPHILS % (AUTO) 80.1 % (43.0-81.0); PLATELET COUNT (AUTO) 158 K/uL (150-450); RED CELL DISTRIBUTION WIDTH 14.4 % (11.5-15.0); WHITE BLOOD COUNT (AUTO) 6.9 K/uL (4.3-11.0)
[2023-08-21 07:28] LABS: ALANINE AMINOTRANSFERASE 32 U/L (12-78); ALBUMIN 2.1 g/dL (3.4-5.0); ALKALINE PHOSPHATASE 61 U/L (46-116); ASPARTATE AMINOTRANSFERASE 17 U/L (15-37); BILIRUBIN,TOTAL 0.3 mg/dL (0.2-1.0); CALCIUM, SERUM 8.9 mg/dL (8.5-10.1); CARBON DIOXIDE 23 mmol/L (21-32); CHLORIDE 107 mmol/L (98-107); CREATININE 0.7 mg/dL (0.6-1.3); GLUCOSE 105 mg/dL (74-106); MAGNESIUM 2.3 mg/dL (1.8-2.4); PHOSPHORUS 3.7 mg/dL (2.5-4.9); POTASSIUM 3.5 mmol/L (3.5-5.1); SODIUM SERUM 139 mmol/L (136-145); TOTAL PROTEIN, SERUM 6.2 g/dL (6.4-8.2); UREA NITROGEN, BLOOD 22 mg/dL (7-18)
[2023-08-21 08:00] VITALS: BP 127/66; TEMP 98; O2SAT 98
[2023-08-21] MEDS: NEPRO 1,000 ML BOTTLE GT PRN (08:56)
[2023-08-21 09:48] LABS: ABG BASE EXCESS -1.8 mmol/L; ABG OXYGEN SATURATION 96.4 % (92.0-98.5); ABG PCO2 29.3 mmHg (35.0-45.0); ABG PH 7.475 (7.350-7.450); ABG TOTAL HEMOGLOBIN 9.6 G/dL (13.5-18.0); AaDO2 156.5 mmHg; COHb 0.2 % (0.5-1.5); MetHb 0.3 % (0.0-1.5); O2Hb 95.9 % (94.0-97.0); SITE, ABG Other; VENT MODE, BG PS 15
[2023-08-21 12:00] VITALS: BP 99/72; TEMP 98; O2SAT 100
[2023-08-21 16:00] VITALS: BP 111/65; TEMP 98.4; O2SAT 100
[2023-08-21 20:00] VITALS: BP 121/65; TEMP 98.4; O2SAT 100
[2023-08-22] VITALS (7 sets, daily range): BP systolic 108–129; BP diastolic 60–74; TEMP 98.8–98.9; O2SAT 96–100
[2023-08-22 07:10] LABS: BASOPHILS % (AUTO) 0.5 % (0.0-2.0); EOSINOPHILS # (AUTO) 0.2 K/uL (0.0-0.7); EOSINOPHILS % (AUTO) 2.4 % (0.0-6.0); HEMATOCRIT 27 % (39-51); HEMOGLOBIN 9.3 g/dL (13.5-17.5); LYMPHOCYTES # (AUTO) 0.7 K/uL (0.8-4.8); LYMPHOCYTES % (AUTO) 7.6 % (20.0-44.0); MEAN CORPUSCULAR HEMOGLOBIN 33 PG (26.0-33.0); MEAN CORPUSCULAR HGB CONC 34 g/dl (31.0-36.0); MEAN CORPUSCULAR VOLUME 96 fL (80-96); MONOCYTES # (AUTO) 0.5 K/uL (0.1-1.30); MONOCYTES % (AUTO) 5.5 % (2.0-12.0); NEUTROPHILS # (AUTO) 7.7 K/uL (1.8-8.9); PLATELET COUNT (AUTO) 202 K/uL (150-450); RED BLOOD CELL COUNT(AUTO) 2.85 MIL/uL (4.5-6.0); RED CELL DISTRIBUTION WIDTH 14.2 % (11.5-15.0); WHITE BLOOD COUNT (AUTO) 9.1 K/uL (4.3-11.0)
[2023-08-22 07:42] LABS: CALCIUM, SERUM 9.1 mg/dL (8.5-10.1); CREATININE 0.7 mg/dL (0.6-1.3); MAGNESIUM 2.1 mg/dL (1.8-2.4); PHOSPHORUS 4.1 mg/dL (2.5-4.9); POTASSIUM 3.6 mmol/L (3.5-5.1)
[2023-08-22 13:09] LABS: ABG BASE EXCESS 1.5 mmol/L; ABG OXYGEN SATURATION 96.3 % (92.0-98.5); ABG PCO2 33.5 mmHg (35.0-45.0); ABG PH 7.483 (7.350-7.450); ABG PO2 88.5 mmHg (75.0-100.0); ABG TOTAL HEMOGLOBIN 11.6 G/dL (13.5-18.0); AaDO2 158.2 mmHg; COHb 0.3 % (0.5-1.5); MetHb 0.2 % (0.0-1.5); O2Hb 95.8 % (94.0-97.0); SITE, ABG Left Radial; VENT MODE, BG C/A 5L 40%
[2023-08-22] MEDS: CLOTRIMAZOLE/BETAMETASONE DIPROPIONATE 15 GM TUBE TP SCH (13:43)
== END 2023-08-22 17:25 | DRG 853 ==
LOC: ER 20:48 → ICU 23:15 → TELE1 08-19 02:47
PROVIDERS: ADMIT Nurse Practitioner Acute Care; ATTEND Nurse Practitioner Family
PROC: 5A1955Z Respiratory Ventilation, Greater than 96 Consecutive Hours (ICD-10-PCS; principal; 2023-08-15)
PROC: 0QB10ZZ Excision of Sacrum, Open Approach (ICD-10-PCS; 2023-08-18)
PROC: 0QB10ZZ Excision of Sacrum, Open Approach (ICD-10-PCS; 2023-08-22)
DX: A41.9 Sepsis, unspecified organism (principal); G93.41 Metabolic encephalopathy; I21.A1 Myocardial infarction type 2; L89.154 Pressure ulcer of sacral region, stage 4; J96.21 Acute and chronic respiratory failure with hypoxia; R65.21 Severe sepsis with septic shock; J69.0 Pneumonitis due to inhalation of food and vomit; E44.0 Moderate protein-calorie malnutrition; Z99.11 Dependence on respirator [ventilator] status; N39.0 Urinary tract infection, site not specified; G93.1 Anoxic brain damage, not elsewhere classified; M46.28 Osteomyelitis of vertebra, sacral and sacrococcygeal region; E87.1 Hypo-osmolality and hyponatremia; C92.11 Chronic myeloid leukemia, BCR/ABL-positive, in remission; R47.01 Aphasia; K56.7 Ileus, unspecified; N17.9 Acute kidney failure, unspecified; Z86.73 Personal history of transient ischemic attack (TIA), and cerebral infarction without residual deficits; Z66 Do not resuscitate; Z93.0 Tracheostomy status; Z93.1 Gastrostomy status; R13.10 Dysphagia, unspecified; Z86.718 Personal history of other venous thrombosis and embolism; Z95.828 Presence of other vascular implants and grafts; N18.9 Chronic kidney disease, unspecified; I12.9 Hypertensive chronic kidney disease with stage 1 through stage 4 chronic kidney disease, or unspecified chronic kidney disease; Z98.890 Other specified postprocedural states; Z88.8 Allergy status to other drugs, medicaments and biological substances; Z79.899 Other long term (current) drug therapy; D63.1 Anemia in chronic kidney disease; E86.0 Dehydration; R79.89 Other specified abnormal findings of blood chemistry; E83.52 Hypercalcemia; E03.9 Hypothyroidism, unspecified; E88.09 Other disorders of plasma-protein metabolism, not elsewhere classified; Z79.890 Hormone replacement therapy; Z79.51 Long term (current) use of inhaled steroids; Z79.01 Long term (current) use of anticoagulants; E11.22 Type 2 diabetes mellitus with diabetic chronic kidney disease; B96.20 Unspecified Escherichia coli [E. coli] as the cause of diseases classified elsewhere; K59.00 Constipation, unspecified
CPT/HCPCS: 31720; 36415; 36600; 71045-TC; 74018; 76770-TC; 80048-TC; 80053-TC; 80076-TC; 80202-TC; 81001; 82550-TC; 82570-TC; 82803-TC; 83605-TC; 83735-TC; 83970; 84100-TC; 84132-TC; 84155; 84165; 84300-TC; 84484-TC; 85025-TC; 85730-TC; 87040-TC; 87086-TC; 94002-TC; 94003-TC; 94760-TC; 94762-TC; 94799-TC; 99082-TC; A4223; A4623; A6253; A6403; A7526; G0378; J2185; J2405; J2543; J2765; J3370; J3371; J3475; J3480; J7030; J7050; J7060

== ENCOUNTER 2023-08-22 15:17 | Inpatient (IN) | payer MEDICARE, MEDICAID ==
[~2023-08-22] VITALS: Ht 165.1 cm; Wt 70.3 kg
[~2023-08-22 15:17] MED LIST changes: +ACET-868 GT; +ALBU2.5V38 IH; +AMLO10TA4 GT; +ASCO-495 GT; +ATOR20TA GT; +BISA10SU11 RC; +CHLO473M5 MM; +CLOT15CR5 TP; -DOXA1TAB; +FOLI0.8T2 GT; +HEPA50008 SQ; +HYDR453.3 TP; +HYDROGEN PEROXIDE TP; +IPRA0.2S9 IH; +LABE100T5 GT; -LANS15CA13; +LEVE100S GT; +LEVO100T GT; +LOPE2CAP GT; +MELA5TAB GT; +MINE105O TP; +NEOM28.37 TP; +NUT.237L67 GT; +NUTR1PAC14 GT; +PANT40SU2 GT; +POLY15DR40 EACHEYE; +THERAHONEY TP; +ZINC220C6 GT; +[UNRECOGNIZED DRUG - CODE] IV
[2023-08-22 18:38] VITALS: BP 106/68; TEMP 98.6; O2SAT 98
[2023-08-22] MEDS ORDERED: ONDANSETRON HCL/PF 4 MG/2 ML VIAL IVP PRN (18:57)
[2023-08-22] MEDS ORDERED: ARGININE/GLUTAMINE/CALCIUM BMB 1 EACH POWD.PACK GT SCH ×2 (18:57→19:10)
[2023-08-22] MEDS ORDERED: ACETAMINOPHEN 650 MG/20.3 ML UDC GT PRN (18:57)
[2023-08-22] MEDS ORDERED: VANCOMYCIN 1.25 GM in IV D5W 250 ML IV SCH (18:57)
[2023-08-22] MEDS ORDERED: LEVETIRACETAM SOL (5 ML) 100 MG/ML UDC GT SCH (19:04)
[2023-08-22] MEDS ORDERED: TUBERCULIN,PURIF.PROT.DERIV. 5 TU/0.1 ML VIAL ID SCH (19:04)
[2023-08-22] MEDS ORDERED: ACETAMINOPHEN 650 MG/20 ML UDC- SA PATIENTS-FEVER ONLY GT PRN (19:04)
[2023-08-22] MEDS ORDERED: IPRATROPIUM NEB FS 0.5 MG/2.5 ML AMPUL.NEB NEB PRN (19:04)
[2023-08-22] MEDS ORDERED: MELATONIN 3 MG TABLET GT SCH (19:04)
[2023-08-22] MEDS ORDERED: HYDROGEN PEROXIDE 480 ML BOTTLE TP PRN (19:04)
[2023-08-22] MEDS ORDERED: ALBUTEROL FS 2.5 MG/3 ML VIAL.NEB NEB PRN (19:04)
[2023-08-22] MEDS ORDERED: MINERAL OIL/PETROL OINT 396 GM JAR TP SCH (19:26)
[2023-08-22] MEDS ORDERED: THERAHONEY GEL 1.5 OZ TUBE TP SCH (19:26)
[2023-08-22] MEDS: ALBUTEROL FS 2.5 MG/3 ML VIAL.NEB NEB SCH (19:47)
[2023-08-22] MEDS: IPRATROPIUM NEB FS 0.5 MG/2.5 ML AMPUL.NEB NEB SCH (19:47)
[2023-08-22] MEDS: HYDROGEN PEROXIDE 480 ML BOTTLE TP SCH (19:50)
[2023-08-22 20:00] VITALS: BP 106/76; TEMP 97.9; O2SAT 99
[2023-08-22] MEDS: NEPRO 1,000 ML BOTTLE GT PRN (20:00)
[2023-08-22 20:28] VITALS: O2SAT 98
[2023-08-22] MEDS: MEROPENEM 1 G in IV NS 0.9% 100 ML IV SCH (21:00)
[2023-08-22] MEDS: CHLORHEXIDINE GLUCONATE 15 ML UDC MM SCH (21:58)
[2023-08-22] MEDS: METOCLOPRAMIDE HCL 10 MG/10 ML UDC GT SCH (21:58)
[2023-08-22] MEDS: Z GUARD REMEDY 4 OZ OINT TP SCH (21:59)
[2023-08-22] MEDS: HYDROCORTISONE 1% CREAM 28.35 GM TUBE TP SCH (21:59)
[2023-08-22] MEDS: ATORVASTATIN 10 MG TABLET GT SCH (21:59)
[2023-08-22] MEDS: VITS A AND D/WHITE PET/LANOLIN 5 GM PACKET TP SCH (21:59)
[2023-08-22] MEDS: MINERAL OIL/PETROL OINT 396 GM JAR TP SCH (21:59)
[2023-08-22] MEDS: THERAHONEY GEL 1.5 OZ TUBE TP SCH (21:59)
[2023-08-22] MEDS: VANCOMYCIN 1.25 GM in IV D5W 250 ML IV SCH (22:00)
[2023-08-23] MEDS: LEVOTHYROXINE SODIUM 100 MCG TABLET GT SCH (05:29)
[2023-08-23] MEDS ORDERED: LEVOTHYROXINE SODIUM 100 MCG TABLET GT SCH (07:30)
[2023-08-23 07:45] VITALS: BP 129/81; TEMP 98.6; O2SAT 100
[2023-08-23] MEDS: VIT B CMPLX 3/FA/VIT C/BIOTIN 1 TAB TABLET GT SCH (09:12)
[2023-08-23] MEDS: LEVETIRACETAM SOL (5 ML) 100 MG/ML UDC GT SCH (09:12)
[2023-08-23] MEDS: DOCUSATE SODIUM 100 MG CAPSULE PO SCH (09:12)
[2023-08-23] MEDS: ARGININE/GLUTAMINE/CALCIUM BMB 1 EACH POWD.PACK GT SCH (09:12)
[2023-08-23] MEDS: PROSOURCE / PROSTAT (PYXIS) 30 ML UDC GT SCH (09:12)
[2023-08-23 10:16] VITALS: O2SAT 88
[2023-08-23 10:22] VITALS: O2SAT 99
[2023-08-23 16:18] LABS: ABG BASE EXCESS 1.9 mmol/L; ABG OXYGEN SATURATION 96.6 % (92.0-98.5); ABG PCO2 35.9 mmHg (35.0-45.0); ABG PH 7.468 (7.350-7.450); ABG PO2 95.8 mmHg (75.0-100.0); ABG TOTAL HEMOGLOBIN 12.2 G/dL (13.5-18.0); AaDO2 75.9 mmHg; COHb 0.3 % (0.5-1.5); MetHb 0.2 % (0.0-1.5); O2Hb 96.1 % (94.0-97.0); SITE, ABG Left Radial; VENT MODE, BG C-PAP PS 10 +0 30%
[2023-08-23] MEDS ORDERED: BISACODYL SUPP (10 MG) 10 MG/SUPP.RECT SUPP.RECT RC PRN (17:30)
[2023-08-23] MEDS: DOCUSATE SODIUM LIQ 100 MG/10 ML UDC PO SCH (17:36)
[2023-08-23 19:20] VITALS: BP 112/72; TEMP 98.6; O2SAT 100
[2023-08-23] MEDS: POLYVINYL ALCOHOL 15 ML BOTTLE OP SCH (20:07)
[2023-08-23] MEDS: LABETALOL HCL (100MG) 100 MG TABLET GT SCH (20:07)
[2023-08-23] MEDS: CLOTRIMAZOLE 1% 15 GM TUBE TP SCH (20:07)
[2023-08-23] MEDS: MELATONIN 5 MG GT SCH (21:05)
[2023-08-23 22:20] VITALS: O2SAT 98
[2023-08-23 22:21] VITALS: O2SAT 96
[2023-08-24] VITALS (11 sets, daily range): BP systolic 102–106; BP diastolic 57–65; TEMP 98.1–98.5; O2SAT 95–98
[2023-08-24] MEDS: NEPRO 1,000 ML BOTTLE GT PRN (04:51)
[2023-08-24] MEDS: PANTOPRAZOLE 40 MG/PACK PACK GT SCH (05:05)
[2023-08-24 08:15] LABS: CALCIUM, SERUM 9.8 mg/dL (8.5-10.1); POTASSIUM 3.9 mmol/L (3.5-5.1)
[2023-08-24] MEDS: AMLODIPINE BESYLATE 5 MG TABLET GT SCH (08:40)
[2023-08-24] MEDS: ZINC SULFATE 220 MG CAPSULE GT SCH (08:44)
[2023-08-24] MEDS: ASCORBIC ACID 500 MG TABLET GT SCH (08:44)
[2023-08-24 10:31] LABS: ABG BASE EXCESS 0.7 mmol/L; ABG OXYGEN SATURATION 95.3 % (92.0-98.5); ABG PCO2 35.2 mmHg (35.0-45.0); ABG PH 7.455 (7.350-7.450); ABG TOTAL HEMOGLOBIN 12.8 G/dL (13.5-18.0); AaDO2 89.5 mmHg; COHb 0.1 % (0.5-1.5); MetHb 0.2 % (0.0-1.5); SITE, ABG Left Radial; VENT MODE, BG C/A 30%
[2023-08-24] MEDS: ACETAMINOPHEN 650 MG/20 ML UDC- SA PATIENTS-FEVER ONLY GT SCH (21:29)
[2023-08-24] MEDS: VITS A AND D/WHITE PET/LANOLIN 5 GM PACKET TP SCH (21:30)
[2023-08-25] VITALS (13 sets, daily range): BP systolic 98–130; BP diastolic 57–65; TEMP 97.8–98.7; O2SAT 96–99
[2023-08-25] MEDS: NEPRO 1,000 ML BOTTLE GT PRN (05:36)
[2023-08-25 06:32] LABS: CALCIUM, SERUM 9.4 mg/dL (8.5-10.1); CARBON DIOXIDE 28 mmol/L (21-32); CHLORIDE 102 mmol/L (98-107); CREATININE 0.9 mg/dL (0.6-1.3); GLUCOSE 99 mg/dL (74-106); POTASSIUM 3.6 mmol/L (3.5-5.1); SODIUM SERUM 138 mmol/L (136-145); UREA NITROGEN, BLOOD 44 mg/dL (7-18)
[2023-08-25] MEDS: ACETAMINOPHEN 650 MG/20.3 ML UDC GT SCH (21:05)
[2023-08-25] MEDS: VANCOMYCIN 750 MG in IV D5W 250 ML IV SCH (22:06)
[2023-08-26] VITALS (14 sets, daily range): BP systolic 109–113; BP diastolic 61–67; TEMP 97.7–98.2; O2SAT 96–99
[2023-08-26 07:57] LABS: CALCIUM, SERUM 9.8 mg/dL (8.5-10.1); CREATININE 0.9 mg/dL (0.6-1.3); POTASSIUM 3.8 mmol/L (3.5-5.1)
[2023-08-27] VITALS (14 sets, daily range): BP systolic 100–105; BP diastolic 58–69; TEMP 98.1–98.4; O2SAT 96–99
[2023-08-27 07:46] LABS: CALCIUM, SERUM 10.1 mg/dL (8.5-10.1); CARBON DIOXIDE 31 mmol/L (21-32); CHLORIDE 104 mmol/L (98-107); GLUCOSE 104 mg/dL (74-106); POTASSIUM 3.9 mmol/L (3.5-5.1); SODIUM SERUM 140 mmol/L (136-145); UREA NITROGEN, BLOOD 59 mg/dL (7-18)
[2023-08-28] VITALS (8 sets, daily range): BP systolic 117; BP diastolic 70–77; TEMP 98.2–98.6; O2SAT 95–98
[2023-08-28 07:47] LABS: CALCIUM, SERUM 10.3 mg/dL (8.5-10.1); CREATININE 0.9 mg/dL (0.6-1.3); POTASSIUM 3.7 mmol/L (3.5-5.1)
[2023-08-28] MEDS: IV NS 0.9% 1,000 ML IV PRN (11:00)
[2023-08-28 11:03] LABS: BASOPHILS # (AUTO) 0.1 K/uL (0.0-0.2); BASOPHILS % (AUTO) 0.5 % (0.0-2.0); EOSINOPHILS # (AUTO) 0.3 K/uL (0.0-0.7); EOSINOPHILS % (AUTO) 2.5 % (0.0-6.0); HEMATOCRIT 31 % (39-51); HEMOGLOBIN 10.4 g/dL (13.5-17.5); LYMPHOCYTES # (AUTO) 0.8 K/uL (0.8-4.8); LYMPHOCYTES % (AUTO) 7.6 % (20.0-44.0); MEAN CORPUSCULAR HEMOGLOBIN 32 PG (26.0-33.0); MEAN CORPUSCULAR HGB CONC 34 g/dl (31.0-36.0); MEAN CORPUSCULAR VOLUME 95 fL (80-96); MONOCYTES # (AUTO) 0.8 K/uL (0.1-1.30); MONOCYTES % (AUTO) 7.4 % (2.0-12.0); NEUTROPHILS # (AUTO) 8.7 K/uL (1.8-8.9); PLATELET COUNT (AUTO) 310 K/uL (150-450); RED BLOOD CELL COUNT(AUTO) 3.25 MIL/uL (4.5-6.0); RED CELL DISTRIBUTION WIDTH 14.2 % (11.5-15.0); WHITE BLOOD COUNT (AUTO) 10.7 K/uL (4.3-11.0)
[2023-08-28] MEDS: HEPARIN SODIUM, PORCINE 5000 UNITS/1 ML VIAL SQ SCH (20:29)
[2023-08-29 01:39] VITALS: O2SAT 98
[2023-08-29 06:59] LABS: CALCIUM, SERUM 9.6 mg/dL (8.5-10.1); CREATININE 0.9 mg/dL (0.6-1.3); POTASSIUM 3.9 mmol/L (3.5-5.1)
[2023-08-29 07:50] VITALS: BP 91/49; TEMP 98.5; O2SAT 99
[2023-08-29 09:26] VITALS: O2SAT 90
[2023-08-29 10:38] VITALS: O2SAT 97
[2023-08-29 20:00] VITALS: BP 115/62; TEMP 98.1; O2SAT 99
[2023-08-29 22:04] VITALS: O2SAT 98
[2023-08-30 07:17] LABS: CALCIUM, SERUM 9.9 mg/dL (8.5-10.1); CREATININE 0.9 mg/dL (0.6-1.3); POTASSIUM 3.8 mmol/L (3.5-5.1)
[2023-08-30 07:24] VITALS: BP 114/78; TEMP 98.2; O2SAT 99
[2023-08-30 07:44] LABS: THYROID STIMULATING HORMONE 6.855 uIU/mL (0.358-3.74)
[2023-08-30] MEDS: DOCUSATE SODIUM LIQ 100 MG/10 ML UDC GT SCH (07:59)
[2023-08-30 10:01] VITALS: O2SAT 100; O2SAT 97
[2023-08-30 19:01] VITALS: BP 116/70; TEMP 98.6; O2SAT 98
[2023-08-30 23:13] VITALS: O2SAT 98
[2023-08-30 23:14] VITALS: O2SAT 98
[2023-08-31 07:34] VITALS: BP 109/61; TEMP 97.9; O2SAT 99
[2023-08-31 11:29] VITALS: O2SAT 97
[2023-08-31] MEDS ORDERED: ONDANSETRON 4 MG TAB.RAPDIS GT PRN (14:00)
[2023-08-31] MEDS: SODIUM CHLORIDE 1000 MG TABLET GT SCH (17:07)
[2023-08-31 19:06] VITALS: BP 109/67; TEMP 98.1; O2SAT 100
[2023-08-31 20:41] VITALS: O2SAT 100
[2023-08-31] MEDS: THERAHONEY GEL 1.5 OZ TUBE TP SCH (21:40)
[2023-09-01] VITALS (7 sets, daily range): BP systolic 88–131; BP diastolic 53–64; TEMP 97–98.2; O2SAT 81–99
[2023-09-01] MEDS: NEPRO 1,000 ML BOTTLE GT PRN (11:39)
[2023-09-02 08:28] VITALS: BP 126/81; TEMP 97.7; O2SAT 100
[2023-09-02 10:00] VITALS: O2SAT 100
[2023-09-02 10:39] VITALS: O2SAT 100
[2023-09-02 20:09] VITALS: BP 117/59; TEMP 98.4; O2SAT 98
[2023-09-03 00:02] VITALS: O2SAT 97
[2023-09-03 07:36] LABS: CALCIUM, SERUM 10.7 mg/dL (8.5-10.1); CREATININE 1.1 mg/dL (0.6-1.3)
[2023-09-03 07:58] LABS: POTASSIUM 3.9 mmol/L (3.5-5.1)
[2023-09-03 11:59] VITALS: O2SAT 98
[2023-09-03] MEDS: IV NS 0.9% 1,000 ML IV PRN (12:00)
[2023-09-03 14:20] LABS: ABG BASE EXCESS 4.5 mmol/L; ABG OXYGEN SATURATION 97.2 % (92.0-98.5); ABG PCO2 40.2 mmHg (35.0-45.0); ABG PH 7.469 (7.350-7.450); ABG PO2 100.8 mmHg (75.0-100.0); ABG TOTAL HEMOGLOBIN 10.5 G/dL (13.5-18.0); AaDO2 65.9 mmHg; COHb 0.3 % (0.5-1.5); MetHb 0.1 % (0.0-1.5); O2Hb 96.8 % (94.0-97.0); PEEP,BG 5 cm H2O; SITE, ABG Left Radial
[2023-09-03 19:45] VITALS: BP 105/65; TEMP 99.3; O2SAT 99
[2023-09-03 22:30] VITALS: O2SAT 99
[2023-09-04 08:22] VITALS: BP 125/82; TEMP 98.8; O2SAT 99
[2023-09-04 10:48] VITALS: O2SAT 99
[2023-09-04 10:49] VITALS: O2SAT 100
[2023-09-04] MEDS ORDERED: IV NS 0.9% 1,000 ML IV SCH (13:39)
[2023-09-04 20:04] VITALS: BP 130/75; TEMP 98.7; O2SAT 100
[2023-09-04 22:32] VITALS: O2SAT 100
[2023-09-05 08:10] VITALS: BP 111/73; TEMP 98.2; O2SAT 100
[2023-09-05 08:28] LABS: CALCIUM, SERUM 10.4 mg/dL (8.5-10.1); CREATININE 0.9 mg/dL (0.6-1.3); POTASSIUM 3.7 mmol/L (3.5-5.1)
[2023-09-05 15:06] VITALS: O2SAT 100
[2023-09-05 20:28] VITALS: BP 101/58; TEMP 98.1; O2SAT 99
[2023-09-05 22:02] VITALS: O2SAT 100
[2023-09-06 07:10] VITALS: BP 114/65; TEMP 99; O2SAT 98
[2023-09-06] MEDS: ARGININE/GLUTAMINE/CALCIUM BMB 1 EACH POWD.PACK GT SCH (09:00)
[2023-09-06 10:04] VITALS: O2SAT 99
[2023-09-06 10:05] VITALS: O2SAT 99
[2023-09-06] MEDS: PROSOURCE / PROSTAT (PYXIS) 30 ML UDC GT SCH (11:05)
[2023-09-06 19:14] VITALS: BP 106/62; TEMP 100.4; O2SAT 98
[2023-09-06] MEDS: CLOTRIMAZOLE 1% 15 GM TUBE TP SCH (20:25)
[2023-09-06 23:51] VITALS: O2SAT 94
[2023-09-06 23:52] VITALS: O2SAT 94
[2023-09-07 07:41] VITALS: BP 112/75; TEMP 99.5; O2SAT 98
[2023-09-07 10:01] VITALS: O2SAT 97
[2023-09-07 18:59] VITALS: BP 102/63; TEMP 99; O2SAT 99
[2023-09-07 23:12] VITALS: O2SAT 96
[2023-09-08 08:03] VITALS: BP 101/72; TEMP 99.3; O2SAT 100
[2023-09-08 08:12] LABS: CALCIUM, SERUM 10.4 mg/dL (8.5-10.1); CARBON DIOXIDE 31 mmol/L (21-32); CHLORIDE 105 mmol/L (98-107); CREATININE 1.1 mg/dL (0.6-1.3); GLUCOSE 100 mg/dL (74-106); POTASSIUM 3.7 mmol/L (3.5-5.1); SODIUM SERUM 140 mmol/L (136-145); UREA NITROGEN, BLOOD 59 mg/dL (7-18)
[2023-09-08 08:57] VITALS: BP 102/63; TEMP 99; O2SAT 99
[2023-09-08 10:32] VITALS: O2SAT 97
[2023-09-08 19:00] VITALS: BP 108/57; TEMP 98.4; O2SAT 100
[2023-09-08 23:22] VITALS: O2SAT 99
[2023-09-09 07:42] VITALS: BP 111/70; TEMP 98.1; O2SAT 100
[2023-09-09 10:15] VITALS: O2SAT 100
[2023-09-09 19:04] VITALS: BP 117/68; TEMP 99.3; O2SAT 97
[2023-09-09 23:15] VITALS: O2SAT 98
[2023-09-10 07:36] VITALS: BP 129/72; TEMP 98.8; O2SAT 100
[2023-09-10 10:35] VITALS: O2SAT 100
[2023-09-10 10:36] VITALS: O2SAT 100
[2023-09-10 19:56] VITALS: BP 128/84; TEMP 98.2; O2SAT 99
[2023-09-10 22:02] VITALS: O2SAT 99
[2023-09-11 07:57] VITALS: BP 121/69; TEMP 98.1; O2SAT 100
[2023-09-11 10:02] VITALS: O2SAT 99
[2023-09-11 10:03] VITALS: O2SAT 99
[2023-09-11 19:57] VITALS: BP 94/60; TEMP 98.1; O2SAT 100
[2023-09-11] MEDS: THERAHONEY GEL 1.5 OZ TUBE TP SCH (21:08)
[2023-09-11] MEDS: Z GUARD REMEDY 4 OZ OINT TP SCH (21:09)
[2023-09-11 22:48] VITALS: O2SAT 99
[2023-09-12 08:02] VITALS: BP 109/64; TEMP 97.9; O2SAT 100
[2023-09-12 10:01] VITALS: O2SAT 100
[2023-09-12 20:49] VITALS: BP 118/72; TEMP 98.6; O2SAT 97
[2023-09-12 23:08] VITALS: O2SAT 100
[2023-09-12 23:21] VITALS: O2SAT 100
[2023-09-13 07:25] VITALS: BP 107/68; TEMP 98.8; O2SAT 98
[2023-09-13 10:50] VITALS: O2SAT 99
[2023-09-13 21:09] VITALS: BP 106/65; TEMP 99.3; O2SAT 100
[2023-09-13 22:11] VITALS: O2SAT 100
[2023-09-14 07:47] VITALS: BP 118/74; TEMP 98.6; O2SAT 100
[2023-09-14 10:10] VITALS: O2SAT 99
[2023-09-14 10:31] VITALS: O2SAT 99
[2023-09-14 19:07] VITALS: BP 111/54; TEMP 99.3; O2SAT 100
[2023-09-14 23:35] VITALS: O2SAT 100
[2023-09-15 07:25] VITALS: BP 142/75; TEMP 98.8; O2SAT 98
[2023-09-15 10:00] VITALS: O2SAT 98
[2023-09-15 13:57] VITALS: O2SAT 98
[2023-09-15 19:50] VITALS: BP 111/68; TEMP 97.8; O2SAT 100
[2023-09-15 22:02] VITALS: O2SAT 99
[2023-09-16 10:00] VITALS: BP 120/77; TEMP 98.2; O2SAT 100; O2SAT 99
[2023-09-16 10:01] VITALS: O2SAT 98
[2023-09-16 20:00] VITALS: BP 141/83; TEMP 98.1; O2SAT 99
[2023-09-16 22:51] VITALS: O2SAT 100
[2023-09-17 08:47] VITALS: BP 102/71; TEMP 98.5; O2SAT 100
[2023-09-17 10:00] VITALS: O2SAT 98
[2023-09-17 20:00] VITALS: BP 115/71; TEMP 98.1; O2SAT 99
[2023-09-17 22:09] VITALS: O2SAT 99
[2023-09-18 08:45] VITALS: BP 103/71; TEMP 98.4; O2SAT 100
[2023-09-18 10:00] VITALS: O2SAT 99
[2023-09-18 10:13] LABS: ABG BASE EXCESS 1.4 mmol/L; ABG OXYGEN SATURATION 98.7 % (92.0-98.5); ABG PCO2 37.7 mmHg (35.0-45.0); ABG PH 7.446 (7.350-7.450); ABG PO2 145.5 mmHg (75.0-100.0); ABG TOTAL HEMOGLOBIN 12.4 G/dL (13.5-18.0); AaDO2 24.1 mmHg; COHb 0.3 % (0.5-1.5); MetHb 0.3 % (0.0-1.5); O2Hb 98.1 % (94.0-97.0); SITE, ABG Left Radial; VENT MODE, BG SIMV 5 500 +5 30%
[2023-09-18 10:50] VITALS: O2SAT 99
[2023-09-18 20:53] VITALS: BP 133/85; TEMP 98.3; O2SAT 100
[2023-09-18 22:25] VITALS: O2SAT 100
[2023-09-19 07:15] VITALS: BP 98/61; TEMP 98.3; O2SAT 99
[2023-09-19 11:12] VITALS: O2SAT 100
[2023-09-19 14:19] LABS: BASOPHILS # (AUTO) 0.1 K/uL (0.0-0.2); BASOPHILS % (AUTO) 0.6 % (0.0-2.0); EOSINOPHILS # (AUTO) 0.2 K/uL (0.0-0.7); EOSINOPHILS % (AUTO) 2.1 % (0.0-6.0); HEMATOCRIT 32 % (39-51); HEMOGLOBIN 10.4 g/dL (13.5-17.5); LYMPHOCYTES # (AUTO) 0.7 K/uL (0.8-4.8); LYMPHOCYTES % (AUTO) 6.6 % (20.0-44.0); MEAN CORPUSCULAR HEMOGLOBIN 31 PG (26.0-33.0); MEAN CORPUSCULAR HGB CONC 33 g/dl (31.0-36.0); MEAN CORPUSCULAR VOLUME 95 fL (80-96); MONOCYTES # (AUTO) 0.9 K/uL (0.1-1.30); MONOCYTES % (AUTO) 8.4 % (2.0-12.0); NEUTROPHILS # (AUTO) 9.1 K/uL (1.8-8.9); NEUTROPHILS % (AUTO) 82.3 % (43.0-81.0); PLATELET COUNT (AUTO) 153 K/uL (150-450); RED BLOOD CELL COUNT(AUTO) 3.33 MIL/uL (4.5-6.0); RED CELL DISTRIBUTION WIDTH 14.4 % (11.5-15.0); WHITE BLOOD COUNT (AUTO) 11.1 K/uL (4.3-11.0)
[2023-09-19 14:35] LABS: CALCIUM, SERUM 10.2 mg/dL (8.5-10.1); CREATININE 1.1 mg/dL (0.6-1.3); POTASSIUM 3.9 mmol/L (3.5-5.1)
[2023-09-19 14:39] LABS: PREALBUMIN 29.8 MG/DL (18.0-35.7)
[2023-09-19 20:00] VITALS: BP 126/62; TEMP 98.1; O2SAT 99
[2023-09-19 22:13] VITALS: O2SAT 100
[2023-09-20 07:26] VITALS: BP 99/66; TEMP 97.7; O2SAT 100
[2023-09-20 10:03] VITALS: O2SAT 100
[2023-09-20 10:04] VITALS: O2SAT 100
[2023-09-20 20:00] VITALS: BP 130/67; TEMP 98.9; O2SAT 98
[2023-09-20] MEDS: ARGININE/GLUTAMINE/CALCIUM BMB 1 EACH POWD.PACK GT SCH (21:42)
[2023-09-20 23:39] VITALS: O2SAT 100; O2SAT 99
[2023-09-21 07:45] VITALS: BP 119/68; TEMP 98.1; O2SAT 100
[2023-09-21 10:10] VITALS: O2SAT 98
[2023-09-21] MEDS: MODAFINIL 100 MG TABLET PO SCH (10:20)
[2023-09-21 19:40] VITALS: BP 120/72; TEMP 98.4; O2SAT 100
[2023-09-21] MEDS: Z GUARD REMEDY 4 OZ OINT TP SCH (21:09)
[2023-09-21] MEDS: THERAHONEY GEL 1.5 OZ TUBE TP SCH (21:09)
[2023-09-21] MEDS: CLOTRIMAZOLE 1% 15 GM TUBE TP SCH (21:09)
[2023-09-21] MEDS: VITS A AND D/WHITE PET/LANOLIN 5 GM PACKET TP SCH (21:10)
[2023-09-21 23:28] VITALS: O2SAT 100
[2023-09-22 07:52] VITALS: BP 124/72; TEMP 98.8; O2SAT 99
[2023-09-22 10:20] VITALS: O2SAT 99
[2023-09-22 19:22] VITALS: BP 114/72; TEMP 98.5; O2SAT 99
[2023-09-22 22:24] VITALS: O2SAT 99
[2023-09-23 07:40] VITALS: BP 112/64; TEMP 98.3; O2SAT 99
[2023-09-23 09:40] LABS: CALCIUM, SERUM 10.5 mg/dL (8.5-10.1); CREATININE 1.2 mg/dL (0.6-1.3)
[2023-09-23 12:07] VITALS: O2SAT 98
[2023-09-23] MEDS ORDERED: IV NS 0.9% 1,000 ML IV PRN (13:00)
[2023-09-23 19:58] VITALS: BP 111/64; TEMP 99; O2SAT 100
[2023-09-23 23:37] VITALS: O2SAT 99
[2023-09-24 07:37] VITALS: BP 103/60; TEMP 99; O2SAT 98
[2023-09-24 12:35] LABS: ABG BASE EXCESS 3.2 mmol/L; ABG OXYGEN SATURATION 97.7 % (92.0-98.5); ABG PH 7.445 (7.350-7.450); ABG TOTAL HEMOGLOBIN 11.1 G/dL (13.5-18.0); AaDO2 57.7 mmHg; COHb 0.1 % (0.5-1.5); MetHb 0.1 % (0.0-1.5); O2Hb 97.5 % (94.0-97.0); SITE, ABG Left Radial; VENT MODE, BG CPAP PSV10 30% FiO2
[2023-09-24 14:45] VITALS: O2SAT 98
[2023-09-24 19:42] VITALS: BP 95/65; TEMP 99.3; O2SAT 97
[2023-09-24 23:06] VITALS: O2SAT 99
[2023-09-25 08:00] VITALS: BP 109/68; TEMP 97.2; O2SAT 98
[2023-09-25 09:15] LABS: CALCIUM, SERUM 10.6 mg/dL (8.5-10.1); CREATININE 1.1 mg/dL (0.6-1.3); POTASSIUM 3.7 mmol/L (3.5-5.1)
[2023-09-25 10:00] VITALS: O2SAT 98
[2023-09-25 10:16] VITALS: O2SAT 98
[2023-09-25 10:17] VITALS: O2SAT 98
[2023-09-25 19:39] VITALS: BP 106/66; TEMP 98.1; O2SAT 100
[2023-09-25 23:45] VITALS: O2SAT 99
[2023-09-26 07:36] VITALS: BP 113/71; TEMP 97.9; O2SAT 99
[2023-09-26 08:00] VITALS: O2SAT 98
[2023-09-26 08:15] VITALS: O2SAT 98; O2SAT 99
[2023-09-26] MEDS: IV NS 0.9% 1,000 ML IV PRN (08:52)
[2023-09-26 12:10] VITALS: O2SAT 98
[2023-09-26 20:42] VITALS: BP 107/68; TEMP 99; O2SAT 98
[2023-09-26 23:28] VITALS: O2SAT 98
[2023-09-27 07:35] VITALS: BP 115/51; TEMP 98.4; O2SAT 100
[2023-09-27 08:12] VITALS: O2SAT 96
[2023-09-27 08:27] VITALS: O2SAT 98
[2023-09-27 10:05] VITALS: O2SAT 98
[2023-09-27] MEDS: BACI/NEOM/POLY B OINT PKT 1 UDPKT PACKET TP SCH (17:35)
[2023-09-27 19:21] VITALS: BP 97/65; TEMP 99.9; O2SAT 99
[2023-09-27 23:12] VITALS: O2SAT 100
[2023-09-28 07:29] LABS: CALCIUM, SERUM 9.5 mg/dL (8.5-10.1); CREATININE 0.9 mg/dL (0.6-1.3); POTASSIUM 3.5 mmol/L (3.5-5.1)
[2023-09-28 07:39] VITALS: BP 110/59; TEMP 98.4; O2SAT 99
[2023-09-28 10:09] VITALS: O2SAT 98
[2023-09-28 13:48] VITALS: O2SAT 100
[2023-09-28 20:01] VITALS: BP 112/68; TEMP 98.6; O2SAT 100
[2023-09-28 23:36] VITALS: O2SAT 100
[2023-09-29 07:21] VITALS: BP 100/65; TEMP 99.2; O2SAT 100
[2023-09-29 10:00] VITALS: BP 100/65; TEMP 99.2; O2SAT 100
[2023-09-29 12:21] VITALS: O2SAT 98
[2023-09-29 19:57] VITALS: BP 115/65; TEMP 98.8; O2SAT 100
[2023-09-29 23:43] VITALS: O2SAT 100
[2023-09-30 07:09] VITALS: BP 119/66; TEMP 99; O2SAT 100
[2023-09-30 10:00] VITALS: O2SAT 98
[2023-09-30 10:14] VITALS: O2SAT 100; O2SAT 98
[2023-09-30 20:00] VITALS: BP 128/62; TEMP 98.1; O2SAT 99
[2023-09-30 22:04] VITALS: O2SAT 99
[2023-10-01] VITALS (7 sets, daily range): BP systolic 106–131; BP diastolic 64–72; TEMP 98–98.1; O2SAT 98–99
[2023-10-02 08:41] VITALS: BP 120/74; TEMP 98.4; O2SAT 99
[2023-10-02] MEDS: MODAFINIL 100 MG TABLET PO SCH (09:59)
[2023-10-02 10:19] VITALS: O2SAT 95
[2023-10-02 19:58] VITALS: BP 121/68; TEMP 99.1; O2SAT 98
[2023-10-02 22:10] VITALS: O2SAT 99
[2023-10-03 09:06] VITALS: O2SAT 97
[2023-10-03 09:16] VITALS: O2SAT 98
[2023-10-03 12:07] VITALS: O2SAT 98
[2023-10-03 12:08] VITALS: O2SAT 98
[2023-10-03 19:56] VITALS: BP 115/69; TEMP 98.3; O2SAT 99
[2023-10-03] MEDS: DAKINS QUARTER STRENGTH (0.125%) 480 ML BOTTLE TOP SCH (21:51)
[2023-10-03] MEDS: VITS A AND D/WHITE PET/LANOLIN 5 GM PACKET TP SCH (21:52)
[2023-10-03] MEDS: Z GUARD REMEDY 4 OZ OINT TP SCH (21:52)
[2023-10-03 22:08] VITALS: O2SAT 100
[2023-10-04] VITALS (9 sets, daily range): BP systolic 101–106; BP diastolic 67–70; TEMP 98.2; O2SAT 98–100
[2023-10-05] VITALS (9 sets, daily range): BP systolic 105–121; BP diastolic 58–69; TEMP 98.1–98.6; O2SAT 96–99
[2023-10-06] VITALS (8 sets, daily range): BP systolic 95–112; BP diastolic 57–68; TEMP 97.7–98; O2SAT 95–100
[2023-10-06] MEDS: ACETAMINOPHEN 650 MG/20 ML UDC- SA PATIENTS-PAIN ONLY GT PRN (17:22)
[2023-10-07] VITALS (9 sets, daily range): BP systolic 102–129; BP diastolic 66–87; TEMP 98.1–98.6; O2SAT 97–100
[2023-10-08 07:14] LABS: CREATININE 1.1 mg/dL (0.6-1.3); POTASSIUM 3.4 mmol/L (3.5-5.1)
[2023-10-08 07:47] VITALS: BP 136/74; TEMP 98.6; O2SAT 98
[2023-10-08 10:01] VITALS: O2SAT 97
[2023-10-08 13:08] VITALS: O2SAT 98
[2023-10-08 13:18] VITALS: O2SAT 99
[2023-10-08 20:00] VITALS: BP 100/67; TEMP 98.1; O2SAT 99
[2023-10-08 23:03] VITALS: O2SAT 99
[2023-10-09] VITALS (10 sets, daily range): BP systolic 100–127; BP diastolic 61–79; TEMP 97.7–98.1; O2SAT 96–99
[2023-10-09 13:57] LABS: ABG BASE EXCESS 6.6 mmol/L; ABG OXYGEN SATURATION 96.2 % (92.0-98.5); ABG PCO2 40.7 mmHg (35.0-45.0); ABG PH 7.492 (7.350-7.450); ABG PO2 81.7 mmHg (75.0-100.0); ABG TOTAL HEMOGLOBIN 11.8 G/dL (13.5-18.0); AaDO2 69.9 mmHg; COHb 0.2 % (0.5-1.5); MetHb 0.1 % (0.0-1.5); O2Hb 95.9 % (94.0-97.0); SITE, ABG Left Radial; VENT MODE, BG C/A 5LPM 28%
[2023-10-10] VITALS (8 sets, daily range): BP systolic 112–116; BP diastolic 65–71; TEMP 98–98.3; O2SAT 95–100
[2023-10-10] MEDS: POTASSIUM CHLORIDE 20 MEQ POWDER PACKET GT ONE (14:55)
[2023-10-11] VITALS (9 sets, daily range): BP systolic 102–125; BP diastolic 63–76; TEMP 97.3–98.8; O2SAT 96–99
[2023-10-12] VITALS (8 sets, daily range): BP systolic 102–126; BP diastolic 62–84; TEMP 98.5–98.6; O2SAT 96–99
[2023-10-12 07:28] LABS: CALCIUM, SERUM 10.2 mg/dL (8.5-10.1); CREATININE 1.1 mg/dL (0.6-1.3); POTASSIUM 4.1 mmol/L (3.5-5.1)
[2023-10-12] MEDS: THERAHONEY GEL 1.5 OZ TUBE TP SCH (20:28)
[2023-10-12] MEDS: BACI/NEOM/POLY B OINT PKT 1 UDPKT PACKET TP SCH (20:28)
[2023-10-12] MEDS: Z GUARD REMEDY 4 OZ OINT TP SCH (20:28)
[2023-10-13] VITALS (8 sets, daily range): BP systolic 105–108; BP diastolic 62–63; TEMP 97.8–98.2; O2SAT 96–99
[2023-10-13 06:41] LABS: BASOPHILS # (AUTO) 0.1 K/uL (0.0-0.2); BASOPHILS % (AUTO) 0.8 % (0.0-2.0); EOSINOPHILS # (AUTO) 0.4 K/uL (0.0-0.7); EOSINOPHILS % (AUTO) 5.6 % (0.0-6.0); HEMATOCRIT 32 % (39-51); HEMOGLOBIN 10.9 g/dL (13.5-17.5); LYMPHOCYTES # (AUTO) 0.7 K/uL (0.8-4.8); LYMPHOCYTES % (AUTO) 8.7 % (20.0-44.0); MEAN CORPUSCULAR HEMOGLOBIN 31 PG (26.0-33.0); MEAN CORPUSCULAR HGB CONC 34 g/dl (31.0-36.0); MEAN CORPUSCULAR VOLUME 91 fL (80-96); MONOCYTES # (AUTO) 0.8 K/uL (0.1-1.30); MONOCYTES % (AUTO) 9.7 % (2.0-12.0); NEUTROPHILS # (AUTO) 5.9 K/uL (1.8-8.9); NEUTROPHILS % (AUTO) 75.2 % (43.0-81.0); PLATELET COUNT (AUTO) 138 K/uL (150-450); RED BLOOD CELL COUNT(AUTO) 3.51 MIL/uL (4.5-6.0); RED CELL DISTRIBUTION WIDTH 14.5 % (11.5-15.0); WHITE BLOOD COUNT (AUTO) 7.8 K/uL (4.3-11.0)
[2023-10-13 06:54] LABS: ALBUMIN 2.5 g/dL (3.4-5.0); BILIRUBIN,TOTAL 0.3 mg/dL (0.2-1.0); CALCIUM, SERUM 10.7 mg/dL (8.5-10.1); CREATININE 1.1 mg/dL (0.6-1.3); MAGNESIUM 2.4 mg/dL (1.8-2.4); PHOSPHORUS 4.9 mg/dL (2.5-4.9); POTASSIUM 3.7 mmol/L (3.5-5.1); TOTAL PROTEIN, SERUM 7.2 g/dL (6.4-8.2)
[2023-10-14] VITALS (9 sets, daily range): BP systolic 106–135; BP diastolic 61–78; TEMP 98.2–99.1; O2SAT 96–99
[2023-10-15] VITALS (10 sets, daily range): BP systolic 109–126; BP diastolic 56–79; TEMP 98.1–98.6; O2SAT 94–100
[2023-10-15 08:03] LABS: CALCIUM, SERUM 11.4 mg/dL (8.5-10.1); POTASSIUM 3.4 mmol/L (3.5-5.1)
[2023-10-15] MEDS: POTASSIUM CHLORIDE 20 MEQ POWDER PACKET GT ONE (12:45)
[2023-10-16] VITALS (12 sets, daily range): BP systolic 115–140; BP diastolic 66–79; TEMP 98.3–99.5; O2SAT 95–100
[2023-10-16 07:09] LABS: *SPE A/G RATIO 0.7 (0.7-1.7); *SPE ALBUMIN 2.5 g/dL (2.9-4.4); *SPE ALPHA-1-GLOBULIN 0.3 g/dL (0.0-0.4); *SPE BETA GLOBULIN 1.2 g/dL (0.7-1.3); *SPE GLOBULIN, TOTAL 3.6 g/dL (2.2-3.9); *SPE M-SPIKE Not Observed g/dL (Not Observed); *SPE PROTEIN TOTAL 6.1 g/dL (6.0-8.5); *SPEGAMMA GLOBULIN 1.1 g/dL (0.4-1.8)
[2023-10-16 09:12] LABS: *SPE A/G RATIO 0.7 (0.7-1.7); *SPE ALBUMIN 2.8 g/dL (2.9-4.4); *SPE ALPHA-1-GLOBULIN 0.3 g/dL (0.0-0.4); *SPE ALPHA-2-GLOBULIN 1.1 g/dL (0.4-1.0); *SPE BETA GLOBULIN 1.3 g/dL (0.7-1.3); *SPE GLOBULIN, TOTAL 3.8 g/dL (2.2-3.9); *SPE M-SPIKE Not Observed g/dL (Not Observed); *SPE PROTEIN TOTAL 6.6 g/dL (6.0-8.5); *SPEGAMMA GLOBULIN 1.1 g/dL (0.4-1.8)
[2023-10-17] VITALS (12 sets, daily range): BP systolic 118–126; BP diastolic 70–79; TEMP 98–98.2; O2SAT 97–99
[2023-10-17 00:06] LABS: VIT D, 25-HYDROXY 44.1 ng/mL (30.0-100.0)
[2023-10-17 12:05] LABS: CALCIUM, SERUM 11.5 mg/dL (8.5-10.1); CARBON DIOXIDE 30 mmol/L (21-32); CHLORIDE 99 mmol/L (98-107); CREATININE 1.1 mg/dL (0.6-1.3); GLUCOSE 127 mg/dL (74-106); POTASSIUM 3.8 mmol/L (3.5-5.1); SODIUM SERUM 136 mmol/L (136-145); UREA NITROGEN, BLOOD 63 mg/dL (7-18)
[2023-10-17 20:11] LABS: CALCITRIOL VIT D,1, 25 DIHYDRO 15.1 pg/mL (24.8-81.5)
[2023-10-18] VITALS (14 sets, daily range): BP systolic 108–109; BP diastolic 60–68; TEMP 98.6–98.8; O2SAT 95–98
[2023-10-19] VITALS (15 sets, daily range): BP systolic 98–99; BP diastolic 55–62; TEMP 97.9–98.4; O2SAT 95–99
[2023-10-20] VITALS (14 sets, daily range): BP systolic 95–117; BP diastolic 57–74; TEMP 98.3–98.6; O2SAT 17–97
[2023-10-21] VITALS (12 sets, daily range): BP systolic 111–118; BP diastolic 67–73; TEMP 97.9–98; O2SAT 96–98
[2023-10-22] VITALS (14 sets, daily range): BP systolic 101–115; BP diastolic 58–59; TEMP 98–98.2; O2SAT 95–99
[2023-10-22 07:24] LABS: CALCIUM, SERUM 11.1 mg/dL (8.5-10.1); POTASSIUM 3.4 mmol/L (3.5-5.1)
[2023-10-22 07:32] LABS: THYROID STIMULATING HORMONE 3.619 uIU/mL (0.358-3.74)
[2023-10-22] MEDS: POTASSIUM CHLORIDE 20 MEQ POWDER PACKET GT ONE (13:32)
[2023-10-23] VITALS (13 sets, daily range): BP systolic 119–126; BP diastolic 62–73; TEMP 97.9–98.3; O2SAT 95–99
[2023-10-23 07:14] LABS: BASOPHILS % (AUTO) 0.6 % (0.0-2.0); EOSINOPHILS # (AUTO) 0.3 K/uL (0.0-0.7); EOSINOPHILS % (AUTO) 4.4 % (0.0-6.0); HEMATOCRIT 35 % (39-51); HEMOGLOBIN 11.9 g/dL (13.5-17.5); LYMPHOCYTES # (AUTO) 0.6 K/uL (0.8-4.8); LYMPHOCYTES % (AUTO) 7.6 % (20.0-44.0); MEAN CORPUSCULAR HEMOGLOBIN 30 PG (26.0-33.0); MEAN CORPUSCULAR HGB CONC 34 g/dl (31.0-36.0); MEAN CORPUSCULAR VOLUME 90 fL (80-96); MONOCYTES # (AUTO) 0.8 K/uL (0.1-1.30); MONOCYTES % (AUTO) 10.3 % (2.0-12.0); NEUTROPHILS # (AUTO) 5.9 K/uL (1.8-8.9); NEUTROPHILS % (AUTO) 77.1 % (43.0-81.0); PLATELET COUNT (AUTO) 144 K/uL (150-450); RED BLOOD CELL COUNT(AUTO) 3.94 MIL/uL (4.5-6.0); RED CELL DISTRIBUTION WIDTH 14.5 % (11.5-15.0); WHITE BLOOD COUNT (AUTO) 7.7 K/uL (4.3-11.0)
[2023-10-24] VITALS (14 sets, daily range): BP systolic 115–125; BP diastolic 63–70; TEMP 97.7–98.6; O2SAT 96–100
[2023-10-25] VITALS (14 sets, daily range): BP systolic 97; BP diastolic 79; TEMP 97.5; O2SAT 94–100
[2023-10-26] VITALS (14 sets, daily range): BP systolic 116–118; BP diastolic 73–80; TEMP 98.2–98.9; O2SAT 96–98
[2023-10-26 15:12] LABS: CHROMOGRANIN A 562.8 ng/mL (0.0-101.8)
[2023-10-26] MEDS: POLYETHYLENE GLYCOL 3350 17 GM POWD.PACK GT PRN (18:52)
[2023-10-27] VITALS (13 sets, daily range): BP systolic 99–115; BP diastolic 65–72; TEMP 97.6–98.2; O2SAT 95–100
[2023-10-28] VITALS (12 sets, daily range): BP systolic 108–114; BP diastolic 65–74; TEMP 97.6–98.1; O2SAT 96–100
[2023-10-29] VITALS (12 sets, daily range): BP systolic 96–128; BP diastolic 53–67; TEMP 97.7–98.1; O2SAT 95–100
[2023-10-29 07:19] LABS: CALCIUM, SERUM 11.1 mg/dL (8.5-10.1); CARBON DIOXIDE 31 mmol/L (21-32); CHLORIDE 98 mmol/L (98-107); GLUCOSE 110 mg/dL (74-106); POTASSIUM 3.3 mmol/L (3.5-5.1); SODIUM SERUM 136 mmol/L (136-145); UREA NITROGEN, BLOOD 72 mg/dL (7-18)
[2023-10-29] MEDS: POTASSIUM CHLORIDE 20 MEQ POWDER PACKET NG SCH (16:50)
[2023-10-30] VITALS (11 sets, daily range): BP systolic 105; BP diastolic 60; TEMP 98.1; O2SAT 95–99
[2023-10-30 07:05] LABS: CALCIUM, SERUM 11.5 mg/dL (8.5-10.1); CREATININE 1.1 mg/dL (0.6-1.3); POTASSIUM 3.8 mmol/L (3.5-5.1)
[2023-10-31] VITALS (17 sets, daily range): BP systolic 100–107; BP diastolic 58–76; TEMP 98.6–100.2; O2SAT 95–100
[2023-10-31 07:24] LABS: POTASSIUM 3.6 mmol/L (3.5-5.1)
[2023-10-31 16:32] LABS: BASOPHILS # (AUTO) 0.1 K/uL (0.0-0.2); BASOPHILS % (AUTO) 0.7 % (0.0-2.0); EOSINOPHILS # (AUTO) 0.1 K/uL (0.0-0.7); EOSINOPHILS % (AUTO) 0.5 % (0.0-6.0); HEMATOCRIT 33 % (39-51); LYMPHOCYTES # (AUTO) 0.6 K/uL (0.8-4.8); LYMPHOCYTES % (AUTO) 4.4 % (20.0-44.0); MEAN CORPUSCULAR HEMOGLOBIN 30 PG (26.0-33.0); MEAN CORPUSCULAR HGB CONC 34 g/dl (31.0-36.0); MEAN CORPUSCULAR VOLUME 89 fL (80-96); MONOCYTES # (AUTO) 2.2 K/uL (0.1-1.30); MONOCYTES % (AUTO) 16.3 % (2.0-12.0); NEUTROPHILS # (AUTO) 10.7 K/uL (1.8-8.9); NEUTROPHILS % (AUTO) 78.1 % (43.0-81.0); PLATELET COUNT (AUTO) 147 K/uL (150-450); RED BLOOD CELL COUNT(AUTO) 3.67 MIL/uL (4.5-6.0); RED CELL DISTRIBUTION WIDTH 14.7 % (11.5-15.0); WHITE BLOOD COUNT (AUTO) 13.7 K/uL (4.3-11.0)
[2023-10-31 17:31] LABS: BAND % (MANUAL) 2 % (0.0-5.0)
[2023-10-31 17:32] LABS: LYMPHOCYTES % (MANUAL) 10 % (16-48); MONOCYTES % (MANUAL) 8 % (0-11.0); NEUTROPHILS % (MANUAL) 80 (42-76)
[2023-10-31 17:33] LABS: PLATELET ESTIMATE DECREASED
[2023-10-31] MEDS: IV NS 0.9% 1,000 ML IV PRN (18:15)
[2023-10-31 20:06] LABS: APPEARANCE,URINE CLEAR (CLEAR); BILIRUBIN,URINE NEGATIVE (NEGATIVE); BLOOD, URINE NEGATIVE Ery/uL (NEGATIVE); COLOR,URINE YELLOW (YELLOW); KETONES,URINE NEGATIVE (NEGATIVE); LEUKOCYTE ESTERASE ,URINE NEGATIVE (NEGATIVE); NITRITE, URINE NEGATIVE (NEGATIVE); PROTEIN,URINE NEGATIVE (NEGATIVE); UGLUCOSE NEGATIVE (NEGATIVE); UROBILINOGEN,URINE 0.2 EU/dL (0.2)
[2023-11-01] VITALS (13 sets, daily range): BP systolic 99–104; BP diastolic 58–87; TEMP 99.1–99.3; O2SAT 94–100
[2023-11-02] VITALS (15 sets, daily range): BP systolic 96; BP diastolic 57; TEMP 97.7; O2SAT 96–100
[2023-11-02 15:21] LABS: BASOPHILS % (AUTO) 0.5 % (0.0-2.0); EOSINOPHILS # (AUTO) 0.5 K/uL (0.0-0.7); RED CELL DISTRIBUTION WIDTH 14.8 % (11.5-15.0)
[2023-11-02 15:26] LABS: EOSINOPHILS % (AUTO) 5.2 % (0.0-6.0); HEMATOCRIT 30 % (39-51); HEMOGLOBIN 9.7 g/dL (13.5-17.5); LYMPHOCYTES # (AUTO) 0.5 K/uL (0.8-4.8); LYMPHOCYTES % (AUTO) 5.1 % (20.0-44.0); MEAN CORPUSCULAR HEMOGLOBIN 30 PG (26.0-33.0); MEAN CORPUSCULAR HGB CONC 33 g/dl (31.0-36.0); MEAN CORPUSCULAR VOLUME 90 fL (80-96); MONOCYTES % (AUTO) 10.7 % (2.0-12.0); NEUTROPHILS % (AUTO) 78.5 % (43.0-81.0); PLATELET COUNT (AUTO) 129 K/uL (150-450); RED BLOOD CELL COUNT(AUTO) 3.28 MIL/uL (4.5-6.0)
[2023-11-02 15:35] LABS: ALANINE AMINOTRANSFERASE 17 U/L (12-78); ALKALINE PHOSPHATASE 73 U/L (46-116); ASPARTATE AMINOTRANSFERASE 9 U/L (15-37); BILIRUBIN,TOTAL 0.4 mg/dL (0.2-1.0); CARBON DIOXIDE 28 mmol/L (21-32); CHLORIDE 103 mmol/L (98-107); CREATININE 0.8 mg/dL (0.6-1.3); GLUCOSE 117 mg/dL (74-106); POTASSIUM 3.5 mmol/L (3.5-5.1); SODIUM SERUM 139 mmol/L (136-145); TOTAL PROTEIN, SERUM 6.7 g/dL (6.4-8.2); UREA NITROGEN, BLOOD 53 mg/dL (7-18)
[2023-11-03] VITALS (17 sets, daily range): BP systolic 100–114; BP diastolic 59–78; TEMP 97.5–101.5; O2SAT 94–98
[2023-11-03] MEDS: IV NS 0.9% 1,000 ML IV PRN (13:31)
[2023-11-04] VITALS (14 sets, daily range): BP systolic 112–123; BP diastolic 63–69; TEMP 98.3–98.6; O2SAT 96–100
[2023-11-05] VITALS (11 sets, daily range): BP systolic 102–119; BP diastolic 73–80; TEMP 98.1; O2SAT 95–99
[2023-11-05 08:21] LABS: CALCIUM, SERUM 10.3 mg/dL (8.5-10.1); CARBON DIOXIDE 24 mmol/L (21-32); CHLORIDE 105 mmol/L (98-107); CREATININE 0.8 mg/dL (0.6-1.3); GLUCOSE 134 mg/dL (74-106); POTASSIUM 3.4 mmol/L (3.5-5.1); SODIUM SERUM 139 mmol/L (136-145); UREA NITROGEN, BLOOD 30 mg/dL (7-18)
[2023-11-05] MEDS: POTASSIUM CHLORIDE 20 MEQ POWDER PACKET NG SCH (15:30)
[2023-11-05 17:42] LABS: BASOPHILS # (AUTO) 0.1 K/uL (0.0-0.2); BASOPHILS % (AUTO) 0.6 % (0.0-2.0); EOSINOPHILS # (AUTO) 0.3 K/uL (0.0-0.7); EOSINOPHILS % (AUTO) 3.1 % (0.0-6.0); HEMATOCRIT 30 % (39-51); LYMPHOCYTES # (AUTO) 0.5 K/uL (0.8-4.8); LYMPHOCYTES % (AUTO) 4.9 % (20.0-44.0); MEAN CORPUSCULAR HEMOGLOBIN 30 PG (26.0-33.0); MEAN CORPUSCULAR HGB CONC 33 g/dl (31.0-36.0); MEAN CORPUSCULAR VOLUME 89 fL (80-96); MONOCYTES % (AUTO) 9.6 % (2.0-12.0); NEUTROPHILS # (AUTO) 8.1 K/uL (1.8-8.9); NEUTROPHILS % (AUTO) 81.8 % (43.0-81.0); PLATELET COUNT (AUTO) 163 K/uL (150-450); RED BLOOD CELL COUNT(AUTO) 3.37 MIL/uL (4.5-6.0); WHITE BLOOD COUNT (AUTO) 9.9 K/uL (4.3-11.0)
[2023-11-05] MEDS: CEFTRIAXONE 1 G in IV D5W 50 ML IV SCH (20:01)
[2023-11-06 07:33] VITALS: BP 107/69; TEMP 97.9; O2SAT 99
[2023-11-06 10:16] VITALS: O2SAT 98
[2023-11-06 10:27] VITALS: O2SAT 98
[2023-11-06 20:26] VITALS: BP 130/72; TEMP 98.6; O2SAT 96
[2023-11-06 22:26] VITALS: O2SAT 96
[2023-11-07 07:43] VITALS: BP 113/65; TEMP 99.5; O2SAT 94
[2023-11-07 11:44] VITALS: O2SAT 98
[2023-11-07 11:45] VITALS: O2SAT 96
[2023-11-07 20:00] VITALS: BP 129/67; TEMP 98.1; O2SAT 99
[2023-11-07 22:29] VITALS: O2SAT 95
[2023-11-07 23:21] VITALS: O2SAT 97
[2023-11-08 10:03] VITALS: O2SAT 98
[2023-11-08 10:04] VITALS: O2SAT 98
[2023-11-08 15:49] VITALS: BP 154/80; TEMP 98.4; O2SAT 98
[2023-11-08 19:07] VITALS: BP 116/59; TEMP 99.7; O2SAT 100
[2023-11-08] MEDS: DAKINS QUARTER STRENGTH (0.125%) 480 ML BOTTLE TOP SCH (21:32)
[2023-11-08] MEDS: Z GUARD REMEDY 4 OZ OINT TP SCH (21:32)
[2023-11-08] MEDS: VITAMINS A AND D 56.7 GM TUBE TP SCH (21:33)
[2023-11-09] VITALS (7 sets, daily range): BP systolic 110–119; BP diastolic 65–68; TEMP 99.1–99.7; O2SAT 98–100
[2023-11-09] MEDS: Z GUARD REMEDY 4 OZ OINT TP SCH (21:12)
[2023-11-09] MEDS: THERAHONEY GEL 1.5 OZ TUBE TP SCH (21:13)
[2023-11-10 07:21] VITALS: BP 106/69; TEMP 97.6; O2SAT 100
[2023-11-10 10:50] VITALS: O2SAT 100
[2023-11-10 10:51] VITALS: O2SAT 100
[2023-11-10 20:48] VITALS: BP 107/63; TEMP 98.4; O2SAT 100
[2023-11-10 23:11] VITALS: O2SAT 99
[2023-11-11 07:18] VITALS: BP 108/65; TEMP 97.8; O2SAT 99
[2023-11-11 10:04] VITALS: O2SAT 98
[2023-11-11 19:32] VITALS: BP 139/61; TEMP 99.5; O2SAT 97
[2023-11-11 23:37] VITALS: O2SAT 97
[2023-11-12 07:36] VITALS: BP 108/83; TEMP 98.1; O2SAT 99
[2023-11-12 10:10] VITALS: O2SAT 100
[2023-11-12 19:49] VITALS: BP 101/57; TEMP 98.6; O2SAT 100
[2023-11-12 22:04] VITALS: O2SAT 97
[2023-11-13 07:38] VITALS: BP 119/68; TEMP 98.2; O2SAT 98
[2023-11-13 10:05] VITALS: O2SAT 97
[2023-11-13 17:27] LABS: ABG BASE EXCESS 2.7 mmol/L; ABG OXYGEN SATURATION 96.3 % (92.0-98.5); ABG PCO2 34.6 mmHg (35.0-45.0); ABG PH 7.491 (7.350-7.450); ABG PO2 83.9 mmHg (75.0-100.0); ABG TOTAL HEMOGLOBIN 11.1 G/dL (13.5-18.0); AaDO2 89.3 mmHg; COHb 0.3 % (0.5-1.5); MetHb 0.1 % (0.0-1.5); O2Hb 95.9 % (94.0-97.0); PEEP,BG 5 cm H2O; SITE, ABG Left Radial; VENT MODE, BG SIMV PS 12 @ 30%; VT, ABG 500 mL
[2023-11-13 21:25] VITALS: BP 126/65; TEMP 98.6; O2SAT 95
[2023-11-13 22:41] VITALS: O2SAT 95
[2023-11-13 22:42] VITALS: O2SAT 95
[2023-11-14 07:25] VITALS: BP 114/65; TEMP 98.2; O2SAT 100
[2023-11-14 10:03] VITALS: O2SAT 97
[2023-11-14 10:04] VITALS: O2SAT 98
[2023-11-14 19:40] VITALS: O2SAT 95
[2023-11-14 21:22] VITALS: BP 114/71; TEMP 98.6; O2SAT 96
[2023-11-14 23:19] VITALS: O2SAT 95
[2023-11-15 07:22] LABS: ALBUMIN 2.2 g/dL (3.4-5.0); BILIRUBIN,TOTAL 0.4 mg/dL (0.2-1.0); CALCIUM, SERUM 10.8 mg/dL (8.5-10.1); MAGNESIUM 2.4 mg/dL (1.8-2.4); PHOSPHORUS 4.2 mg/dL (2.5-4.9); POTASSIUM 3.9 mmol/L (3.5-5.1); TOTAL PROTEIN, SERUM 7.2 g/dL (6.4-8.2)
[2023-11-15 07:33] VITALS: BP 100/65; TEMP 98.1; O2SAT 98
[2023-11-15 10:22] VITALS: O2SAT 99
[2023-11-15 19:10] VITALS: BP 134/75; TEMP 99.7; O2SAT 98
[2023-11-15 19:51] VITALS: O2SAT 99
[2023-11-15] MEDS: NYSTATIN/TRIAMCIN 15 GM CREAM 15 GM TUBE TP SCH (21:52)
[2023-11-15 22:57] VITALS: O2SAT 99
[2023-11-16 08:17] VITALS: BP 124/68; TEMP 98.4; O2SAT 98
[2023-11-16 10:02] VITALS: O2SAT 100
[2023-11-16] MEDS: IV NS 0.9% 1,000 ML IV PRN (15:30)
[2023-11-16 19:06] VITALS: BP 95/60; TEMP 98.8; O2SAT 100
[2023-11-16 23:40] VITALS: O2SAT 100
[2023-11-17 08:35] VITALS: BP 112/76; TEMP 99; O2SAT 98
[2023-11-17 10:06] VITALS: O2SAT 99
[2023-11-17 10:07] VITALS: O2SAT 99
[2023-11-17 19:15] VITALS: BP 115/74; TEMP 99.7; O2SAT 99
[2023-11-17 23:20] VITALS: O2SAT 97
[2023-11-18 08:15] VITALS: BP 95/66; TEMP 99.7; O2SAT 99
[2023-11-18 10:00] VITALS: O2SAT 99
[2023-11-18 11:16] VITALS: O2SAT 99
[2023-11-18 12:44] VITALS: BP 103/57; TEMP 98.7; O2SAT 99
[2023-11-18 19:02] VITALS: BP 100/65; TEMP 98.8; O2SAT 99
[2023-11-18 23:22] VITALS: O2SAT 98
[2023-11-19 07:01] VITALS: BP 109/56; TEMP 99; O2SAT 96
[2023-11-19 07:27] LABS: CALCIUM, SERUM 10.1 mg/dL (8.5-10.1); CREATININE 0.8 mg/dL (0.6-1.3); POTASSIUM 3.5 mmol/L (3.5-5.1)
[2023-11-19 10:22] VITALS: O2SAT 100
[2023-11-19 19:57] VITALS: BP 134/68; TEMP 98.2; TEMP 99; O2SAT 99
[2023-11-19] MEDS: THERAHONEY GEL 1.5 OZ TUBE TP SCH (20:45)
[2023-11-19] MEDS: Z GUARD REMEDY 4 OZ OINT TP SCH (20:45)
[2023-11-19 23:36] VITALS: O2SAT 99
[2023-11-20 07:30] VITALS: BP 107/60; TEMP 97.9; O2SAT 99
[2023-11-20 10:00] VITALS: O2SAT 99
[2023-11-20 10:55] VITALS: O2SAT 99
[2023-11-20] MEDS: ACETAMINOPHEN 650 MG/20.3 ML UDC PO PRN (16:00)
[2023-11-20 19:27] LABS: BASOPHILS # (AUTO) 0.1 K/uL (0.0-0.2); BASOPHILS % (AUTO) 0.9 % (0.0-2.0); EOSINOPHILS # (AUTO) 0.3 K/uL (0.0-0.7); EOSINOPHILS % (AUTO) 2.4 % (0.0-6.0); HEMATOCRIT 25 % (39-51); HEMOGLOBIN 8.4 g/dL (13.5-17.5); LYMPHOCYTES # (AUTO) 0.5 K/uL (0.8-4.8); LYMPHOCYTES % (AUTO) 3.8 % (20.0-44.0); MEAN CORPUSCULAR HEMOGLOBIN 29 PG (26.0-33.0); MEAN CORPUSCULAR HGB CONC 33 g/dl (31.0-36.0); MEAN CORPUSCULAR VOLUME 88 fL (80-96); MONOCYTES # (AUTO) 1.5 K/uL (0.1-1.30); MONOCYTES % (AUTO) 11.7 % (2.0-12.0); NEUTROPHILS # (AUTO) 10.1 K/uL (1.8-8.9); NEUTROPHILS % (AUTO) 81.2 % (43.0-81.0); PLATELET COUNT (AUTO) 183 K/uL (150-450); RED BLOOD CELL COUNT(AUTO) 2.87 MIL/uL (4.5-6.0); RED CELL DISTRIBUTION WIDTH 15.3 % (11.5-15.0); WHITE BLOOD COUNT (AUTO) 12.5 K/uL (4.3-11.0)
[2023-11-20 19:44] VITALS: BP 124/68; TEMP 99.5; O2SAT 99
[2023-11-20 22:12] VITALS: O2SAT 99
[2023-11-21 06:47] LABS: ABG BASE EXCESS -0.5 mmol/L; ABG PCO2 31.6 mmHg (35.0-45.0); ABG PO2 105.2 mmHg (75.0-100.0); ABG TOTAL HEMOGLOBIN 12.2 G/dL (13.5-18.0); AaDO2 71.6 mmHg; COHb 0.3 % (0.5-1.5); MetHb 0.2 % (0.0-1.5); O2Hb 97.5 % (94.0-97.0); SITE, ABG Right Radial; VENT MODE, BG 15LPM NRB
[2023-11-21 10:09] VITALS: O2SAT 92; O2SAT 96
[2023-11-21 11:26] LABS: APPEARANCE,URINE CLEAR (CLEAR); BILIRUBIN,URINE NEGATIVE (NEGATIVE); BLOOD, URINE NEGATIVE Ery/uL (NEGATIVE); COLOR,URINE YELLOW (YELLOW); KETONES,URINE NEGATIVE (NEGATIVE); LEUKOCYTE ESTERASE ,URINE NEGATIVE (NEGATIVE); NITRITE, URINE NEGATIVE (NEGATIVE); PH,URINE 5.5 (5.0-8.0); PROTEIN,URINE TRACE mg/dl (NEGATIVE); UGLUCOSE NEGATIVE (NEGATIVE); UROBILINOGEN,URINE 0.2 EU/dL (0.2)
[2023-11-21 20:08] VITALS: BP 92/59; TEMP 99.1; O2SAT 98
[2023-11-21 22:24] VITALS: O2SAT 99
[2023-11-21 23:33] VITALS: O2SAT 99
[2023-11-22] VITALS (8 sets, daily range): BP systolic 104–120; BP diastolic 54–73; TEMP 99.9–101.5; O2SAT 92–99
[2023-11-22] MEDS: BACI/NEOM/POLY B OINT PKT 1 UDPKT PACKET TP SCH (09:03)
[2023-11-22 11:00] LABS: BASOPHILS % (AUTO) 0.3 % (0.0-2.0); EOSINOPHILS # (AUTO) 0.3 K/uL (0.0-0.7); EOSINOPHILS % (AUTO) 2.5 % (0.0-6.0); HEMATOCRIT 25 % (39-51); HEMOGLOBIN 8.2 g/dL (13.5-17.5); LYMPHOCYTES # (AUTO) 0.3 K/uL (0.8-4.8); MEAN CORPUSCULAR HEMOGLOBIN 29 PG (26.0-33.0); MEAN CORPUSCULAR HGB CONC 33 g/dl (31.0-36.0); MEAN CORPUSCULAR VOLUME 87 fL (80-96); MONOCYTES # (AUTO) 1.1 K/uL (0.1-1.30); MONOCYTES % (AUTO) 9.5 % (2.0-12.0); NEUTROPHILS # (AUTO) 9.5 K/uL (1.8-8.9); NEUTROPHILS % (AUTO) 84.7 % (43.0-81.0); PLATELET COUNT (AUTO) 190 K/uL (150-450); RED BLOOD CELL COUNT(AUTO) 2.86 MIL/uL (4.5-6.0); RED CELL DISTRIBUTION WIDTH 15.7 % (11.5-15.0); WHITE BLOOD COUNT (AUTO) 11.2 K/uL (4.3-11.0)
[2023-11-22 11:08] LABS: CALCIUM, SERUM 10.8 mg/dL (8.5-10.1); CARBON DIOXIDE 25 mmol/L (21-32); CHLORIDE 100 mmol/L (98-107); CREATININE 1.1 mg/dL (0.6-1.3); GLUCOSE 152 mg/dL (74-106); POTASSIUM 3.6 mmol/L (3.5-5.1); SODIUM SERUM 136 mmol/L (136-145)
[2023-11-22 11:09] LABS: UREA NITROGEN, BLOOD 81 mg/dL (7-18)
[2023-11-22] MEDS: CEFEPIME 1 GM in IV D5W 50 ML IV SCH (13:30)
[2023-11-22] MEDS: IV NS 0.9% 1,000 ML IV PRN (13:30)
[2023-11-22] MEDS: VANCOMYCIN 1 GM in IV D5W 250ml IV ONE (14:13)
[2023-11-23] VITALS (7 sets, daily range): BP systolic 97–103; BP diastolic 61–63; TEMP 99–102; O2SAT 97–100
[2023-11-23] MEDS: VANCOMYCIN 500 MG in IV D5W 100ml IV SCH (01:49)
[2023-11-23 07:35] LABS: CALCIUM, SERUM 10.5 mg/dL (8.5-10.1); CARBON DIOXIDE 24 mmol/L (21-32); CHLORIDE 99 mmol/L (98-107); GLUCOSE 129 mg/dL (74-106); POTASSIUM 3.3 mmol/L (3.5-5.1); SODIUM SERUM 134 mmol/L (136-145); UREA NITROGEN, BLOOD 78 mg/dL (7-18)
[2023-11-23 07:42] LABS: BASOPHILS % (AUTO) 0.4 % (0.0-2.0); EOSINOPHILS # (AUTO) 0.3 K/uL (0.0-0.7); EOSINOPHILS % (AUTO) 2.7 % (0.0-6.0); HEMATOCRIT 24 % (39-51); HEMOGLOBIN 7.9 g/dL (13.5-17.5); LYMPHOCYTES # (AUTO) 0.3 K/uL (0.8-4.8); LYMPHOCYTES % (AUTO) 2.8 % (20.0-44.0); MEAN CORPUSCULAR HEMOGLOBIN 29 PG (26.0-33.0); MEAN CORPUSCULAR HGB CONC 33 g/dl (31.0-36.0); MEAN CORPUSCULAR VOLUME 87 fL (80-96); MONOCYTES # (AUTO) 1.2 K/uL (0.1-1.30); MONOCYTES % (AUTO) 12.2 % (2.0-12.0); NEUTROPHILS # (AUTO) 8.2 K/uL (1.8-8.9); NEUTROPHILS % (AUTO) 81.9 % (43.0-81.0); PLATELET COUNT (AUTO) 180 K/uL (150-450); RED BLOOD CELL COUNT(AUTO) 2.72 MIL/uL (4.5-6.0); RED CELL DISTRIBUTION WIDTH 15.5 % (11.5-15.0)
[2023-11-23] MEDS: POTASSIUM CHLORIDE 20 MEQ POWDER PACKET NG SCH (11:27)
[2023-11-23] MEDS ORDERED: POTASSIUM CHLORIDE 20 MEQ POWDER PACKET GT ONE (12:00)
[2023-11-24 05:33] VITALS: TEMP 98.8
[2023-11-24 07:01] VITALS: BP 94/79; TEMP 99; O2SAT 99
[2023-11-24 07:40] LABS: CALCIUM, SERUM 9.9 mg/dL (8.5-10.1); CREATININE 0.8 mg/dL (0.6-1.3); POTASSIUM 3.6 mmol/L (3.5-5.1)
[2023-11-24] MEDS ORDERED: THERAHONEY GEL 1.5 OZ TUBE TP SCH (09:00)
[2023-11-24] MEDS: THERAHONEY GEL 1.5 OZ TUBE TP SCH (09:02)
[2023-11-24 10:00] VITALS: O2SAT 99
[2023-11-24 11:08] VITALS: O2SAT 99
[2023-11-24 22:20] VITALS: O2SAT 98
[2023-11-25 06:56] VITALS: BP 131/67; TEMP 99; O2SAT 99
[2023-11-25 07:48] LABS: CALCIUM, SERUM 9.6 mg/dL (8.5-10.1); CREATININE 0.7 mg/dL (0.6-1.3); POTASSIUM 3.4 mmol/L (3.5-5.1)
[2023-11-25] MEDS: CEFEPIME 1 GM in IV D5W 50 ML IV SCH (09:00)
[2023-11-25 10:00] VITALS: O2SAT 99
[2023-11-25 10:01] VITALS: O2SAT 99
[2023-11-25] MEDS: POTASSIUM CHLORIDE 20 MEQ POWDER PACKET GT ONE (13:21)
[2023-11-25] MEDS: VANCOMYCIN 500 MG in IV D5W 100ml IV SCH (14:12)
[2023-11-25 20:00] VITALS: BP 112/70; TEMP 98.1; O2SAT 99
[2023-11-25 22:11] VITALS: O2SAT 99
[2023-11-26] VITALS (7 sets, daily range): BP systolic 109–129; BP diastolic 60–71; RESP 29; TEMP 98.7–99; O2SAT 97–99
[2023-11-26 07:49] LABS: CALCIUM, SERUM 9.7 mg/dL (8.5-10.1); CREATININE 0.7 mg/dL (0.6-1.3); POTASSIUM 3.9 mmol/L (3.5-5.1)
[2023-11-27 07:26] LABS: CREATININE 0.7 mg/dL (0.6-1.3); POTASSIUM 3.7 mmol/L (3.5-5.1)
[2023-11-27 08:03] VITALS: BP 129/70; TEMP 99; O2SAT 96
[2023-11-27 10:21] VITALS: O2SAT 96
[2023-11-27 10:22] VITALS: O2SAT 96
[2023-11-27 21:16] VITALS: BP 120/65; TEMP 99; O2SAT 100
[2023-11-27 22:32] VITALS: O2SAT 98
[2023-11-28 07:00] VITALS: BP 115/79; TEMP 98; O2SAT 98
[2023-11-28 10:11] VITALS: O2SAT 98
[2023-11-28 10:12] VITALS: O2SAT 96
[2023-11-28 10:20] LABS: CALCIUM, SERUM 10.1 mg/dL (8.5-10.1); CARBON DIOXIDE 25 mmol/L (21-32); CHLORIDE 106 mmol/L (98-107); CREATININE 0.7 mg/dL (0.6-1.3); GLUCOSE 107 mg/dL (74-106); POTASSIUM 3.9 mmol/L (3.5-5.1); SODIUM SERUM 140 mmol/L (136-145); UREA NITROGEN, BLOOD 46 mg/dL (7-18)
[2023-11-28 14:15] LABS: CREATININE 0.7 mg/dL (0.6-1.3)
[2023-11-28 20:00] VITALS: BP 135/81; TEMP 98.1; O2SAT 99
[2023-11-28 22:46] VITALS: O2SAT 100
[2023-11-28 22:48] VITALS: O2SAT 98
[2023-11-29 07:00] VITALS: BP 126/66; TEMP 98.4; O2SAT 100
[2023-11-29 11:33] VITALS: O2SAT 100
[2023-11-29 11:34] VITALS: O2SAT 100
[2023-11-29 21:25] VITALS: BP 98/54; TEMP 98.6; O2SAT 98
[2023-11-29 22:52] VITALS: O2SAT 100
[2023-11-29 23:24] VITALS: O2SAT 98
[2023-11-30 08:15] VITALS: BP 125/76; TEMP 98.8; O2SAT 100
[2023-11-30 10:16] VITALS: O2SAT 96
[2023-11-30 19:55] VITALS: BP 119/75; TEMP 98.5; O2SAT 99
[2023-11-30 23:20] VITALS: O2SAT 97
[2023-12-01 10:39] VITALS: O2SAT 98
[2023-12-01 10:40] VITALS: O2SAT 98
[2023-12-01 19:19] VITALS: BP 98/54; TEMP 99; O2SAT 98
[2023-12-01 23:20] VITALS: O2SAT 97
[2023-12-02 07:42] VITALS: BP 107/66; TEMP 99; O2SAT 98
[2023-12-02 10:00] VITALS: O2SAT 98
[2023-12-02 19:16] VITALS: BP 106/62; TEMP 99.5; O2SAT 98
[2023-12-02 23:52] VITALS: O2SAT 97
[2023-12-03 08:02] LABS: CALCIUM, SERUM 10.2 mg/dL (8.5-10.1); CARBON DIOXIDE 28 mmol/L (21-32); CHLORIDE 101 mmol/L (98-107); CREATININE 0.8 mg/dL (0.6-1.3); GLUCOSE 107 mg/dL (74-106); POTASSIUM 4.3 mmol/L (3.5-5.1); SODIUM SERUM 137 mmol/L (136-145); UREA NITROGEN, BLOOD 52 mg/dL (7-18)
[2023-12-03 08:11] VITALS: BP 112/59; TEMP 98.2; O2SAT 99
[2023-12-03 10:49] VITALS: O2SAT 98
[2023-12-03 10:51] VITALS: O2SAT 98
[2023-12-03 21:31] VITALS: BP 112/63; TEMP 98.4; O2SAT 98
[2023-12-03 23:15] VITALS: O2SAT 98
[2023-12-04 07:43] VITALS: BP 112/64; TEMP 98.4; O2SAT 100
[2023-12-04 10:29] VITALS: O2SAT 96
[2023-12-04 10:30] VITALS: O2SAT 98
[2023-12-04 20:55] VITALS: BP 121/66; TEMP 98.6; O2SAT 98
[2023-12-04 23:31] VITALS: O2SAT 98
[2023-12-04 23:32] VITALS: O2SAT 98
[2023-12-05 07:53] VITALS: BP 107/59; TEMP 98.8; O2SAT 97
[2023-12-05 10:12] VITALS: O2SAT 99
[2023-12-05 20:03] VITALS: BP 105/66; TEMP 99; O2SAT 98
[2023-12-05 22:23] VITALS: O2SAT 98
[2023-12-05 23:53] VITALS: O2SAT 100
[2023-12-06 07:56] VITALS: BP 118/58; TEMP 99; O2SAT 100
[2023-12-06 10:13] VITALS: O2SAT 98
[2023-12-06 10:14] VITALS: O2SAT 98
[2023-12-06 19:47] VITALS: BP 118/66; TEMP 99.1; O2SAT 99
[2023-12-06 23:34] VITALS: O2SAT 98
[2023-12-07] MEDS: OMEPRAZOLE 20 MG CAPSULE.DR GT SCH (05:47)
[2023-12-07 07:38] VITALS: BP 103/63; TEMP 99.1; O2SAT 97
[2023-12-07 10:29] VITALS: O2SAT 98
[2023-12-07 10:30] VITALS: O2SAT 98
[2023-12-07 19:09] VITALS: BP 110/64; TEMP 98.6; O2SAT 99
[2023-12-07 23:23] VITALS: O2SAT 97
[2023-12-08 07:23] VITALS: BP 112/72; TEMP 99; O2SAT 98
[2023-12-08 10:34] VITALS: O2SAT 98
[2023-12-08 19:52] VITALS: BP 105/55; TEMP 99.5; O2SAT 97
[2023-12-08 22:39] VITALS: O2SAT 98
[2023-12-09 07:26] VITALS: BP 107/66; TEMP 98.1; O2SAT 98
[2023-12-09 10:05] VITALS: O2SAT 99
[2023-12-09 20:00] VITALS: BP 113/58; TEMP 98.1; O2SAT 99
[2023-12-09 22:32] VITALS: O2SAT 96
[2023-12-10 07:59] VITALS: BP 114/68; TEMP 98.2; O2SAT 99
[2023-12-10 09:14] LABS: CREATININE 0.9 mg/dL (0.6-1.3)
[2023-12-10 09:29] LABS: CARBON DIOXIDE 29 mmol/L (21-32); CHLORIDE 100 mmol/L (98-107); POTASSIUM 3.9 mmol/L (3.5-5.1); SODIUM SERUM 138 mmol/L (136-145); UREA NITROGEN, BLOOD 86 mg/dL (7-18)
[2023-12-10 09:30] LABS: CALCIUM, SERUM 10.9 mg/dL (8.5-10.1); GLUCOSE 109 mg/dL (74-106)
[2023-12-10 10:01] VITALS: O2SAT 97
[2023-12-10] MEDS: IV NS 0.9% 1,000 ML IV PRN (13:00)
[2023-12-10 20:00] VITALS: BP 126/71; TEMP 98.4; O2SAT 99
[2023-12-10 22:43] VITALS: O2SAT 98
[2023-12-11 07:36] VITALS: BP 111/67; TEMP 98.2; O2SAT 100
[2023-12-11 10:25] VITALS: O2SAT 99
[2023-12-11 10:26] VITALS: O2SAT 100
[2023-12-11 21:30] VITALS: BP 119/79; TEMP 98.6; O2SAT 100
[2023-12-11 22:40] VITALS: O2SAT 98
[2023-12-12 07:41] VITALS: BP 115/60; TEMP 98.6; O2SAT 99
[2023-12-12 10:06] VITALS: O2SAT 99
[2023-12-12 20:04] VITALS: BP 127/78; TEMP 98.8; O2SAT 97
[2023-12-12 23:24] VITALS: O2SAT 99
[2023-12-13 07:23] VITALS: BP 101/58; TEMP 98.8; O2SAT 97
[2023-12-13 10:06] VITALS: O2SAT 98
[2023-12-13 19:42] VITALS: BP 122/69; TEMP 98.4; O2SAT 98
[2023-12-13 20:39] VITALS: O2SAT 98
[2023-12-13 23:59] VITALS: O2SAT 96
[2023-12-14 05:21] VITALS: BP 104/56; O2SAT 95
[2023-12-14 07:10] VITALS: BP 95/63; TEMP 98.1; O2SAT 97
[2023-12-14 10:41] VITALS: O2SAT 98; O2SAT 99
[2023-12-14 19:23] VITALS: BP 135/74; TEMP 98.4; O2SAT 98
[2023-12-14 23:31] VITALS: O2SAT 98
[2023-12-15 07:58] VITALS: BP 129/65; TEMP 98.1; O2SAT 98
[2023-12-15 10:09] VITALS: O2SAT 99
[2023-12-15 19:25] VITALS: BP 111/73; TEMP 97.5; O2SAT 97
[2023-12-15 23:16] VITALS: O2SAT 97
[2023-12-16 08:12] VITALS: BP 133/73; TEMP 98.1; O2SAT 100
[2023-12-16 10:15] VITALS: O2SAT 100
[2023-12-16 19:36] VITALS: BP 125/70; TEMP 98.6; O2SAT 98
[2023-12-16 22:33] VITALS: O2SAT 99
[2023-12-16 23:47] VITALS: O2SAT 99
[2023-12-17 08:04] LABS: CALCIUM, SERUM 10.2 mg/dL (8.5-10.1); CARBON DIOXIDE 29 mmol/L (21-32); CHLORIDE 102 mmol/L (98-107); CREATININE 0.8 mg/dL (0.6-1.3); GLUCOSE 97 mg/dL (74-106); POTASSIUM 3.7 mmol/L (3.5-5.1); SODIUM SERUM 139 mmol/L (136-145); UREA NITROGEN, BLOOD 60 mg/dL (7-18)
[2023-12-17 10:34] VITALS: O2SAT 100
[2023-12-17 20:04] VITALS: BP 112/69; TEMP 98.4; O2SAT 98
[2023-12-17] MEDS: NYSTATIN/TRIAMCIN 15 GM CREAM 15 GM TUBE TP SCH (20:45)
[2023-12-17 22:47] VITALS: O2SAT 98
[2023-12-18 08:02] VITALS: BP 103/65; TEMP 98.2; O2SAT 99
[2023-12-18] MEDS: VITAMINS A AND D 56.7 GM TUBE TP SCH (08:42)
[2023-12-18] MEDS: Z GUARD REMEDY 4 OZ OINT TP SCH (08:42)
[2023-12-18 10:22] VITALS: O2SAT 97; O2SAT 98
[2023-12-18 20:42] VITALS: BP 113/67; TEMP 98.4; O2SAT 99
[2023-12-18 22:24] VITALS: O2SAT 98
[2023-12-18 22:25] VITALS: O2SAT 98
[2023-12-19 07:20] VITALS: BP 97/63; TEMP 98.6; O2SAT 100
[2023-12-19 17:32] VITALS: O2SAT 98
[2023-12-19 20:29] VITALS: BP 129/75; TEMP 99; O2SAT 99
[2023-12-19 23:39] VITALS: O2SAT 98
[2023-12-20 07:23] VITALS: BP 96/62; TEMP 98.2; O2SAT 99
[2023-12-20 10:05] VITALS: O2SAT 99
[2023-12-20 19:46] VITALS: BP 108/69; TEMP 98.7; O2SAT 97
[2023-12-20 22:54] VITALS: O2SAT 97
[2023-12-20 22:55] VITALS: O2SAT 97
[2023-12-21 04:50] VITALS: TEMP 101.7; O2SAT 98
[2023-12-21] MEDS: ACETAMINOPHEN 650 MG/20.3 ML UDC GT PRN (04:50)
[2023-12-21 07:54] VITALS: BP 96/56; TEMP 98.4; O2SAT 99
[2023-12-21 10:04] VITALS: O2SAT 98
[2023-12-21 12:43] VITALS: BP 115/75; TEMP 98.4; O2SAT 98
[2023-12-21 21:54] VITALS: BP 95/64; TEMP 99; O2SAT 98
[2023-12-21 23:26] VITALS: O2SAT 99
[2023-12-22 07:33] VITALS: BP 106/67; TEMP 98.1; O2SAT 98
[2023-12-22 10:01] VITALS: O2SAT 98
[2023-12-22 20:54] VITALS: BP 101/64; TEMP 99.5; O2SAT 98
[2023-12-22 21:01] VITALS: BP 101/64; TEMP 99.5; O2SAT 98
[2023-12-22 22:21] VITALS: O2SAT 98
[2023-12-23 07:21] VITALS: BP 110/78; TEMP 99.2; O2SAT 95
[2023-12-23 10:01] VITALS: O2SAT 98
[2023-12-23 20:00] VITALS: BP 101/59; TEMP 98.1; O2SAT 99
[2023-12-23 23:44] VITALS: O2SAT 99
[2023-12-24 07:40] VITALS: BP 119/63; TEMP 99.1; O2SAT 98
[2023-12-24 10:02] VITALS: O2SAT 96; O2SAT 98
[2023-12-24 20:33] VITALS: BP 141/74; TEMP 98.1; O2SAT 99
[2023-12-24 22:48] VITALS: O2SAT 97
[2023-12-25 07:44] VITALS: BP 105/72; TEMP 98.2; O2SAT 98
[2023-12-25 10:32] VITALS: O2SAT 99
[2023-12-25 22:00] VITALS: BP 103/59; TEMP 98.8; O2SAT 99
[2023-12-25 22:43] VITALS: O2SAT 99
[2023-12-26 08:01] LABS: CALCIUM, SERUM 10.6 mg/dL (8.5-10.1); CARBON DIOXIDE 31 mmol/L (21-32); CHLORIDE 97 mmol/L (98-107); CREATININE 1.1 mg/dL (0.6-1.3); GLUCOSE 111 mg/dL (74-106); POTASSIUM 3.6 mmol/L (3.5-5.1); SODIUM SERUM 138 mmol/L (136-145)
[2023-12-26 08:12] LABS: UREA NITROGEN, BLOOD 94 mg/dL (7-18)
[2023-12-26 10:21] VITALS: O2SAT 98
[2023-12-26] MEDS: IV NS 0.9% 1,000 ML IV PRN (16:31)
[2023-12-26 20:59] VITALS: BP 112/65; TEMP 98.7; O2SAT 97
[2023-12-26 22:35] VITALS: O2SAT 99
[2023-12-26 23:47] VITALS: O2SAT 99
[2023-12-27 07:10] VITALS: BP 104/68; TEMP 97.7; O2SAT 99
[2023-12-27 10:38] VITALS: O2SAT 99
[2023-12-27 10:39] VITALS: O2SAT 99
[2023-12-27 15:14] VITALS: RESP 4; O2SAT 99
[2023-12-27 22:03] VITALS: O2SAT 99
[2023-12-28 07:30] VITALS: BP 103/65; TEMP 98.4; O2SAT 98
[2023-12-28 10:01] VITALS: O2SAT 98; O2SAT 99
[2023-12-28 19:06] VITALS: BP 111/63; TEMP 98.6; O2SAT 99
[2023-12-28 22:10] VITALS: O2SAT 100
[2023-12-29 07:26] VITALS: BP 122/61; TEMP 98.8; O2SAT 99
[2023-12-29 10:00] VITALS: O2SAT 99
[2023-12-29 11:10] VITALS: O2SAT 99
[2023-12-29 19:27] VITALS: BP 118/67; TEMP 99; O2SAT 100
[2023-12-29 22:19] VITALS: O2SAT 100
[2023-12-29 23:39] VITALS: O2SAT 98
[2023-12-30 07:31] VITALS: BP 106/59; TEMP 98.4; O2SAT 100
[2023-12-30 08:00] VITALS: O2SAT 98
[2023-12-30 19:22] VITALS: BP 111/74; TEMP 98.6; O2SAT 100
[2023-12-30 22:40] VITALS: O2SAT 100
[2023-12-31 07:05] VITALS: BP 119/65; TEMP 97.9; O2SAT 100
[2023-12-31 07:16] LABS: CALCIUM, SERUM 9.9 mg/dL (8.5-10.1); CARBON DIOXIDE 27 mmol/L (21-32); CHLORIDE 106 mmol/L (98-107); CREATININE 0.7 mg/dL (0.6-1.3); GLUCOSE 104 mg/dL (74-106); POTASSIUM 3.6 mmol/L (3.5-5.1); SODIUM SERUM 141 mmol/L (136-145); UREA NITROGEN, BLOOD 43 mg/dL (7-18)
[2023-12-31 10:04] VITALS: O2SAT 100
[2023-12-31 10:05] VITALS: O2SAT 100
[2023-12-31 20:00] VITALS: BP 99/69; TEMP 98; O2SAT 99
[2023-12-31 22:29] VITALS: O2SAT 99
[2024-01-01 07:22] VITALS: BP 115/74; TEMP 98.2; O2SAT 99
[2024-01-01 10:15] VITALS: O2SAT 100
[2024-01-01 20:00] VITALS: BP 114/66; TEMP 98.1; O2SAT 99
[2024-01-01 22:15] VITALS: O2SAT 99
[2024-01-02 10:15] VITALS: O2SAT 100
[2024-01-02 10:16] VITALS: O2SAT 100
[2024-01-02 16:35] VITALS: BP 125/79; TEMP 99.1; O2SAT 100
[2024-01-02 20:00] VITALS: BP 129/86; TEMP 98.1; O2SAT 99
[2024-01-02 22:37] VITALS: O2SAT 99
[2024-01-02 22:38] VITALS: O2SAT 100
[2024-01-03 06:53] VITALS: BP 98/59; TEMP 99.1; O2SAT 98
[2024-01-03 10:00] VITALS: O2SAT 99
[2024-01-03 10:01] VITALS: O2SAT 86
[2024-01-03 18:51] VITALS: BP 113/71; TEMP 99; O2SAT 100
[2024-01-03 22:27] VITALS: O2SAT 99
[2024-01-03 22:28] VITALS: O2SAT 99
[2024-01-04 07:30] VITALS: BP 106/62; TEMP 99.1; O2SAT 100
[2024-01-04 10:08] VITALS: O2SAT 100
[2024-01-04 10:09] VITALS: O2SAT 100
[2024-01-04 18:50] VITALS: BP 104/56; TEMP 99.3; O2SAT 100
[2024-01-04 22:00] VITALS: O2SAT 97
[2024-01-05] VITALS (9 sets, daily range): BP systolic 110–122; BP diastolic 57–72; TEMP 98.6–99.5; O2SAT 96–99
[2024-01-05 14:14] LABS: BASOPHILS # (AUTO) 0.1 K/uL (0.0-0.2); BASOPHILS % (AUTO) 0.9 % (0.0-2.0); EOSINOPHILS # (AUTO) 0.4 K/uL (0.0-0.7); EOSINOPHILS % (AUTO) 3.7 % (0.0-6.0); HEMATOCRIT 30 % (39-51); HEMOGLOBIN 9.6 g/dL (13.5-17.5); LYMPHOCYTES # (AUTO) 0.7 K/uL (0.8-4.8); LYMPHOCYTES % (AUTO) 5.9 % (20.0-44.0); MEAN CORPUSCULAR HEMOGLOBIN 27 PG (26.0-33.0); MEAN CORPUSCULAR HGB CONC 32 g/dl (31.0-36.0); MEAN CORPUSCULAR VOLUME 86 fL (80-96); MONOCYTES # (AUTO) 1.2 K/uL (0.1-1.30); MONOCYTES % (AUTO) 10.3 % (2.0-12.0); NEUTROPHILS # (AUTO) 8.8 K/uL (1.8-8.9); NEUTROPHILS % (AUTO) 79.2 % (43.0-81.0); PLATELET COUNT (AUTO) 217 K/uL (150-450); RED BLOOD CELL COUNT(AUTO) 3.49 MIL/uL (4.5-6.0); RED CELL DISTRIBUTION WIDTH 17.5 % (11.5-15.0); WHITE BLOOD COUNT (AUTO) 11.2 K/uL (4.3-11.0)
[2024-01-05 14:22] LABS: CALCIUM, SERUM 10.7 mg/dL (8.5-10.1); CARBON DIOXIDE 26 mmol/L (21-32); CHLORIDE 99 mmol/L (98-107); CREATININE 0.9 mg/dL (0.6-1.3); GLUCOSE 125 mg/dL (74-106); POTASSIUM 4.3 mmol/L (3.5-5.1); SODIUM SERUM 134 mmol/L (136-145); UREA NITROGEN, BLOOD 65 mg/dL (7-18)
[2024-01-05 16:24] LABS: APPEARANCE,URINE CLEAR (CLEAR); BILIRUBIN,URINE NEGATIVE (NEGATIVE); BLOOD, URINE TRACE Ery/uL (NEGATIVE); COLOR,URINE YELLOW (YELLOW); KETONES,URINE NEGATIVE (NEGATIVE); LEUKOCYTE ESTERASE ,URINE TRACE (NEGATIVE); NITRITE, URINE NEGATIVE (NEGATIVE); PH,URINE 7.5 (5.0-8.0); PROTEIN,URINE NEGATIVE (NEGATIVE); UGLUCOSE NEGATIVE (NEGATIVE); UROBILINOGEN,URINE 0.2 EU/dL (0.2)
[2024-01-05 16:29] LABS: ADD URINE CULTURE NO; BACTERIA,URINE RARE /HPF (None Seen)
[2024-01-05 17:26] LABS: ANISOCYTOSIS 1+; EOSINOPHILS % (MANUAL) 6 % (0-4); LYMPHOCYTES % (MANUAL) 4 % (16-48); MONOCYTES % (MANUAL) 5 % (0-11.0); NEUTROPHILS % (MANUAL) 85 (42-76); PLATELET ESTIMATE ADEQUATE
[2024-01-05] MEDS ORDERED: LEVOFLOXACIN 500 MG /D5W 100ML 500 MG in PREMIX 1 EA IV SCH (19:00)
[2024-01-05] MEDS: LEVOFLOXACIN 500 MG /D5W 100ML 500 MG in PREMIX 1 EA IV SCH (20:43)
[2024-01-06 06:34] VITALS: BP 100/58; TEMP 98.9; O2SAT 97
[2024-01-06 07:36] VITALS: BP 102/68; TEMP 99.3; O2SAT 97
[2024-01-06 19:56] VITALS: BP 114/63; TEMP 98.1; O2SAT 99
[2024-01-06 23:15] VITALS: O2SAT 98
[2024-01-07] VITALS (8 sets, daily range): BP systolic 104–119; BP diastolic 58–66; TEMP 98.1–98.8; O2SAT 94–100
[2024-01-07 07:51] LABS: CALCIUM, SERUM 10.5 mg/dL (8.5-10.1); CARBON DIOXIDE 24 mmol/L (21-32); CHLORIDE 97 mmol/L (98-107); GLUCOSE 116 mg/dL (74-106); POTASSIUM 4.1 mmol/L (3.5-5.1); SODIUM SERUM 134 mmol/L (136-145); UREA NITROGEN, BLOOD 64 mg/dL (7-18)
[2024-01-07 15:23] LABS: ABG BASE EXCESS 4.4 mmol/L (-2.0-2.0); ABG OXYGEN SATURATION 92.1 % (92.0-98.5); ABG PCO2 37.3 mmHg (35.0-45.0); ABG PH 7.491 (7.340-7.440); ABG TOTAL HEMOGLOBIN 10.4 G/dL (14.0-18.0); AaDO2 106.1 mmHg; COHb 0.3 % (0.5-1.5); MetHb 0.3 % (0.0-1.5); O2Hb 91.5 % (94.0-97.0); SITE, ABG Right Brachial; VENT MODE, BG c/a @30%
[2024-01-08 07:30] VITALS: BP 108/62; TEMP 98.6; O2SAT 96
[2024-01-08 10:05] VITALS: O2SAT 98
[2024-01-08] MEDS: ACETYLCYSTEINE 10% SOLN 400 MG/4 ML VIAL NEB SCH (19:30)
[2024-01-08 19:39] VITALS: BP 108/55; TEMP 98.4; O2SAT 99
[2024-01-08 23:23] VITALS: O2SAT 98
[2024-01-09 07:18] VITALS: BP 100/62; TEMP 98.1; O2SAT 98
[2024-01-09 10:12] VITALS: O2SAT 97
[2024-01-09 20:48] VITALS: BP 108/61; TEMP 97.6; O2SAT 100
[2024-01-09 22:32] VITALS: O2SAT 98; O2SAT 99
[2024-01-10 07:22] VITALS: BP 101/68; TEMP 98.1; O2SAT 100
[2024-01-10 10:10] VITALS: O2SAT 98
[2024-01-10 20:35] VITALS: BP 120/68; TEMP 99.1; O2SAT 100
[2024-01-11] VITALS (7 sets, daily range): BP systolic 102–112; BP diastolic 58–68; TEMP 98.2–100.5; O2SAT 97–100
[2024-01-12 07:44] VITALS: BP 110/70; TEMP 97.9; O2SAT 100
[2024-01-12 10:27] VITALS: O2SAT 99
[2024-01-12 11:33] VITALS: O2SAT 99
[2024-01-12 18:50] VITALS: BP 96/60; TEMP 99.1; O2SAT 99
[2024-01-12 23:22] VITALS: O2SAT 96
[2024-01-13 07:32] VITALS: BP 114/66; TEMP 98.8; O2SAT 99
[2024-01-13 10:06] VITALS: O2SAT 98
[2024-01-13 19:06] VITALS: BP 122/72; TEMP 98.4; O2SAT 99
[2024-01-13 23:20] VITALS: O2SAT 97
[2024-01-14 07:45] LABS: CALCIUM, SERUM 11.5 mg/dL (8.5-10.1); CARBON DIOXIDE 30 mmol/L (21-32); CHLORIDE 99 mmol/L (98-107); CREATININE 0.9 mg/dL (0.6-1.3); GLUCOSE 106 mg/dL (74-106); POTASSIUM 3.7 mmol/L (3.5-5.1); SODIUM SERUM 136 mmol/L (136-145); UREA NITROGEN, BLOOD 70 mg/dL (7-18)
[2024-01-14 10:01] VITALS: O2SAT 98
[2024-01-14] MEDS: BACLOFEN 5 MG GT SCH (17:10)
[2024-01-14 19:49] VITALS: BP 106/64; TEMP 98.6; O2SAT 97
[2024-01-14 23:07] VITALS: O2SAT 98
[2024-01-15 07:11] VITALS: BP 128/72; TEMP 98.6; O2SAT 95
[2024-01-15 10:56] VITALS: O2SAT 94
[2024-01-15 10:57] VITALS: O2SAT 95
[2024-01-15 21:59] VITALS: BP 122/67; TEMP 98.8; O2SAT 96
[2024-01-15 23:45] VITALS: O2SAT 98
[2024-01-16 07:37] VITALS: BP 97/67; TEMP 98.1; O2SAT 96
[2024-01-16 10:25] VITALS: O2SAT 98
[2024-01-16 10:26] VITALS: O2SAT 98
[2024-01-16 19:07] VITALS: BP 116/73; TEMP 99.1; O2SAT 95
[2024-01-16 22:02] VITALS: O2SAT 98
[2024-01-16 23:44] VITALS: O2SAT 98
[2024-01-17 07:27] VITALS: BP 113/73; TEMP 98.1; O2SAT 99
[2024-01-17] MEDS: VITS A AND D/WHITE PET/LANOLIN 5 GM PACKET TP SCH (09:32)
[2024-01-17] MEDS: NYSTATIN/TRIAMCIN 15 GM CREAM 15 GM TUBE TP SCH (09:32)
[2024-01-17] MEDS: Z GUARD REMEDY 4 OZ OINT TP SCH (09:32)
[2024-01-17 10:02] VITALS: O2SAT 89; O2SAT 98
[2024-01-17 18:58] VITALS: BP 103/64; TEMP 98.5; O2SAT 98
[2024-01-17 22:25] VITALS: O2SAT 97
[2024-01-18 08:53] VITALS: BP 112/73; TEMP 98; O2SAT 98
[2024-01-18 10:02] VITALS: O2SAT 86; O2SAT 97
[2024-01-18 19:36] VITALS: BP 111/69; TEMP 98; O2SAT 96
[2024-01-18 22:10] VITALS: O2SAT 97; O2SAT 98
[2024-01-19 08:00] VITALS: BP 124/74; TEMP 97.9; O2SAT 97
[2024-01-19 10:06] VITALS: O2SAT 97; O2SAT 98
[2024-01-19 12:51] LABS: BASOPHILS # (AUTO) 0.1 K/uL (0.0-0.2); BASOPHILS % (AUTO) 0.4 % (0.0-2.0); EOSINOPHILS # (AUTO) 0.9 K/uL (0.0-0.7); EOSINOPHILS % (AUTO) 6.8 % (0.0-6.0); HEMATOCRIT 31 % (39-51); HEMOGLOBIN 10.1 g/dL (13.5-17.5); LYMPHOCYTES # (AUTO) 0.9 K/uL (0.8-4.8); LYMPHOCYTES % (AUTO) 6.4 % (20.0-44.0); MEAN CORPUSCULAR HEMOGLOBIN 27 PG (26.0-33.0); MEAN CORPUSCULAR HGB CONC 32 g/dl (31.0-36.0); MEAN CORPUSCULAR VOLUME 85 fL (80-96); MONOCYTES # (AUTO) 1.5 K/uL (0.1-1.30); MONOCYTES % (AUTO) 10.8 % (2.0-12.0); NEUTROPHILS # (AUTO) 10.5 K/uL (1.8-8.9); NEUTROPHILS % (AUTO) 75.6 % (43.0-81.0); PLATELET COUNT (AUTO) 265 K/uL (150-450); RED BLOOD CELL COUNT(AUTO) 3.72 MIL/uL (4.5-6.0); RED CELL DISTRIBUTION WIDTH 16.8 % (11.5-15.0); WHITE BLOOD COUNT (AUTO) 13.9 K/uL (4.3-11.0)
[2024-01-19 19:57] VITALS: BP 112/71; TEMP 98.1; O2SAT 97
[2024-01-19 22:52] VITALS: O2SAT 98
[2024-01-20 08:34] VITALS: BP 100/61; TEMP 97.3; O2SAT 100
[2024-01-20 10:02] VITALS: O2SAT 98
[2024-01-20 19:54] VITALS: BP 108/71; TEMP 98.8; O2SAT 96
[2024-01-20 23:10] VITALS: O2SAT 97
[2024-01-21 07:30] VITALS: BP 112/65; TEMP 98.1; O2SAT 95
[2024-01-21 07:47] LABS: CALCIUM, SERUM 11.1 mg/dL (8.5-10.1); CARBON DIOXIDE 30 mmol/L (21-32); CHLORIDE 98 mmol/L (98-107); GLUCOSE 107 mg/dL (74-106); POTASSIUM 3.5 mmol/L (3.5-5.1); SODIUM SERUM 138 mmol/L (136-145)
[2024-01-21 07:59] LABS: UREA NITROGEN, BLOOD 87 mg/dL (7-18)
[2024-01-21 10:03] VITALS: O2SAT 96
[2024-01-21 10:04] VITALS: O2SAT 96
[2024-01-21 17:13] LABS: APPEARANCE,URINE CLEAR (CLEAR); BILIRUBIN,URINE NEGATIVE (NEGATIVE); BLOOD, URINE NEGATIVE Ery/uL (NEGATIVE); COLOR,URINE YELLOW (YELLOW); KETONES,URINE NEGATIVE (NEGATIVE); LEUKOCYTE ESTERASE ,URINE NEGATIVE (NEGATIVE); NITRITE, URINE NEGATIVE (NEGATIVE); PROTEIN,URINE NEGATIVE (NEGATIVE); UGLUCOSE NEGATIVE (NEGATIVE); UROBILINOGEN,URINE 0.2 EU/dL (0.2)
[2024-01-21 19:19] VITALS: BP 108/60; TEMP 98.9; O2SAT 98
[2024-01-21 22:39] VITALS: O2SAT 98
[2024-01-22 07:40] VITALS: BP 104/58; TEMP 98.2; O2SAT 98
[2024-01-22 11:42] VITALS: O2SAT 97
[2024-01-22 11:43] VITALS: O2SAT 97
[2024-01-22] MEDS: IV NS 0.9% 1,000 ML IV PRN (14:30)
[2024-01-22 20:56] VITALS: BP 120/71; TEMP 98.1; O2SAT 97
[2024-01-22 22:36] VITALS: O2SAT 96
[2024-01-23 07:43] LABS: CALCIUM, SERUM 10.8 mg/dL (8.5-10.1); CARBON DIOXIDE 32 mmol/L (21-32); CHLORIDE 98 mmol/L (98-107); CREATININE 0.9 mg/dL (0.6-1.3); GLUCOSE 110 mg/dL (74-106); POTASSIUM 3.5 mmol/L (3.5-5.1); SODIUM SERUM 135 mmol/L (136-145)
[2024-01-23 07:52] LABS: UREA NITROGEN, BLOOD 82 mg/dL (7-18)
[2024-01-23 10:29] VITALS: O2SAT 97; O2SAT 98
[2024-01-23 19:41] VITALS: BP 122/63; TEMP 98.2; O2SAT 100
[2024-01-23 23:39] VITALS: O2SAT 99
[2024-01-23 23:40] VITALS: O2SAT 99
[2024-01-24 08:33] VITALS: BP 112/73; TEMP 98.3; O2SAT 99
[2024-01-24 10:00] VITALS: O2SAT 99
[2024-01-24 11:24] VITALS: O2SAT 99
[2024-01-24 19:25] VITALS: BP 137/67; TEMP 99; O2SAT 99
[2024-01-24 22:23] VITALS: O2SAT 100
[2024-01-25 07:43] VITALS: BP 101/60; TEMP 98.1; O2SAT 98
[2024-01-25 10:16] VITALS: O2SAT 99
[2024-01-25 10:17] VITALS: O2SAT 99
[2024-01-25 19:35] VITALS: BP 120/74; TEMP 98.3; O2SAT 98
[2024-01-25 23:30] VITALS: O2SAT 98
[2024-01-26 07:44] VITALS: BP 112/64; TEMP 99; O2SAT 97
[2024-01-26 10:50] VITALS: O2SAT 97
[2024-01-26 12:25] VITALS: O2SAT 97
[2024-01-26 19:46] VITALS: BP 123/76; TEMP 98.8; O2SAT 98
[2024-01-26 23:31] VITALS: O2SAT 96
[2024-01-27 07:25] VITALS: BP 102/71; TEMP 98.6; O2SAT 98
[2024-01-27 09:30] VITALS: O2SAT 96
[2024-01-27 12:30] VITALS: RESP 22; O2SAT 96
[2024-01-27 12:36] VITALS: O2SAT 96
[2024-01-27 19:44] VITALS: BP 106/66; TEMP 98.6; O2SAT 97
[2024-01-27 23:18] VITALS: O2SAT 97
[2024-01-28 07:08] LABS: CARBON DIOXIDE 33 mmol/L (21-32); CHLORIDE 99 mmol/L (98-107); CREATININE 0.9 mg/dL (0.6-1.3); GLUCOSE 119 mg/dL (74-106); POTASSIUM 3.1 mmol/L (3.5-5.1); SODIUM SERUM 136 mmol/L (136-145); UREA NITROGEN, BLOOD 69 mg/dL (7-18)
[2024-01-28 07:40] VITALS: BP 115/76; TEMP 98.6; O2SAT 98
[2024-01-28 10:22] VITALS: O2SAT 97
[2024-01-28 10:23] VITALS: O2SAT 98
[2024-01-28] MEDS: MODAFINIL 100 MG TABLET PO SCH (10:44)
[2024-01-28] MEDS ORDERED: MODAFINIL 100 MG TABLET PO ONE (14:35)
[2024-01-28] MEDS: POTASSIUM CHLORIDE 20 MEQ POWDER PACKET GT SCH (14:36)
[2024-01-28 19:29] VITALS: BP 120/77; TEMP 98.1; O2SAT 98
[2024-01-28 22:02] VITALS: O2SAT 98
[2024-01-29 07:32] VITALS: BP 111/74; TEMP 98.6; O2SAT 99
[2024-01-29 11:40] VITALS: O2SAT 97
[2024-01-29 11:41] VITALS: O2SAT 98
[2024-01-29 20:48] VITALS: BP 118/77; TEMP 98.1; O2SAT 100
[2024-01-29 22:05] VITALS: O2SAT 99
[2024-01-30 07:13] VITALS: BP 108/72; TEMP 99; O2SAT 99
[2024-01-30 10:00] VITALS: O2SAT 99
[2024-01-30 10:01] VITALS: O2SAT 99
[2024-01-30 19:47] VITALS: BP 102/61; TEMP 99; O2SAT 97
[2024-01-30 23:39] VITALS: O2SAT 99
[2024-01-31 07:17] VITALS: BP 101/62; TEMP 97.5; O2SAT 99
[2024-01-31 08:20] VITALS: BP 126/83; TEMP 98.4; O2SAT 98
[2024-01-31 10:00] VITALS: O2SAT 99
[2024-01-31 11:06] VITALS: O2SAT 99
[2024-01-31 20:29] VITALS: BP 104/65; TEMP 97.9; O2SAT 100
[2024-01-31 23:27] VITALS: O2SAT 99
[2024-02-01 07:32] VITALS: BP 117/71; TEMP 98.8; O2SAT 99
[2024-02-01 09:59] VITALS: O2SAT 99
[2024-02-01 10:18] VITALS: O2SAT 99
[2024-02-01 18:57] VITALS: BP 110/69; TEMP 98.4; O2SAT 98
[2024-02-01 23:42] VITALS: O2SAT 99
[2024-02-01 23:43] VITALS: O2SAT 99
[2024-02-02 07:57] VITALS: BP 124/72; TEMP 97.8; O2SAT 98
[2024-02-02 10:01] VITALS: O2SAT 99
[2024-02-02 20:03] VITALS: BP 101/65; TEMP 98.6; O2SAT 99
[2024-02-02 23:56] VITALS: O2SAT 97
[2024-02-03 07:22] VITALS: BP 119/61; TEMP 97.9; O2SAT 98
[2024-02-03 10:09] VITALS: O2SAT 98
[2024-02-03 10:15] VITALS: O2SAT 98
[2024-02-03 20:04] VITALS: BP 115/71; TEMP 98.4; O2SAT 98
[2024-02-03 22:00] VITALS: O2SAT 99
[2024-02-04 06:49] LABS: CALCIUM, SERUM 11.2 mg/dL (8.5-10.1); CARBON DIOXIDE 33 mmol/L (21-32); CHLORIDE 99 mmol/L (98-107); GLUCOSE 120 mg/dL (74-106); POTASSIUM 3.6 mmol/L (3.5-5.1); SODIUM SERUM 138 mmol/L (136-145); UREA NITROGEN, BLOOD 70 mg/dL (7-18)
[2024-02-04 07:55] VITALS: BP 113/76; TEMP 98.8; O2SAT 98
[2024-02-04 10:06] VITALS: O2SAT 97
[2024-02-04 21:56] VITALS: BP 115/66; TEMP 98.4; O2SAT 100
[2024-02-04 22:31] VITALS: O2SAT 98
[2024-02-05 10:10] VITALS: O2SAT 99
[2024-02-05 14:36] VITALS: BP 103/64; TEMP 99.1; O2SAT 99
[2024-02-05 21:12] VITALS: BP 124/57; TEMP 98.4; O2SAT 99
[2024-02-05 23:01] VITALS: O2SAT 99
[2024-02-06 10:14] VITALS: O2SAT 99
[2024-02-06 16:40] VITALS: BP 117/71; TEMP 98.4; O2SAT 99
[2024-02-06 18:50] VITALS: BP 123/69; TEMP 98.2; O2SAT 100
[2024-02-06 22:50] VITALS: O2SAT 97
[2024-02-06 22:51] VITALS: O2SAT 97
[2024-02-07 08:46] VITALS: BP 103/68; TEMP 98.4; O2SAT 98
[2024-02-07 10:00] VITALS: O2SAT 98
[2024-02-07 10:46] VITALS: O2SAT 99
[2024-02-07 19:07] VITALS: BP 127/71; TEMP 98.2; O2SAT 99
[2024-02-07 22:03] VITALS: O2SAT 97
[2024-02-07 22:04] VITALS: O2SAT 97
[2024-02-08 07:21] VITALS: BP 120/65; TEMP 98.2; O2SAT 98
[2024-02-08 11:44] VITALS: O2SAT 99
[2024-02-08 19:02] VITALS: BP 131/66; TEMP 97.7; O2SAT 99
[2024-02-08 22:07] VITALS: O2SAT 99
[2024-02-09 07:34] VITALS: BP 108/72; TEMP 98.4; O2SAT 98
[2024-02-09 10:00] VITALS: O2SAT 99
[2024-02-09 11:14] VITALS: O2SAT 99
[2024-02-09 19:16] VITALS: BP 116/68; TEMP 97.9; O2SAT 99
[2024-02-09 23:20] VITALS: O2SAT 99
[2024-02-10 07:22] VITALS: BP 111/71; TEMP 98.6; O2SAT 99
[2024-02-10 10:11] VITALS: O2SAT 99
[2024-02-10 18:48] VITALS: BP 103/63; TEMP 99; O2SAT 100
[2024-02-10 23:25] VITALS: O2SAT 99
[2024-02-11 07:36] VITALS: BP 114/67; TEMP 98.1; O2SAT 99
[2024-02-11 10:16] VITALS: O2SAT 99
[2024-02-11 18:39] LABS: CALCIUM, SERUM 11.1 mg/dL (8.5-10.1); CARBON DIOXIDE 29 mmol/L (21-32); CHLORIDE 96 mmol/L (98-107); GLUCOSE 132 mg/dL (74-106); POTASSIUM 3.6 mmol/L (3.5-5.1); SODIUM SERUM 137 mmol/L (136-145)
[2024-02-11 18:44] LABS: UREA NITROGEN, BLOOD 85 mg/dL (7-18)
[2024-02-11 20:00] VITALS: BP 101/58; TEMP 98.4; O2SAT 99
[2024-02-12 00:22] VITALS: O2SAT 99
[2024-02-12 09:41] LABS: ABG BASE EXCESS 7.6 mmol/L (-2.0-3.0); ABG OXYGEN SATURATION 97.8 % (94.0-98.0); ABG PCO2 41.2 mmHg (35.0-48.0); ABG TOTAL HEMOGLOBIN 10.9 G/dL (13.5-17.5); COHb 0.3 % (0.5-1.5); MetHb 0.2 % (0.0-1.5); O2Hb 97.3 % (94.0-97.0); PEEP,BG 5 cm H2O; SITE, ABG LEFT RADIAL
[2024-02-12 10:52] VITALS: O2SAT 98
[2024-02-12] MEDS: IV NS 0.9% 1,000 ML IV PRN (13:00)
[2024-02-12] MEDS: THERAHONEY GEL 1.5 OZ TUBE TP SCH (20:59)
[2024-02-12 22:00] VITALS: BP 99/66; TEMP 98.2; O2SAT 98
[2024-02-12 23:00] VITALS: O2SAT 99
[2024-02-13 08:00] VITALS: BP 94/57; TEMP 98.4; O2SAT 98
[2024-02-13 08:12] LABS: CALCIUM, SERUM 11.1 mg/dL (8.5-10.1); CARBON DIOXIDE 33 mmol/L (21-32); CHLORIDE 97 mmol/L (98-107); GLUCOSE 114 mg/dL (74-106); POTASSIUM 3.4 mmol/L (3.5-5.1); SODIUM SERUM 136 mmol/L (136-145)
[2024-02-13 08:13] LABS: UREA NITROGEN, BLOOD 86 mg/dL (7-18)
[2024-02-13 08:15] VITALS: O2SAT 99
[2024-02-13 10:05] VITALS: O2SAT 99
[2024-02-13 11:12] LABS: VIT D, 25-HYDROXY 57.8 ng/mL (30.0-100.0)
[2024-02-13 15:11] LABS: CALCITRIOL VIT D,1, 25 DIHYDRO 20.3 pg/mL (24.8-81.5)
[2024-02-13] MEDS: POTASSIUM CHLORIDE 20 MEQ TAB.PRT.SR PO ONE (17:56)
[2024-02-13 19:47] VITALS: BP 98/55; TEMP 98.7; O2SAT 99
[2024-02-13 22:20] VITALS: O2SAT 99
[2024-02-14 07:29] LABS: CALCIUM, SERUM 10.9 mg/dL (8.5-10.1); CARBON DIOXIDE 28 mmol/L (21-32); CHLORIDE 101 mmol/L (98-107); CREATININE 0.9 mg/dL (0.6-1.3); GLUCOSE 112 mg/dL (74-106); POTASSIUM 3.7 mmol/L (3.5-5.1); SODIUM SERUM 138 mmol/L (136-145); UREA NITROGEN, BLOOD 72 mg/dL (7-18)
[2024-02-14 10:00] VITALS: O2SAT 98
[2024-02-14 22:32] VITALS: O2SAT 100
[2024-02-14 22:33] VITALS: O2SAT 100
[2024-02-15 08:00] VITALS: BP 108/68; TEMP 98.2; O2SAT 100
[2024-02-15 10:13] VITALS: O2SAT 99
[2024-02-15 10:14] VITALS: O2SAT 98
[2024-02-15 19:44] VITALS: BP 105/57; TEMP 99; O2SAT 100
[2024-02-15 22:18] VITALS: O2SAT 100
[2024-02-16 07:39] VITALS: BP 124/70; TEMP 97.9; O2SAT 100
[2024-02-16 10:01] VITALS: O2SAT 98
[2024-02-16 10:02] VITALS: O2SAT 99
[2024-02-16 20:49] VITALS: BP 119/76; TEMP 98.2; O2SAT 99
[2024-02-16 22:27] VITALS: O2SAT 99
[2024-02-17 07:24] VITALS: BP 119/65; TEMP 97.5; O2SAT 98
[2024-02-17 11:40] VITALS: O2SAT 99
[2024-02-17 20:00] VITALS: BP 122/75; TEMP 98.4; O2SAT 99
[2024-02-17 22:30] VITALS: O2SAT 99
[2024-02-18 07:24] VITALS: BP 111/87; TEMP 99.3; O2SAT 98
[2024-02-18 08:05] LABS: CALCIUM, SERUM 10.8 mg/dL (8.5-10.1); CARBON DIOXIDE 30 mmol/L (21-32); CHLORIDE 102 mmol/L (98-107); CREATININE 0.9 mg/dL (0.6-1.3); GLUCOSE 117 mg/dL (74-106); POTASSIUM 3.9 mmol/L (3.5-5.1); SODIUM SERUM 139 mmol/L (136-145); UREA NITROGEN, BLOOD 54 mg/dL (7-18)
[2024-02-18 11:01] VITALS: O2SAT 98
[2024-02-18 11:02] VITALS: O2SAT 98
[2024-02-18 20:23] VITALS: BP 99/59; TEMP 98; O2SAT 99
[2024-02-18 22:05] VITALS: O2SAT 99
[2024-02-19 07:29] VITALS: O2SAT 98
[2024-02-19 07:32] VITALS: BP 104/68; TEMP 99; O2SAT 100
[2024-02-19 12:32] VITALS: O2SAT 97
[2024-02-19 19:15] VITALS: BP 100/64; TEMP 98; O2SAT 98
[2024-02-19 22:02] VITALS: O2SAT 98
[2024-02-19 23:20] VITALS: O2SAT 98
[2024-02-20 07:34] VITALS: BP 108/79; TEMP 97.9; O2SAT 100
[2024-02-20 10:01] VITALS: O2SAT 98
[2024-02-20 20:27] VITALS: BP 108/79; TEMP 98.1; O2SAT 99
[2024-02-20 23:48] VITALS: O2SAT 99
[2024-02-20 23:49] VITALS: O2SAT 99
[2024-02-21 07:25] VITALS: BP 112/76; TEMP 98.3; O2SAT 97
[2024-02-21 11:01] VITALS: O2SAT 98
[2024-02-21 11:05] VITALS: O2SAT 98
[2024-02-21 19:06] VITALS: BP 102/66; TEMP 98.6; O2SAT 99
[2024-02-22] VITALS (7 sets, daily range): BP systolic 102–115; BP diastolic 66–78; TEMP 97.7–98.9; O2SAT 97–100
[2024-02-23 07:27] VITALS: BP 116/77; TEMP 97.9; O2SAT 99
[2024-02-23 10:40] VITALS: O2SAT 99
[2024-02-23 19:04] VITALS: BP 105/68; TEMP 98.8; O2SAT 100
[2024-02-23 23:04] VITALS: O2SAT 100
[2024-02-23 23:34] VITALS: O2SAT 100
[2024-02-24 07:41] VITALS: BP 103/58; TEMP 97.7; O2SAT 98
[2024-02-24 10:20] VITALS: O2SAT 98
[2024-02-24 10:21] VITALS: O2SAT 98
[2024-02-24 19:01] VITALS: BP 113/72; TEMP 97.5; O2SAT 100
[2024-02-24 23:23] VITALS: O2SAT 99
[2024-02-25 07:49] VITALS: BP 98/57; TEMP 98.4; O2SAT 100
[2024-02-25 10:21] VITALS: O2SAT 99
[2024-02-25 10:22] VITALS: O2SAT 99
[2024-02-25 20:00] VITALS: BP 131/68; TEMP 98.1; O2SAT 99
[2024-02-25 22:59] VITALS: O2SAT 98
[2024-02-26 07:30] VITALS: BP 125/88; TEMP 98.6; O2SAT 98
[2024-02-26 08:00] VITALS: RESP 16; O2SAT 98
[2024-02-26 08:00] LABS: CALCIUM, SERUM 10.8 mg/dL (8.5-10.1); CARBON DIOXIDE 28 mmol/L (21-32); CHLORIDE 98 mmol/L (98-107); CREATININE 0.9 mg/dL (0.6-1.3); GLUCOSE 120 mg/dL (74-106); POTASSIUM 3.5 mmol/L (3.5-5.1); SODIUM SERUM 135 mmol/L (136-145); UREA NITROGEN, BLOOD 71 mg/dL (7-18)
[2024-02-26 10:01] VITALS: O2SAT 98
[2024-02-26 20:00] VITALS: BP 126/73; TEMP 98; O2SAT 99
[2024-02-26] MEDS: THERAHONEY GEL 1.5 OZ TUBE TP SCH (21:03)
[2024-02-26 22:23] VITALS: O2SAT 97
[2024-02-27 07:42] LABS: CARBON DIOXIDE 33 mmol/L (21-32); CHLORIDE 97 mmol/L (98-107); CREATININE 0.9 mg/dL (0.6-1.3); GLUCOSE 109 mg/dL (74-106); POTASSIUM 3.6 mmol/L (3.5-5.1); SODIUM SERUM 135 mmol/L (136-145); UREA NITROGEN, BLOOD 66 mg/dL (7-18)
[2024-02-27 07:51] VITALS: BP 103/57; TEMP 97.9; O2SAT 99
[2024-02-27 10:17] VITALS: O2SAT 99
[2024-02-27 10:19] VITALS: O2SAT 99
[2024-02-27 20:00] VITALS: BP 118/68; TEMP 98.1; O2SAT 99
[2024-02-27 23:50] VITALS: O2SAT 98
[2024-02-28 07:35] VITALS: BP 119/71; TEMP 97.7; O2SAT 100
[2024-02-28 10:10] VITALS: O2SAT 98
[2024-02-28] MEDS ORDERED: THERAHONEY GEL 1.5 OZ TUBE TP PRN (12:00)
[2024-02-28 19:28] VITALS: BP 114/57; TEMP 98.6; O2SAT 100
[2024-02-29] VITALS: O2SAT 99
[2024-02-29 07:20] VITALS: BP 106/57; TEMP 98.1; O2SAT 98
[2024-02-29 10:21] VITALS: O2SAT 100
[2024-02-29 10:22] VITALS: O2SAT 100
[2024-02-29 12:30] LABS: BASOPHILS # (AUTO) 0.1 K/uL (0.0-0.2); BASOPHILS % (AUTO) 0.7 % (0.0-2.0); EOSINOPHILS # (AUTO) 0.2 K/uL (0.0-0.7); EOSINOPHILS % (AUTO) 2.1 % (0.0-6.0); HEMATOCRIT 32 % (39-51); HEMOGLOBIN 10.5 g/dL (13.5-17.5); LYMPHOCYTES # (AUTO) 0.6 K/uL (0.8-4.8); LYMPHOCYTES % (AUTO) 7.1 % (20.0-44.0); MEAN CORPUSCULAR HEMOGLOBIN 28 PG (26.0-33.0); MEAN CORPUSCULAR HGB CONC 33 g/dl (31.0-36.0); MEAN CORPUSCULAR VOLUME 85 fL (80-96); MONOCYTES # (AUTO) 0.8 K/uL (0.1-1.30); MONOCYTES % (AUTO) 8.9 % (2.0-12.0); NEUTROPHILS # (AUTO) 7.1 K/uL (1.8-8.9); NEUTROPHILS % (AUTO) 81.2 % (43.0-81.0); PLATELET COUNT (AUTO) 160 K/uL (150-450); RED BLOOD CELL COUNT(AUTO) 3.79 MIL/uL (4.5-6.0); RED CELL DISTRIBUTION WIDTH 17.8 % (11.5-15.0); WHITE BLOOD COUNT (AUTO) 8.7 K/uL (4.3-11.0)
[2024-02-29 19:48] VITALS: BP 116/68; TEMP 98.8; O2SAT 100
[2024-02-29 23:44] VITALS: O2SAT 99
[2024-03-01 09:03] VITALS: BP 109/67; TEMP 97.2; O2SAT 98
[2024-03-01 10:26] VITALS: O2SAT 100
[2024-03-01 10:27] VITALS: O2SAT 100
[2024-03-01 20:00] VITALS: BP 111/65; TEMP 98.1; O2SAT 99
[2024-03-01 22:54] VITALS: O2SAT 99
[2024-03-02 07:31] VITALS: BP 106/82; TEMP 98.1; O2SAT 97
[2024-03-02 10:01] VITALS: O2SAT 98
[2024-03-02 21:10] VITALS: BP 111/71; TEMP 98.2; O2SAT 99
[2024-03-02 22:43] VITALS: O2SAT 98
[2024-03-03 07:34] VITALS: BP 104/68; TEMP 98.2; O2SAT 97
[2024-03-03 08:13] LABS: CALCIUM, SERUM 11.4 mg/dL (8.5-10.1); CARBON DIOXIDE 34 mmol/L (21-32); CHLORIDE 101 mmol/L (98-107); GLUCOSE 108 mg/dL (74-106); POTASSIUM 3.6 mmol/L (3.5-5.1); SODIUM SERUM 141 mmol/L (136-145)
[2024-03-03 08:19] LABS: UREA NITROGEN, BLOOD 83 mg/dL (7-18)
[2024-03-03] MEDS: IV NS 0.9% 1,000 ML IV SCH (10:00)
[2024-03-03 10:07] VITALS: O2SAT 100
[2024-03-03 19:57] VITALS: BP 115/60; TEMP 98.2; O2SAT 100
[2024-03-03 23:11] VITALS: O2SAT 99
[2024-03-04 07:15] VITALS: BP 110/59; TEMP 98; O2SAT 100
[2024-03-04 08:12] LABS: VIT D, 25-HYDROXY 48.1 ng/mL (30.0-100.0)
[2024-03-04 10:03] VITALS: O2SAT 100
[2024-03-04 10:10] LABS: CALCITRIOL VIT D,1, 25 DIHYDRO 19.7 pg/mL (24.8-81.5)
[2024-03-04 19:52] VITALS: BP 114/57; TEMP 98.4; O2SAT 100
[2024-03-04 22:15] VITALS: O2SAT 100
[2024-03-05 05:12] LABS: *SPE A/G RATIO 0.8 (0.7-1.7); *SPE ALBUMIN 3.1 g/dL (2.9-4.4); *SPE ALPHA-1-GLOBULIN 0.3 g/dL (0.0-0.4); *SPE BETA GLOBULIN 1.2 g/dL (0.7-1.3); *SPE M-SPIKE Not Observed g/dL (Not Observed); *SPE PROTEIN TOTAL 7.1 g/dL (6.0-8.5); *SPEGAMMA GLOBULIN 1.6 g/dL (0.4-1.8)
[2024-03-05 07:13] VITALS: BP 100/54; TEMP 98.2; O2SAT 100
[2024-03-05 07:45] LABS: CALCIUM, SERUM 10.9 mg/dL (8.5-10.1); CARBON DIOXIDE 33 mmol/L (21-32); CHLORIDE 101 mmol/L (98-107); CREATININE 0.8 mg/dL (0.6-1.3); GLUCOSE 103 mg/dL (74-106); POTASSIUM 3.6 mmol/L (3.5-5.1); SODIUM SERUM 139 mmol/L (136-145); UREA NITROGEN, BLOOD 63 mg/dL (7-18)
[2024-03-05 11:13] VITALS: O2SAT 98
[2024-03-05 20:00] VITALS: BP 104/59; TEMP 98.1; O2SAT 99
[2024-03-05 23:14] VITALS: O2SAT 98
[2024-03-05 23:16] VITALS: O2SAT 98
[2024-03-06 07:15] VITALS: BP 96/67; TEMP 98.1; O2SAT 96
[2024-03-06 10:00] VITALS: O2SAT 98
[2024-03-06 11:19] VITALS: O2SAT 98
[2024-03-06 19:42] VITALS: BP 116/60; TEMP 98.4; O2SAT 94
[2024-03-06 20:21] VITALS: O2SAT 95
[2024-03-07 00:01] VITALS: O2SAT 98
[2024-03-07 07:41] VITALS: BP 114/59; TEMP 98.6; O2SAT 98
[2024-03-07 10:18] VITALS: O2SAT 95
[2024-03-07 19:44] VITALS: BP 122/74; TEMP 98.6; O2SAT 98
[2024-03-07 20:08] VITALS: O2SAT 98
[2024-03-07 23:50] VITALS: O2SAT 97
[2024-03-08 07:04] VITALS: BP 103/56; TEMP 98.4; O2SAT 100
[2024-03-08 10:00] VITALS: O2SAT 99
[2024-03-08 11:29] VITALS: O2SAT 99
[2024-03-08 19:31] VITALS: BP 119/71; TEMP 99.7; O2SAT 99
[2024-03-08 23:04] VITALS: O2SAT 99
[2024-03-08 23:05] VITALS: O2SAT 98
[2024-03-09 07:28] VITALS: BP 127/74; TEMP 98.6; O2SAT 99
[2024-03-09 10:06] VITALS: O2SAT 98
[2024-03-09 10:07] VITALS: O2SAT 98
[2024-03-09 19:34] VITALS: BP 132/77; TEMP 99.1; O2SAT 97
[2024-03-09 22:00] VITALS: O2SAT 98
[2024-03-10 07:24] LABS: CALCIUM, SERUM 11.2 mg/dL (8.5-10.1); CARBON DIOXIDE 31 mmol/L (21-32); CHLORIDE 100 mmol/L (98-107); CREATININE 0.9 mg/dL (0.6-1.3); GLUCOSE 109 mg/dL (74-106); POTASSIUM 3.3 mmol/L (3.5-5.1); SODIUM SERUM 139 mmol/L (136-145); UREA NITROGEN, BLOOD 64 mg/dL (7-18)
[2024-03-10] MEDS: POTASSIUM CHLORIDE 20 MEQ POWDER PACKET GT ONE (09:00)
[2024-03-10 10:02] VITALS: O2SAT 98
[2024-03-10 19:37] VITALS: BP 96/55; TEMP 98.1; O2SAT 98
[2024-03-10 23:29] VITALS: O2SAT 100
[2024-03-11 08:36] VITALS: BP 117/71; TEMP 97.9; O2SAT 100
[2024-03-11 11:23] VITALS: O2SAT 97
[2024-03-11 11:24] VITALS: O2SAT 97
[2024-03-11 22:00] VITALS: BP 121/61; TEMP 98.9; O2SAT 98
[2024-03-11 22:01] VITALS: O2SAT 99
[2024-03-12 07:18] VITALS: BP 102/67; TEMP 97.6; O2SAT 99
[2024-03-12 10:46] VITALS: O2SAT 99
[2024-03-12 19:39] VITALS: BP 123/75; TEMP 98.8; O2SAT 95
[2024-03-12 22:00] VITALS: O2SAT 99
[2024-03-13 07:24] VITALS: BP 111/66; TEMP 97.7; O2SAT 100
[2024-03-13 10:06] VITALS: O2SAT 100
[2024-03-13 10:07] VITALS: O2SAT 100
[2024-03-13 19:39] VITALS: BP 129/70; TEMP 98.9; O2SAT 100
[2024-03-13 23:06] VITALS: O2SAT 99
[2024-03-14 07:50] VITALS: BP 120/71; TEMP 98.1; O2SAT 98
[2024-03-14 11:50] VITALS: O2SAT 100
[2024-03-14 19:10] VITALS: BP 106/70; TEMP 98.1; O2SAT 99
[2024-03-14 20:29] VITALS: O2SAT 98
[2024-03-14 22:58] VITALS: O2SAT 96
[2024-03-15 07:24] VITALS: BP 101/59; TEMP 98.2; O2SAT 99
[2024-03-15 10:03] VITALS: O2SAT 100
[2024-03-15 19:23] VITALS: BP 106/64; TEMP 98.4; O2SAT 97
[2024-03-15 22:29] VITALS: O2SAT 99
[2024-03-16 07:23] VITALS: BP 113/65; TEMP 98.1; O2SAT 99
[2024-03-16 10:04] VITALS: O2SAT 98; O2SAT 99
[2024-03-16 19:08] VITALS: BP 102/54; TEMP 98.2; O2SAT 98
[2024-03-16 22:21] VITALS: O2SAT 97
[2024-03-17 07:53] VITALS: BP 116/68; TEMP 97.7; O2SAT 98
[2024-03-17 07:55] LABS: CALCIUM, SERUM 11.1 mg/dL (8.5-10.1); CARBON DIOXIDE 31 mmol/L (21-32); CHLORIDE 98 mmol/L (98-107); CREATININE 1.1 mg/dL (0.6-1.3); GLUCOSE 108 mg/dL (74-106); POTASSIUM 3.4 mmol/L (3.5-5.1)
[2024-03-17 07:56] LABS: UREA NITROGEN, BLOOD 82 mg/dL (7-18)
[2024-03-17 07:57] LABS: SODIUM SERUM 138 mmol/L (136-145)
[2024-03-17 10:06] VITALS: O2SAT 98; O2SAT 99
[2024-03-17] MEDS: POTASSIUM CHLORIDE 20 MEQ POWDER PACKET NG SCH (10:19)
[2024-03-17] MEDS: IV NS 0.9% 1,000 ML IV PRN (11:00)
[2024-03-17 19:22] VITALS: BP 97/76; TEMP 98.6; O2SAT 99
[2024-03-17 22:15] VITALS: O2SAT 98
[2024-03-18 07:10] VITALS: BP 116/76; TEMP 98.6; O2SAT 98
[2024-03-18 07:22] LABS: CALCIUM, SERUM 10.9 mg/dL (8.5-10.1); CARBON DIOXIDE 29 mmol/L (21-32); CHLORIDE 102 mmol/L (98-107); CREATININE 0.9 mg/dL (0.6-1.3); GLUCOSE 109 mg/dL (74-106); POTASSIUM 3.8 mmol/L (3.5-5.1); SODIUM SERUM 138 mmol/L (136-145); UREA NITROGEN, BLOOD 68 mg/dL (7-18)
[2024-03-18 10:18] VITALS: O2SAT 98
[2024-03-18 10:19] VITALS: O2SAT 98
[2024-03-18] MEDS: POTASSIUM CHLORIDE 20 MEQ POWDER PACKET GT ONE (14:45)
[2024-03-18 19:48] VITALS: BP 124/73; TEMP 98.5; O2SAT 98
[2024-03-18 22:27] VITALS: O2SAT 99
[2024-03-19 11:51] VITALS: O2SAT 99
[2024-03-19 11:52] VITALS: O2SAT 99
[2024-03-19 20:57] VITALS: BP 128/62; TEMP 98.5; O2SAT 94
[2024-03-19 22:59] VITALS: O2SAT 98
[2024-03-19 23:00] VITALS: O2SAT 98
[2024-03-20 07:21] VITALS: BP 125/70; TEMP 98; O2SAT 98
[2024-03-20 10:00] VITALS: O2SAT 98
[2024-03-20 11:37] VITALS: O2SAT 98
[2024-03-20 19:23] VITALS: BP 110/71; TEMP 98.7; O2SAT 98
[2024-03-20 23:26] VITALS: O2SAT 98; O2SAT 99
[2024-03-21 07:10] VITALS: BP 115/73; TEMP 98.3; O2SAT 97
[2024-03-21 10:55] VITALS: O2SAT 98; O2SAT 99
[2024-03-21 19:07] VITALS: BP 139/71; TEMP 98; O2SAT 100
[2024-03-21 23:24] VITALS: O2SAT 98
[2024-03-22 07:25] VITALS: BP 129/87; TEMP 98.6; O2SAT 97
[2024-03-22 10:00] VITALS: O2SAT 98
[2024-03-22 10:02] VITALS: O2SAT 98
[2024-03-22 20:02] VITALS: BP 127/70; TEMP 98.6; O2SAT 99
[2024-03-22 23:11] VITALS: O2SAT 99
[2024-03-23 07:21] VITALS: BP 126/74; TEMP 98.2; O2SAT 100
[2024-03-23 10:04] VITALS: O2SAT 100
[2024-03-23 18:59] VITALS: BP 112/64; TEMP 98.8; O2SAT 99
[2024-03-23 22:15] VITALS: O2SAT 99
[2024-03-24 08:05] LABS: CALCIUM, SERUM 10.9 mg/dL (8.5-10.1); CARBON DIOXIDE 27 mmol/L (21-32); CHLORIDE 101 mmol/L (98-107); CREATININE 0.9 mg/dL (0.6-1.3); GLUCOSE 111 mg/dL (74-106); POTASSIUM 3.5 mmol/L (3.5-5.1); SODIUM SERUM 139 mmol/L (136-145); UREA NITROGEN, BLOOD 74 mg/dL (7-18)
[2024-03-24 10:12] VITALS: O2SAT 99
[2024-03-24 10:13] VITALS: O2SAT 99
[2024-03-24 15:41] VITALS: BP 133/74; TEMP 97.7; O2SAT 96
[2024-03-24] MEDS ORDERED: NYSTATIN CREAM 15 GM TUBE TP PRN (19:30)
[2024-03-24] MEDS ORDERED: TRIAMCINOLONE ACETONIDE 0.1% CR 15 GM TUBE TP PRN (19:30)
[2024-03-24 20:00] VITALS: BP 118/78; TEMP 98.1; O2SAT 99
[2024-03-24] MEDS: TRIAMCINOLONE ACETONIDE 0.1% CR 15 GM TUBE TP SCH (21:22)
[2024-03-24] MEDS: NYSTATIN CREAM 15 GM TUBE TP SCH (21:22)
[2024-03-24 23:02] VITALS: O2SAT 98
[2024-03-25 08:48] VITALS: BP 117/69; TEMP 99; O2SAT 98
[2024-03-25 11:42] VITALS: O2SAT 96
[2024-03-25 11:43] VITALS: O2SAT 99
[2024-03-25 20:00] VITALS: BP 112/67; TEMP 98.1; O2SAT 99
[2024-03-25 22:10] VITALS: O2SAT 98
[2024-03-26 10:00] VITALS: O2SAT 98
[2024-03-26 20:40] VITALS: BP 116/81; TEMP 97.5; O2SAT 99
[2024-03-26 23:29] VITALS: O2SAT 97
[2024-03-26 23:34] VITALS: O2SAT 98
[2024-03-27 10:10] VITALS: O2SAT 99
[2024-03-27 10:11] VITALS: O2SAT 99
[2024-03-27 15:57] VITALS: BP 122/83; TEMP 98.6; O2SAT 97
[2024-03-27 19:42] VITALS: BP 109/68; TEMP 99.3; O2SAT 99
[2024-03-27 22:19] VITALS: O2SAT 96
[2024-03-28] MEDS: THERAHONEY GEL 1.5 OZ TUBE TP SCH (09:34)
[2024-03-28 09:44] VITALS: RESP 16; O2SAT 100
[2024-03-28 10:06] VITALS: O2SAT 100
[2024-03-28 16:15] VITALS: BP 108/65; TEMP 98.1; O2SAT 99
[2024-03-28 20:43] VITALS: BP 115/62; TEMP 97.9; O2SAT 98
[2024-03-28 20:45] VITALS: BP 115/62; TEMP 97.9; O2SAT 98
[2024-03-28] MEDS: NYSTATIN TOP POWDER 15 GM BOTTLE TP SCH (21:12)
[2024-03-28 22:37] VITALS: O2SAT 97; O2SAT 98
[2024-03-29 08:04] VITALS: BP 121/74; TEMP 98.6; O2SAT 97
[2024-03-29 10:35] VITALS: O2SAT 100
[2024-03-29 19:04] VITALS: BP 104/65; TEMP 98.8; O2SAT 96
[2024-03-29 23:30] VITALS: O2SAT 96
[2024-03-30 07:26] VITALS: BP 122/75; TEMP 98.1; O2SAT 96
[2024-03-30 10:30] VITALS: O2SAT 98
[2024-03-30 20:00] VITALS: BP 126/79; TEMP 98.1; O2SAT 99
[2024-03-30 22:58] VITALS: O2SAT 99
[2024-03-31 07:25] VITALS: BP 104/61; TEMP 98.1; O2SAT 96
[2024-03-31 07:25] LABS: CALCIUM, SERUM 11.5 mg/dL (8.5-10.1); CARBON DIOXIDE 28 mmol/L (21-32); CHLORIDE 101 mmol/L (98-107); GLUCOSE 116 mg/dL (74-106); POTASSIUM 3.7 mmol/L (3.5-5.1); SODIUM SERUM 140 mmol/L (136-145); UREA NITROGEN, BLOOD 76 mg/dL (7-18)
[2024-03-31 10:01] VITALS: O2SAT 98
[2024-03-31 20:00] VITALS: BP 130/64; TEMP 98; O2SAT 99
[2024-03-31 22:14] VITALS: O2SAT 99
[2024-04-01 10:01] VITALS: O2SAT 95
[2024-04-01] MEDS ORDERED: IV NS 0.9% 1,000 ML IV ONE (13:00)
[2024-04-01] MEDS: IV NS 0.9% 1,000 ML IV SCH (14:00)
[2024-04-01 15:37] VITALS: BP 125/78; TEMP 98.2; O2SAT 98
[2024-04-01 19:53] LABS: APPEARANCE,URINE TURBID (CLEAR); BILIRUBIN,URINE NEGATIVE (NEGATIVE); BLOOD, URINE 1+ Ery/uL (NEGATIVE); COLOR,URINE YELLOW (YELLOW); KETONES,URINE NEGATIVE (NEGATIVE); LEUKOCYTE ESTERASE ,URINE 3+ (NEGATIVE); NITRITE, URINE NEGATIVE (NEGATIVE); PH,URINE 8.5 (5.0-8.0); PROTEIN,URINE 1+ mg/dl (NEGATIVE); UGLUCOSE NEGATIVE (NEGATIVE); UROBILINOGEN,URINE 0.2 EU/dL (0.2)
[2024-04-01 19:56] LABS: CREATININE, URINE 33.5 MG/DL (30.0-125.0); URINE TOTAL PROTEIN 46.5 mg/dL (0-11.9)
[2024-04-01 20:32] LABS: EOSINOPHIL,URINE None Seen
[2024-04-01 20:34] LABS: ADD URINE CULTURE YES; BACTERIA,URINE 1+ /HPF (None Seen); SQUAMOUS EPITHELIAL CELL,UR None Seen /HPF (None Seen); TRIPLE PHOSPHATE CRYSTAL,UR Few /HPF (None Seen)
[2024-04-01 20:35] LABS: URINE AMORPHOUS PHOSPHATES Moderate /HPF (None Seen)
[2024-04-01 21:01] VITALS: BP 115/72; TEMP 98.4; O2SAT 98
[2024-04-01 22:42] VITALS: O2SAT 98
[2024-04-02 07:16] VITALS: BP 122/77; TEMP 98; O2SAT 97
[2024-04-02 07:54] LABS: BASOPHILS % (AUTO) 0.5 % (0.0-2.0); EOSINOPHILS # (AUTO) 0.3 K/uL (0.0-0.7); HEMATOCRIT 33 % (39-51); HEMOGLOBIN 10.8 g/dL (13.5-17.5); LYMPHOCYTES # (AUTO) 0.7 K/uL (0.8-4.8); LYMPHOCYTES % (AUTO) 8.9 % (20.0-44.0); MEAN CORPUSCULAR HEMOGLOBIN 28 PG (26.0-33.0); MEAN CORPUSCULAR HGB CONC 33 g/dl (31.0-36.0); MEAN CORPUSCULAR VOLUME 87 fL (80-96); MONOCYTES # (AUTO) 0.7 K/uL (0.1-1.30); MONOCYTES % (AUTO) 9.9 % (2.0-12.0); NEUTROPHILS # (AUTO) 5.8 K/uL (1.8-8.9); NEUTROPHILS % (AUTO) 76.7 % (43.0-81.0); PLATELET COUNT (AUTO) 141 K/uL (150-450); RED BLOOD CELL COUNT(AUTO) 3.85 MIL/uL (4.5-6.0); RED CELL DISTRIBUTION WIDTH 17.8 % (11.5-15.0); WHITE BLOOD COUNT (AUTO) 7.6 K/uL (4.3-11.0)
[2024-04-02 08:06] LABS: ALANINE AMINOTRANSFERASE 26 U/L (12-78); ALBUMIN 2.9 g/dL (3.4-5.0); ALKALINE PHOSPHATASE 87 U/L (46-116); ASPARTATE AMINOTRANSFERASE 20 U/L (15-37); BILIRUBIN,TOTAL 0.3 mg/dL (0.2-1.0); CALCIUM, SERUM 10.5 mg/dL (8.5-10.1); CARBON DIOXIDE 32 mmol/L (21-32); CHLORIDE 108 mmol/L (98-107); CREATININE 0.9 mg/dL (0.6-1.3); GLUCOSE 103 mg/dL (74-106); MAGNESIUM 2.6 mg/dL (1.8-2.4); PHOSPHORUS 3.9 mg/dL (2.5-4.9); POTASSIUM 3.9 mmol/L (3.5-5.1); SODIUM SERUM 146 mmol/L (136-145); TOTAL PROTEIN, SERUM 7.3 g/dL (6.4-8.2); UREA NITROGEN, BLOOD 80 mg/dL (7-18)
[2024-04-02 12:04] VITALS: O2SAT 96
[2024-04-02 12:05] VITALS: O2SAT 96
[2024-04-02 20:23] VITALS: BP 117/81; TEMP 98.1; O2SAT 99
[2024-04-02 23:47] VITALS: O2SAT 99
[2024-04-03 07:22] VITALS: BP 104/67; TEMP 97.6; O2SAT 99
[2024-04-03 10:12] VITALS: O2SAT 96
[2024-04-03 20:55] VITALS: BP 123/69; TEMP 98.4; O2SAT 96
[2024-04-03 22:11] VITALS: O2SAT 99
[2024-04-03 22:12] VITALS: O2SAT 98
[2024-04-04 07:42] VITALS: BP 111/70; TEMP 98.2; O2SAT 98
[2024-04-04] MEDS: IV 1/2NS 1000 ML 1,000 ML IV ONE (11:10)
[2024-04-04 11:27] VITALS: O2SAT 96
[2024-04-04 19:56] VITALS: BP 118/75; TEMP 98.9; O2SAT 99
[2024-04-04 23:40] VITALS: O2SAT 96
[2024-04-05 07:43] VITALS: BP 128/78; TEMP 98.4; O2SAT 99
[2024-04-05 07:45] LABS: CALCIUM, SERUM 10.5 mg/dL (8.5-10.1); CARBON DIOXIDE 29 mmol/L (21-32); CHLORIDE 104 mmol/L (98-107); CREATININE 0.9 mg/dL (0.6-1.3); GLUCOSE 105 mg/dL (74-106); POTASSIUM 3.8 mmol/L (3.5-5.1); SODIUM SERUM 142 mmol/L (136-145); UREA NITROGEN, BLOOD 67 mg/dL (7-18)
[2024-04-05 10:14] VITALS: O2SAT 97
[2024-04-05 10:16] VITALS: O2SAT 97
[2024-04-05 19:45] VITALS: BP 127/78; TEMP 98.4; O2SAT 97
[2024-04-05 23:20] VITALS: O2SAT 96
[2024-04-06 07:46] VITALS: BP 118/87; TEMP 98.2; O2SAT 95
[2024-04-06 10:06] VITALS: O2SAT 96
[2024-04-06 10:07] VITALS: O2SAT 96
[2024-04-06 19:10] VITALS: BP 117/70; TEMP 98.6; O2SAT 95
[2024-04-06 22:15] VITALS: O2SAT 97
[2024-04-07 08:02] LABS: CARBON DIOXIDE 33 mmol/L (21-32); CHLORIDE 105 mmol/L (98-107); CREATININE 0.9 mg/dL (0.6-1.3); GLUCOSE 114 mg/dL (74-106); POTASSIUM 3.4 mmol/L (3.5-5.1); SODIUM SERUM 142 mmol/L (136-145); UREA NITROGEN, BLOOD 60 mg/dL (7-18)
[2024-04-07 08:07] VITALS: BP 125/86; TEMP 98.1; O2SAT 100
[2024-04-07 10:01] VITALS: O2SAT 96
[2024-04-07 11:54] VITALS: BP 100/75; TEMP 98.1; O2SAT 95
[2024-04-07] MEDS: POTASSIUM CHLORIDE 20 MEQ POWDER PACKET GT ONE (12:01)
[2024-04-07 20:47] VITALS: BP 117/60; TEMP 98.2; O2SAT 96
[2024-04-07 22:32] VITALS: O2SAT 96
[2024-04-08 07:30] VITALS: BP 119/71; TEMP 98.6; O2SAT 95
[2024-04-08 10:06] VITALS: O2SAT 94
[2024-04-08 22:00] VITALS: BP 130/78; TEMP 98.1; O2SAT 96
[2024-04-08 22:09] VITALS: O2SAT 96
[2024-04-09 08:06] VITALS: O2SAT 96
[2024-04-09 08:21] VITALS: O2SAT 98
[2024-04-09 10:05] VITALS: O2SAT 97
[2024-04-09 20:55] VITALS: BP 101/59; TEMP 97.8; O2SAT 95
[2024-04-09 22:29] VITALS: O2SAT 96
[2024-04-09 22:30] VITALS: O2SAT 96
[2024-04-10] VITALS (8 sets, daily range): BP systolic 114–127; BP diastolic 68–83; TEMP 97.7–97.8; O2SAT 97–99
[2024-04-11 07:42] VITALS: BP 106/56; TEMP 98.8; O2SAT 96
[2024-04-11 11:50] VITALS: O2SAT 96
[2024-04-11 11:51] VITALS: O2SAT 96
[2024-04-11 16:50] LABS: APPEARANCE,URINE CLEAR (CLEAR); BILIRUBIN,URINE NEGATIVE (NEGATIVE); BLOOD, URINE TRACE-INTA Ery/uL (NEGATIVE); COLOR,URINE YELLOW (YELLOW); KETONES,URINE NEGATIVE (NEGATIVE); LEUKOCYTE ESTERASE ,URINE 3+ (NEGATIVE); NITRITE, URINE NEGATIVE (NEGATIVE); PH,URINE 7.5 (5.0-8.0); PROTEIN,URINE NEGATIVE (NEGATIVE); UGLUCOSE NEGATIVE (NEGATIVE); UROBILINOGEN,URINE 0.2 EU/dL (0.2)
[2024-04-11 16:52] LABS: ADD URINE CULTURE YES; BACTERIA,URINE Few /HPF (None Seen); SQUAMOUS EPITHELIAL CELL,UR Rare /HPF (None Seen)
[2024-04-11] MEDS: LEVOFLOXACIN (250MG) 250 MG TABLET GT SCH (18:17)
[2024-04-11 19:41] VITALS: BP 121/73; TEMP 98.8; O2SAT 98
[2024-04-11 23:22] VITALS: O2SAT 96
[2024-04-12 07:21] VITALS: BP 125/70; TEMP 98.8; O2SAT 97
[2024-04-12 10:12] VITALS: O2SAT 98
[2024-04-12 19:23] VITALS: BP 124/75; TEMP 99.1; O2SAT 97
[2024-04-12 23:07] VITALS: O2SAT 99
[2024-04-13 07:37] VITALS: BP 101/62; TEMP 98.1; O2SAT 98
[2024-04-13 10:51] VITALS: O2SAT 98
[2024-04-13 22:42] VITALS: O2SAT 99
[2024-04-13 22:52] VITALS: BP 111/77; TEMP 98.6; O2SAT 99
[2024-04-14 05:16] LABS: CALCIUM, SERUM 10.9 mg/dL (8.5-10.1); CARBON DIOXIDE 32 mmol/L (21-32); CHLORIDE 102 mmol/L (98-107); CREATININE 1.2 mg/dL (0.6-1.3); GLUCOSE 116 mg/dL (74-106); POTASSIUM 3.8 mmol/L (3.5-5.1); SODIUM SERUM 140 mmol/L (136-145)
[2024-04-14 05:18] LABS: UREA NITROGEN, BLOOD 86 mg/dL (7-18)
[2024-04-14 07:36] VITALS: BP 120/78; TEMP 97.9; O2SAT 98
[2024-04-14 10:02] VITALS: O2SAT 98
[2024-04-14 10:03] VITALS: O2SAT 98
[2024-04-14 22:30] VITALS: O2SAT 96
[2024-04-15 07:30] VITALS: BP 114/61; TEMP 98.8; O2SAT 98
[2024-04-15 13:41] VITALS: O2SAT 98
[2024-04-15 23:25] VITALS: O2SAT 97
[2024-04-16 07:11] VITALS: BP 114/78; TEMP 98.4; O2SAT 98
[2024-04-16 12:05] VITALS: O2SAT 97
[2024-04-16 12:06] VITALS: O2SAT 97
[2024-04-16 20:00] VITALS: BP 116/69; TEMP 98.3; O2SAT 98
[2024-04-16 22:15] VITALS: O2SAT 98
[2024-04-16 22:16] VITALS: O2SAT 100
[2024-04-17 07:21] VITALS: BP_SYST 115; BP_SYST 117; BP_DIAS 64; BP_DIAS 77; TEMP 97.7; O2SAT 100; O2SAT 99
[2024-04-17 10:04] VITALS: O2SAT 98
[2024-04-17 20:00] VITALS: BP 121/72; TEMP 98.1; O2SAT 97
[2024-04-17 23:05] VITALS: O2SAT 98
[2024-04-18 07:51] VITALS: BP 109/64; TEMP 98.4; O2SAT 100
[2024-04-18 10:52] VITALS: O2SAT 98
[2024-04-18 19:27] VITALS: BP 110/80; TEMP 98.9; O2SAT 97
[2024-04-18 23:01] VITALS: O2SAT 98
[2024-04-18 23:19] VITALS: O2SAT 98
[2024-04-19 07:15] VITALS: BP 109/70; TEMP 99; O2SAT 97
[2024-04-19 10:00] VITALS: O2SAT 98
[2024-04-19 11:25] VITALS: O2SAT 98
[2024-04-19 19:33] VITALS: BP 127/86; TEMP 98.4; O2SAT 98
[2024-04-19 23:31] VITALS: O2SAT 98
[2024-04-20 07:34] VITALS: BP 103/64; TEMP 98.2; O2SAT 99
[2024-04-20 09:00] VITALS: BP 110/66
[2024-04-20 10:28] VITALS: O2SAT 97
[2024-04-20 12:30] VITALS: BP 100/56; TEMP 98.3
[2024-04-20 22:00] VITALS: BP 103/59; TEMP 98.8; O2SAT 98
[2024-04-20 23:17] VITALS: O2SAT 100; O2SAT 98
[2024-04-21 07:22] VITALS: BP 115/69; TEMP 97.4; O2SAT 97
[2024-04-21 10:01] VITALS: O2SAT 97
[2024-04-21] MEDS: IV NS 0.9% 1,000 ML IV PRN (12:00)
[2024-04-21 16:19] LABS: CALCIUM, SERUM 10.2 mg/dL (8.5-10.1); CARBON DIOXIDE 33 mmol/L (21-32); CHLORIDE 99 mmol/L (98-107); CREATININE 1.2 mg/dL (0.6-1.3); GLUCOSE 137 mg/dL (74-106); POTASSIUM 3.5 mmol/L (3.5-5.1); SODIUM SERUM 136 mmol/L (136-145)
[2024-04-21 16:20] LABS: UREA NITROGEN, BLOOD 83 mg/dL (7-18)
[2024-04-21 19:26] VITALS: BP 118/64; TEMP 98.4; O2SAT 98
[2024-04-21 22:48] VITALS: O2SAT 98
[2024-04-22 07:23] VITALS: BP 123/78; TEMP 97.9; O2SAT 98
[2024-04-22 10:31] VITALS: O2SAT 97; O2SAT 98
[2024-04-22] MEDS ORDERED: IV NS 0.9% 1,000 ML IV ONE (12:00)
[2024-04-22] MEDS ORDERED: IV NS 0.9% 1,000 ML IV PRN (12:30)
[2024-04-22 19:31] VITALS: BP 107/70; TEMP 99; O2SAT 98
[2024-04-22 23:16] VITALS: O2SAT 98
[2024-04-23 07:20] VITALS: BP 102/59; TEMP 98.3; O2SAT 98
[2024-04-23 07:34] LABS: BASOPHILS # (AUTO) 0.1 K/uL (0.0-0.2); BASOPHILS % (AUTO) 0.5 % (0.0-2.0); EOSINOPHILS # (AUTO) 0.2 K/uL (0.0-0.7); EOSINOPHILS % (AUTO) 1.8 % (0.0-6.0); HEMATOCRIT 33 % (39-51); HEMOGLOBIN 10.9 g/dL (13.5-17.5); LYMPHOCYTES # (AUTO) 0.6 K/uL (0.8-4.8); LYMPHOCYTES % (AUTO) 5.7 % (20.0-44.0); MEAN CORPUSCULAR HEMOGLOBIN 28 PG (26.0-33.0); MEAN CORPUSCULAR HGB CONC 33 g/dl (31.0-36.0); MEAN CORPUSCULAR VOLUME 86 fL (80-96); MONOCYTES # (AUTO) 0.8 K/uL (0.1-1.30); MONOCYTES % (AUTO) 7.2 % (2.0-12.0); NEUTROPHILS % (AUTO) 84.8 % (43.0-81.0); PLATELET COUNT (AUTO) 147 K/uL (150-450); RED BLOOD CELL COUNT(AUTO) 3.82 MIL/uL (4.5-6.0); WHITE BLOOD COUNT (AUTO) 10.7 K/uL (4.3-11.0)
[2024-04-23 07:53] LABS: ALANINE AMINOTRANSFERASE 23 U/L (12-78); ALBUMIN 2.9 g/dL (3.4-5.0); ALKALINE PHOSPHATASE 80 U/L (46-116); ASPARTATE AMINOTRANSFERASE 17 U/L (15-37); BILIRUBIN,TOTAL 0.3 mg/dL (0.2-1.0); CALCIUM, SERUM 9.8 mg/dL (8.5-10.1); CARBON DIOXIDE 31 mmol/L (21-32); CHLORIDE 106 mmol/L (98-107); CREATININE 0.9 mg/dL (0.6-1.3); GLUCOSE 109 mg/dL (74-106); MAGNESIUM 2.4 mg/dL (1.8-2.4); PHOSPHORUS 3.3 mg/dL (2.5-4.9); POTASSIUM 3.4 mmol/L (3.5-5.1); SODIUM SERUM 143 mmol/L (136-145); TOTAL PROTEIN, SERUM 6.9 g/dL (6.4-8.2); UREA NITROGEN, BLOOD 64 mg/dL (7-18)
[2024-04-23] MEDS: POTASSIUM CHLORIDE 20 MEQ POWDER PACKET GT ONE (11:00)
[2024-04-23] MEDS: IV NS 0.9% 1,000 ML IV PRN (12:00)
[2024-04-23 12:48] VITALS: O2SAT 99
[2024-04-23 12:49] VITALS: O2SAT 96
[2024-04-23 20:48] VITALS: BP 100/59; TEMP 99.7; O2SAT 98
[2024-04-23 23:50] VITALS: O2SAT 98
[2024-04-24] VITALS (8 sets, daily range): BP systolic 110; BP diastolic 59; TEMP 97.2; O2SAT 98–99
[2024-04-25 07:26] VITALS: BP 106/68; TEMP 98.2; O2SAT 98
[2024-04-25 10:23] VITALS: O2SAT 98
[2024-04-25 20:58] VITALS: BP 114/71; TEMP 98.8; O2SAT 97
[2024-04-25 22:06] VITALS: O2SAT 99
[2024-04-26 08:00] VITALS: BP 115/67; TEMP 98.2; O2SAT 99
[2024-04-26 10:36] VITALS: O2SAT 98
[2024-04-26 19:58] VITALS: BP 103/64; TEMP 98.3; O2SAT 97
[2024-04-26 22:13] VITALS: O2SAT 98
[2024-04-27 07:38] VITALS: BP 122/65; TEMP 97.7; O2SAT 98
[2024-04-27 08:11] VITALS: RESP 16; O2SAT 100
[2024-04-27] MEDS: THERAHONEY GEL 1.5 OZ TUBE TP SCH (09:00)
[2024-04-27 10:07] VITALS: O2SAT 98
[2024-04-27 19:25] VITALS: BP 122/78; TEMP 99; O2SAT 97
[2024-04-27 22:32] VITALS: O2SAT 99
[2024-04-28 06:49] LABS: CALCIUM, SERUM 10.1 mg/dL (8.5-10.1); CARBON DIOXIDE 28 mmol/L (21-32); CHLORIDE 102 mmol/L (98-107); CREATININE 0.9 mg/dL (0.6-1.3); GLUCOSE 105 mg/dL (74-106); POTASSIUM 3.7 mmol/L (3.5-5.1); SODIUM SERUM 140 mmol/L (136-145); UREA NITROGEN, BLOOD 64 mg/dL (7-18)
[2024-04-28 08:01] VITALS: BP 121/73; TEMP 99.3; O2SAT 98
[2024-04-28 10:09] VITALS: O2SAT 98
[2024-04-28 10:11] VITALS: O2SAT 98
[2024-04-28 19:19] VITALS: BP 130/79; TEMP 98.6; O2SAT 98
[2024-04-28 23:18] VITALS: O2SAT 98
[2024-04-29 07:35] VITALS: BP 140/76; TEMP 98.1; O2SAT 98
[2024-04-29 10:05] VITALS: O2SAT 98
[2024-04-29 19:38] VITALS: BP 132/80; TEMP 97.9; O2SAT 99
[2024-04-29 22:07] VITALS: O2SAT 99
[2024-04-30 07:57] VITALS: BP 122/72; TEMP 97.7; O2SAT 100
[2024-04-30 10:38] VITALS: O2SAT 98
[2024-04-30 20:22] VITALS: BP 105/62; TEMP 98.2; O2SAT 100
[2024-04-30 23:15] VITALS: O2SAT 99
[2024-04-30 23:16] VITALS: O2SAT 99
[2024-05-01 07:17] VITALS: BP 104/84; TEMP 98.8; O2SAT 99
[2024-05-01 12:43] VITALS: O2SAT 99
[2024-05-01 19:37] VITALS: BP 105/54; TEMP 98.4; O2SAT 100
[2024-05-01 20:21] VITALS: O2SAT 98
[2024-05-02 00:08] VITALS: O2SAT 99
[2024-05-02 08:10] VITALS: BP 118/65; TEMP 98.2; O2SAT 98
[2024-05-02 11:38] VITALS: O2SAT 97; O2SAT 99
[2024-05-02 18:55] VITALS: BP 104/81; TEMP 97.5; O2SAT 98
[2024-05-02 21:07] VITALS: O2SAT 95
[2024-05-03 00:29] VITALS: O2SAT 99
[2024-05-03 07:56] VITALS: BP 103/75; TEMP 97.9; O2SAT 95
[2024-05-03 10:05] VITALS: O2SAT 99
[2024-05-03 19:40] VITALS: BP 109/65; TEMP 98.9; O2SAT 97
[2024-05-03 23:57] VITALS: O2SAT 97
[2024-05-04 07:25] VITALS: BP 123/74; TEMP 98.8; O2SAT 96
[2024-05-04 10:25] VITALS: O2SAT 98
[2024-05-04 22:31] VITALS: O2SAT 97
[2024-05-05 10:30] VITALS: O2SAT 98
[2024-05-05 10:54] LABS: CALCIUM, SERUM 9.5 mg/dL (8.5-10.1); CREATININE 0.9 mg/dL (0.6-1.3); POTASSIUM 3.8 mmol/L (3.5-5.1)
[2024-05-05 19:49] VITALS: BP 131/67; TEMP 98.1; O2SAT 99
[2024-05-05 22:52] VITALS: O2SAT 99
[2024-05-06 07:16] VITALS: BP 116/65; TEMP 99.1; O2SAT 95
[2024-05-06 11:27] VITALS: O2SAT 96; O2SAT 97
[2024-05-06 20:28] VITALS: BP 128/61; TEMP 98; O2SAT 99
[2024-05-06 22:10] VITALS: O2SAT 98
[2024-05-07 07:30] VITALS: BP 116/64; TEMP 98.2; O2SAT 98
[2024-05-07 10:00] VITALS: O2SAT 96; O2SAT 97
[2024-05-07 10:50] VITALS: O2SAT 98
[2024-05-07 20:00] VITALS: BP 128/71; TEMP 97.6; O2SAT 99
[2024-05-07 22:51] VITALS: O2SAT 98
[2024-05-07 22:52] VITALS: O2SAT 98
[2024-05-08] MEDS: METOCLOPRAMIDE HCL 10 MG/10 ML UDC GT PRN (05:47)
[2024-05-08 07:27] VITALS: BP 110/61; TEMP 99.7; O2SAT 99
[2024-05-08 07:45] LABS: BASOPHILS % (AUTO) 0.2 % (0.0-2.0); EOSINOPHILS # (AUTO) 0.2 K/uL (0.0-0.7); EOSINOPHILS % (AUTO) 1.1 % (0.0-6.0); HEMATOCRIT 34 % (39-51); HEMOGLOBIN 11.2 g/dL (13.5-17.5); LYMPHOCYTES # (AUTO) 0.6 K/uL (0.8-4.8); LYMPHOCYTES % (AUTO) 4.1 % (20.0-44.0); MEAN CORPUSCULAR HEMOGLOBIN 28 PG (26.0-33.0); MEAN CORPUSCULAR HGB CONC 33 g/dl (31.0-36.0); MEAN CORPUSCULAR VOLUME 85 fL (80-96); MONOCYTES # (AUTO) 1.2 K/uL (0.1-1.30); MONOCYTES % (AUTO) 8.1 % (2.0-12.0); NEUTROPHILS # (AUTO) 12.9 K/uL (1.8-8.9); NEUTROPHILS % (AUTO) 86.5 % (43.0-81.0); PLATELET COUNT (AUTO) 160 K/uL (150-450); RED BLOOD CELL COUNT(AUTO) 3.99 MIL/uL (4.5-6.0); RED CELL DISTRIBUTION WIDTH 16.3 % (11.5-15.0); WHITE BLOOD COUNT (AUTO) 14.9 K/uL (4.3-11.0)
[2024-05-08 10:00] VITALS: O2SAT 98
[2024-05-08 10:58] VITALS: O2SAT 98
[2024-05-08 20:00] VITALS: BP 113/69; TEMP 98.4; O2SAT 98
[2024-05-08 20:53] LABS: APPEARANCE,URINE SLIGHTLY CLOUDY (CLEAR); BILIRUBIN,URINE NEGATIVE (NEGATIVE); BLOOD, URINE 2+ Ery/uL (NEGATIVE); COLOR,URINE YELLOW (YELLOW); KETONES,URINE NEGATIVE (NEGATIVE); LEUKOCYTE ESTERASE ,URINE 3+ (NEGATIVE); NITRITE, URINE NEGATIVE (NEGATIVE); PROTEIN,URINE NEGATIVE (NEGATIVE); UGLUCOSE NEGATIVE (NEGATIVE); UROBILINOGEN,URINE 0.2 EU/dL (0.2)
[2024-05-08 21:22] LABS: ADD URINE CULTURE YES; SQUAMOUS EPITHELIAL CELL,UR 0-2 /HPF (None Seen); WBC,URINE 21-50 /HPF (0-3)
[2024-05-08 21:23] LABS: BACTERIA,URINE 2+ /HPF (None Seen); TRIPLE PHOSPHATE CRYSTAL,UR Few /HPF (None Seen)
[2024-05-08 22:38] VITALS: O2SAT 97
[2024-05-09 07:47] VITALS: BP 130/66; TEMP 98.4; O2SAT 98
[2024-05-09] MEDS: HEPARIN SODIUM, PORCINE 5000 UNITS/1 ML VIAL SQ SCH (09:22)
[2024-05-09 11:15] VITALS: O2SAT 98
[2024-05-09 19:48] VITALS: BP 115/71; TEMP 98.5; O2SAT 100
[2024-05-09 23:19] VITALS: O2SAT 95
[2024-05-10 07:22] VITALS: BP 109/61; TEMP 98.1; O2SAT 99
[2024-05-10 12:41] VITALS: O2SAT 97
[2024-05-10 15:06] LABS: BASOPHILS % (AUTO) 0.4 % (0.0-2.0); EOSINOPHILS # (AUTO) 0.2 K/uL (0.0-0.7); EOSINOPHILS % (AUTO) 1.9 % (0.0-6.0); HEMATOCRIT 35 % (39-51); HEMOGLOBIN 11.8 g/dL (13.5-17.5); LYMPHOCYTES # (AUTO) 0.7 K/uL (0.8-4.8); LYMPHOCYTES % (AUTO) 7.4 % (20.0-44.0); MEAN CORPUSCULAR HEMOGLOBIN 29 PG (26.0-33.0); MEAN CORPUSCULAR HGB CONC 34 g/dl (31.0-36.0); MEAN CORPUSCULAR VOLUME 83 fL (80-96); MONOCYTES % (AUTO) 10.4 % (2.0-12.0); NEUTROPHILS # (AUTO) 7.4 K/uL (1.8-8.9); NEUTROPHILS % (AUTO) 79.9 % (43.0-81.0); PLATELET COUNT (AUTO) 166 K/uL (150-450); RED BLOOD CELL COUNT(AUTO) 4.14 MIL/uL (4.5-6.0); RED CELL DISTRIBUTION WIDTH 16.2 % (11.5-15.0); WHITE BLOOD COUNT (AUTO) 9.3 K/uL (4.3-11.0)
[2024-05-10] MEDS: CEFTRIAXONE 1 G in IV D5W 50 ML IV SCH (16:20)
[2024-05-10 16:49] LABS: APPEARANCE,URINE SLIGHTLY CLOUDY (CLEAR); BILIRUBIN,URINE NEGATIVE (NEGATIVE); BLOOD, URINE 3+ Ery/uL (NEGATIVE); COLOR,URINE YELLOW (YELLOW); KETONES,URINE NEGATIVE (NEGATIVE); LEUKOCYTE ESTERASE ,URINE 3+ (NEGATIVE); NITRITE, URINE NEGATIVE (NEGATIVE); PROTEIN,URINE NEGATIVE (NEGATIVE); UGLUCOSE NEGATIVE (NEGATIVE); UROBILINOGEN,URINE 0.2 EU/dL (0.2)
[2024-05-10 16:55] LABS: ADD URINE CULTURE YES; BACTERIA,URINE Moderate /HPF (None Seen); RBC,URINE 21-50 /HPF (0-2); WBC,URINE TOO NUMEROUS TO COUN /HPF (0-3)
[2024-05-10 16:56] LABS: SQUAMOUS EPITHELIAL CELL,UR None Seen /HPF (None Seen)
[2024-05-10 19:25] VITALS: BP 107/68; TEMP 98.6; O2SAT 100
[2024-05-10 23:01] VITALS: O2SAT 99
[2024-05-11 07:28] VITALS: BP 131/77; TEMP 98.8; O2SAT 98
[2024-05-11 10:18] VITALS: O2SAT 97
[2024-05-11 20:00] VITALS: BP 113/73; TEMP 98; O2SAT 99
[2024-05-11 22:42] VITALS: O2SAT 97
[2024-05-12 07:30] VITALS: BP 105/77; TEMP 98.2; O2SAT 100
[2024-05-12 08:18] LABS: POTASSIUM 3.4 mmol/L (3.5-5.1)
[2024-05-12 08:34] LABS: CALCIUM, SERUM 9.9 mg/dL (8.5-10.1)
[2024-05-12 10:12] VITALS: O2SAT 97
[2024-05-12] MEDS: POTASSIUM CHLORIDE 20 MEQ POWDER PACKET PO ONE (16:22)
[2024-05-12 20:00] VITALS: BP 115/67; TEMP 98.1; O2SAT 99
[2024-05-12 22:23] VITALS: O2SAT 97
[2024-05-13 07:28] VITALS: BP 100/56; TEMP 98.1; O2SAT 100
[2024-05-13 10:02] VITALS: O2SAT 97
[2024-05-13 18:58] VITALS: BP 114/66; TEMP 99.3; O2SAT 99
[2024-05-13 22:14] VITALS: O2SAT 98
[2024-05-14 07:13] VITALS: BP 110/65; TEMP 98.2; O2SAT 100
[2024-05-14 10:02] VITALS: O2SAT 98
[2024-05-14] MEDS: MEROPENEM 500 MG in IV NS 0.9% 50 ML IV SCH (12:15)
[2024-05-14 20:00] VITALS: BP 128/81; TEMP 98.1; O2SAT 99
[2024-05-14 23:57] VITALS: O2SAT 98
[2024-05-14 23:58] VITALS: O2SAT 98
[2024-05-15 07:31] VITALS: BP 101/56; TEMP 98.1; O2SAT 98
[2024-05-15 10:00] VITALS: O2SAT 97
[2024-05-15 20:00] VITALS: BP 118/62; TEMP 98.8; O2SAT 95
[2024-05-15 23:19] VITALS: O2SAT 97
[2024-05-16 07:22] VITALS: BP 125/77; TEMP 98.6; O2SAT 99
[2024-05-16 10:40] VITALS: O2SAT 97
[2024-05-16 20:04] VITALS: BP 108/61; TEMP 98.1; O2SAT 98
[2024-05-16 22:48] VITALS: O2SAT 98
[2024-05-17 07:30] VITALS: BP 135/76; TEMP 98.4; O2SAT 100
[2024-05-17] MEDS: NYSTATIN CREAM 15 GM TUBE TP SCH (08:09)
[2024-05-17] MEDS: TRIAMCINOLONE ACETONIDE 0.1% CR 15 GM TUBE TP SCH (08:10)
[2024-05-17 10:27] VITALS: O2SAT 98
[2024-05-17 10:32] VITALS: O2SAT 98
[2024-05-17 19:30] VITALS: BP 108/60; TEMP 98.2; O2SAT 97
[2024-05-17 22:19] VITALS: O2SAT 96
[2024-05-18 07:46] VITALS: BP 113/63; TEMP 98.1; O2SAT 98
[2024-05-18 10:02] VITALS: O2SAT 97
[2024-05-18 10:06] VITALS: O2SAT 97
[2024-05-18 19:02] VITALS: BP 115/67; TEMP 98.6; O2SAT 97
[2024-05-18 23:24] VITALS: O2SAT 98
[2024-05-19 07:44] VITALS: BP 110/61; TEMP 98.1; O2SAT 97
[2024-05-19 08:14] LABS: CALCIUM, SERUM 9.8 mg/dL (8.5-10.1); CREATININE 0.8 mg/dL (0.6-1.3); POTASSIUM 3.4 mmol/L (3.5-5.1)
[2024-05-19 10:36] VITALS: O2SAT 97
[2024-05-19] MEDS: POTASSIUM CHLORIDE 20 MEQ POWDER PACKET NG SCH (12:53)
[2024-05-19 20:48] VITALS: BP 116/64; TEMP 97.9; O2SAT 99
[2024-05-19 22:15] VITALS: O2SAT 98
[2024-05-20 07:05] VITALS: BP 107/79; TEMP 97.9; O2SAT 96
[2024-05-20 10:17] VITALS: O2SAT 97
[2024-05-20 20:54] VITALS: BP 122/65; TEMP 98.4; O2SAT 99
[2024-05-20 22:01] VITALS: O2SAT 99
[2024-05-21 08:14] VITALS: BP 128/71; TEMP 98.2; O2SAT 99
[2024-05-21 10:17] VITALS: O2SAT 98
[2024-05-21 20:00] VITALS: BP 126/77; TEMP 98.1; O2SAT 99
[2024-05-21 22:08] VITALS: O2SAT 98
[2024-05-21 22:10] VITALS: O2SAT 98
[2024-05-22 05:08] VITALS: BP 105/63
[2024-05-29] MEDS ORDERED: TUBERCULIN,PURIF.PROT.DERIV. 5 TU/0.1 ML VIAL ID SCH (09:00)
== END 2024-05-20 23:59 | disposition still patient (30) | DRG 166 ==
LOC: SA 16:32
PROVIDERS: ADMIT Internal Medicine; ATTEND Internal Medicine
PROC: 5A1945Z Respiratory Ventilation, 24-96 Consecutive Hours (ICD-10-PCS; principal; 2023-08-22)
PROC: 5A1955Z Respiratory Ventilation, Greater than 96 Consecutive Hours (ICD-10-PCS; 2023-08-29)
PROC: 5A1955Z Respiratory Ventilation, Greater than 96 Consecutive Hours (ICD-10-PCS; 2023-08-29)
PROC: 0QB10ZZ Excision of Sacrum, Open Approach (ICD-10-PCS; 2023-08-30)
PROC: 0QB10ZZ Excision of Sacrum, Open Approach (ICD-10-PCS; 2023-09-11)
PROC: 0QB10ZZ Excision of Sacrum, Open Approach (ICD-10-PCS; 2023-09-18)
PROC: 0QB10ZZ Excision of Sacrum, Open Approach (ICD-10-PCS; 2023-09-25)
PROC: 0JBL0ZZ Excision of Right Upper Leg Subcutaneous Tissue and Fascia, Open Approach (ICD-10-PCS; 2023-10-02)
PROC: 0QB10ZZ Excision of Sacrum, Open Approach (ICD-10-PCS; 2023-10-02)
PROC: 0JBL0ZZ Excision of Right Upper Leg Subcutaneous Tissue and Fascia, Open Approach (ICD-10-PCS; 2023-10-09)
PROC: 0QB10ZZ Excision of Sacrum, Open Approach (ICD-10-PCS; 2023-10-09)
PROC: 0JBL0ZZ Excision of Right Upper Leg Subcutaneous Tissue and Fascia, Open Approach (ICD-10-PCS; 2023-10-16)
PROC: 0QB10ZZ Excision of Sacrum, Open Approach (ICD-10-PCS; 2023-10-16)
PROC: 0JBL0ZZ Excision of Right Upper Leg Subcutaneous Tissue and Fascia, Open Approach (ICD-10-PCS; 2023-10-23)
PROC: 0QB10ZZ Excision of Sacrum, Open Approach (ICD-10-PCS; 2023-10-23)
PROC: 05H933Z Insertion of Infusion Device into Right Brachial Vein, Percutaneous Approach (ICD-10-PCS; 2023-11-03)
PROC: 0KBP0ZZ Excision of Left Hip Muscle, Open Approach (ICD-10-PCS; 2023-11-09)
PROC: 0KBN0ZZ Excision of Right Hip Muscle, Open Approach (ICD-10-PCS; 2023-11-09)
PROC: 0KBP0ZZ Excision of Left Hip Muscle, Open Approach (ICD-10-PCS; 2023-11-15)
PROC: 0KBN0ZZ Excision of Right Hip Muscle, Open Approach (ICD-10-PCS; 2023-11-15)
PROC: 0KBP0ZZ Excision of Left Hip Muscle, Open Approach (ICD-10-PCS; 2023-11-20)
PROC: 0KBN0ZZ Excision of Right Hip Muscle, Open Approach (ICD-10-PCS; 2023-11-20)
PROC: 0KBP0ZZ Excision of Left Hip Muscle, Open Approach (ICD-10-PCS; 2023-11-27)
PROC: 0KBN0ZZ Excision of Right Hip Muscle, Open Approach (ICD-10-PCS; 2023-11-27)
PROC: 0JBN0ZZ Excision of Right Lower Leg Subcutaneous Tissue and Fascia, Open Approach (ICD-10-PCS; 2023-12-03)
PROC: 0KBP0ZZ Excision of Left Hip Muscle, Open Approach (ICD-10-PCS; 2023-12-04)
PROC: 0KBN0ZZ Excision of Right Hip Muscle, Open Approach (ICD-10-PCS; 2023-12-04)
PROC: 0KBP0ZZ Excision of Left Hip Muscle, Open Approach (ICD-10-PCS; 2023-12-13)
PROC: 0KBN0ZZ Excision of Right Hip Muscle, Open Approach (ICD-10-PCS; 2023-12-13)
PROC: 0KBP0ZZ Excision of Left Hip Muscle, Open Approach (ICD-10-PCS; 2023-12-25)
PROC: 0KBN0ZZ Excision of Right Hip Muscle, Open Approach (ICD-10-PCS; 2023-12-25)
PROC: 0KBP0ZZ Excision of Left Hip Muscle, Open Approach (ICD-10-PCS; 2024-01-02)
PROC: 0KBN0ZZ Excision of Right Hip Muscle, Open Approach (ICD-10-PCS; 2024-01-02)
PROC: 0KBP0ZZ Excision of Left Hip Muscle, Open Approach (ICD-10-PCS; 2024-01-08)
PROC: 0KBN0ZZ Excision of Right Hip Muscle, Open Approach (ICD-10-PCS; 2024-01-08)
PROC: 0KBP0ZZ Excision of Left Hip Muscle, Open Approach (ICD-10-PCS; 2024-01-15)
PROC: 0KBN0ZZ Excision of Right Hip Muscle, Open Approach (ICD-10-PCS; 2024-01-15)
PROC: 0KBP0ZZ Excision of Left Hip Muscle, Open Approach (ICD-10-PCS; 2024-01-22)
PROC: 0KBN0ZZ Excision of Right Hip Muscle, Open Approach (ICD-10-PCS; 2024-01-22)
PROC: 0KBP0ZZ Excision of Left Hip Muscle, Open Approach (ICD-10-PCS; 2024-01-29)
PROC: 0KBN0ZZ Excision of Right Hip Muscle, Open Approach (ICD-10-PCS; 2024-01-29)
PROC: 0KBP0ZZ Excision of Left Hip Muscle, Open Approach (ICD-10-PCS; 2024-02-05)
PROC: 0KBN0ZZ Excision of Right Hip Muscle, Open Approach (ICD-10-PCS; 2024-02-05)
PROC: 0KBP0ZZ Excision of Left Hip Muscle, Open Approach (ICD-10-PCS; 2024-02-12)
PROC: 0KBN0ZZ Excision of Right Hip Muscle, Open Approach (ICD-10-PCS; 2024-02-12)
PROC: 0KBP0ZZ Excision of Left Hip Muscle, Open Approach (ICD-10-PCS; 2024-02-21)
PROC: 0KBN0ZZ Excision of Right Hip Muscle, Open Approach (ICD-10-PCS; 2024-02-21)
PROC: 0KBP0ZZ Excision of Left Hip Muscle, Open Approach (ICD-10-PCS; 2024-02-26)
PROC: 0KBN0ZZ Excision of Right Hip Muscle, Open Approach (ICD-10-PCS; 2024-02-26)
PROC: 0KBP0ZZ Excision of Left Hip Muscle, Open Approach (ICD-10-PCS; 2024-03-04)
PROC: 0KBN0ZZ Excision of Right Hip Muscle, Open Approach (ICD-10-PCS; 2024-03-04)
PROC: 0KBP0ZZ Excision of Left Hip Muscle, Open Approach (ICD-10-PCS; 2024-03-11)
PROC: 0KBN0ZZ Excision of Right Hip Muscle, Open Approach (ICD-10-PCS; 2024-03-11)
PROC: 0KBP0ZZ Excision of Left Hip Muscle, Open Approach (ICD-10-PCS; 2024-03-18)
PROC: 0KBN0ZZ Excision of Right Hip Muscle, Open Approach (ICD-10-PCS; 2024-03-18)
PROC: 0KBP0ZZ Excision of Left Hip Muscle, Open Approach (ICD-10-PCS; 2024-03-25)
PROC: 0KBN0ZZ Excision of Right Hip Muscle, Open Approach (ICD-10-PCS; 2024-03-25)
PROC: 0KBP0ZZ Excision of Left Hip Muscle, Open Approach (ICD-10-PCS; 2024-04-03)
PROC: 0KBN0ZZ Excision of Right Hip Muscle, Open Approach (ICD-10-PCS; 2024-04-03)
PROC: 0KBP0ZZ Excision of Left Hip Muscle, Open Approach (ICD-10-PCS; 2024-04-08)
PROC: 0KBN0ZZ Excision of Right Hip Muscle, Open Approach (ICD-10-PCS; 2024-04-08)
PROC: 0KBP0ZZ Excision of Left Hip Muscle, Open Approach (ICD-10-PCS; 2024-04-15)
PROC: 0KBN0ZZ Excision of Right Hip Muscle, Open Approach (ICD-10-PCS; 2024-04-15)
PROC: 0KBP0ZZ Excision of Left Hip Muscle, Open Approach (ICD-10-PCS; 2024-04-22)
PROC: 0KBN0ZZ Excision of Right Hip Muscle, Open Approach (ICD-10-PCS; 2024-04-22)
PROC: 0KBP0ZZ Excision of Left Hip Muscle, Open Approach (ICD-10-PCS; 2024-04-29)
PROC: 0KBN0ZZ Excision of Right Hip Muscle, Open Approach (ICD-10-PCS; 2024-04-29)
PROC: 0KBP0ZZ Excision of Left Hip Muscle, Open Approach (ICD-10-PCS; 2024-05-06)
PROC: 0KBN0ZZ Excision of Right Hip Muscle, Open Approach (ICD-10-PCS; 2024-05-06)
PROC: 0KBP0ZZ Excision of Left Hip Muscle, Open Approach (ICD-10-PCS; 2024-05-15)
PROC: 0KBN0ZZ Excision of Right Hip Muscle, Open Approach (ICD-10-PCS; 2024-05-15)
DX: J96.21 Acute and chronic respiratory failure with hypoxia (principal); I21.A1 Myocardial infarction type 2; J69.0 Pneumonitis due to inhalation of food and vomit; L89.154 Pressure ulcer of sacral region, stage 4; E44.0 Moderate protein-calorie malnutrition; G93.1 Anoxic brain damage, not elsewhere classified; R47.01 Aphasia; J98.11 Atelectasis; N17.9 Acute kidney failure, unspecified; J95.851 Ventilator associated pneumonia; C92.11 Chronic myeloid leukemia, BCR/ABL-positive, in remission; E87.1 Hypo-osmolality and hyponatremia; N39.0 Urinary tract infection, site not specified; Z99.11 Dependence on respirator [ventilator] status; D63.8 Anemia in other chronic diseases classified elsewhere; E03.9 Hypothyroidism, unspecified; E11.9 Type 2 diabetes mellitus without complications; E86.0 Dehydration; E88.09 Other disorders of plasma-protein metabolism, not elsewhere classified; I10 Essential (primary) hypertension; I69.198 Other sequelae of nontraumatic intracerebral hemorrhage; L30.4 Erythema intertrigo; R13.10 Dysphagia, unspecified; Z66 Do not resuscitate; Z95.828 Presence of other vascular implants and grafts; Z93.1 Gastrostomy status; Z86.718 Personal history of other venous thrombosis and embolism; D63.1 Anemia in chronic kidney disease; E11.22 Type 2 diabetes mellitus with diabetic chronic kidney disease; I12.9 Hypertensive chronic kidney disease with stage 1 through stage 4 chronic kidney disease, or unspecified chronic kidney disease; M89.8X9 Other specified disorders of bone, unspecified site; N18.9 Chronic kidney disease, unspecified; I25.2 Old myocardial infarction; Z93.0 Tracheostomy status; E83.52 Hypercalcemia; E87.6 Hypokalemia; I25.10 Atherosclerotic heart disease of native coronary artery without angina pectoris; S81.812A Laceration without foreign body, left lower leg, initial encounter; X58.XXXA Exposure to other specified factors, initial encounter; Y93.9 Activity, unspecified; Y92.239 Unspecified place in hospital as the place of occurrence of the external cause
CPT/HCPCS: 31720; 36410; 36415; 36600; 71045-TC; 74018; 80048-TC; 80053-TC; 80202-TC; 81001; 82306; 82565-TC; 82570-TC; 82652; 82803-TC; 82962-TC; 83735-TC; 83970; 84100-TC; 84134-TC; 84155; 84165; 84260; 84300-TC; 84443-TC; 84520-TC; 85025-TC; 86316; 86580-TC; 86850-TC; 87040-TC; 87086-TC; 92507-TC; 92521; 94002; 94002-TC; 94003-TC; 94640-TC; 94760-TC; 94762-TC; 94799-TC; 97110-TC; 97112-TC; 97164; 97530-TC; 97760-TC; 99082-TC; A4216; A4217; A4223; A4349; A4623; A7526; J0692; J0696; J1644; J1953; J1956; J2185; J3370; J3371; J3490; J7030; J7060; J8597; L8501